=== PATIENT | female | born 1960 | race Caucasian/White ===

== ENCOUNTER 2019-06-27 07:25 | Inpatient (IN) | payer OTHER ==
[2019-06-27 08:03] LABS: Absolute Lymphocytes (CBC) 0.7 K/uL (0.7-4.9); Basophils % 0.4 % (0-1.3); Hematocrit 40.7 % (36.0-45.0); RBC Red Blood Cell Count 4.59 M/uL (3.86-4.86)
[2019-06-27] MEDS ORDERED: NA CHLORIDE 0.9% 1,000 ML ONE (08:24)
[2019-06-27] MEDS ORDERED: MEPERIDINE HCL 25 MG/0.5 ML ONE ×2 (08:24→10:47)
[2019-06-27] MEDS ORDERED: ONDANSETRON 4 MG/2 ML VIAL ONE (08:26)
[2019-06-27 08:29] LABS: Albumin 3.6 g/dL (3.4-5.0); Bilirubin Direct 0.2 mg/dL (0-0.2); Bilirubin Total 0.7 mg/dL (0.2-1.0); Potassium 3.8 mmol/L (3.5-5.1); Protein, Total 8.7 g/dL (6.4-8.2)
--- NOTE | 2019-06-27 09:33 | RAD REPORT ---
EXAM DESCRIPTION: CT - Abdomen Pelvis W Contrast - 06/27/2019 9:00 am CLINICAL HISTORY: Abdominal pain COMPARISON: 2018 TECHNIQUE: Computed axial tomography of the abdomen pelvis was obtained. 100 cc Isovue-300 was admin istered intravenously. Oral contrast was not requested which limits evaluation of bowel. All CT scans are performed using dose optimization technique as appropriate and may include automated exposure control or mA/KV adjustment according to patient size. FINDINGS: The liver has a diminished attenuation. Caudate and left lobes are prominent. Innumerable tiny low-density areas are present. Upper quadrant varices are present The spleen measures 14 centimeters. Multiple, bilateral renal calculi. No hydronephrosis. Renal cortical thinning perhaps secondary to pr ior inflammation The pancreas and adrenals unremarkable Postsurgical changes involve the the small bowel. A loop of jejunum is dilated within the anterior le ft lower abdomen measuring 4.5 centimeters. This is near the anastomotic site. Ill-defined stranding is present within the fat surrounding the proximal inferior mesenteric artery. There is no evidence of diverticulitis Borderline gallbladder distention IMPRESSION: Nonobstructing renal calculi Prominence of the caudate and left lobes of the liver probably indicating cirrhosis. Innumerable low- density areas within the liver are nonspecific. These may represent regenerating nodules. MRI are rec ommended for further evaluation Mild splenomegaly Dilated jejunum near the anastomotic site may represent an ileus or atonic loop. If the patient's lou n persists then followup complete abdominal series recommended Stranding within the fat adjacent to the inferior mesenteric artery may indicate inflammation
--- NOTE | 2019-06-27 09:34 | RAD REPORT ---
EXAM DESCRIPTION: US - Abdomen Exam Limited - 06/27/2019 8:53 am CLINICAL HISTORY: Abdominal pain. COMPARISON: None. FINDINGS: The gallbladder wall is not thickened. A gallstone is not seen. Small amount of sludge. B orderline gallbladder distention The biliary tree is normal caliber. IMPRESSION: Borderline gallbladder distention with a small amount of sludge
[2019-06-27 09:53] LABS: Blood Morphology Comment NOT SEEN (NOT SEEN); Platelet Estimate DECR; Urine White Blood Cell Casts OK
--- NOTE | 2019-06-27 10:52 | ER ---
Nurse's Notes [facility] Name: Pricila Franklin Age: 59 yrs Sex: Female : 1960 Arrival Date: 06/27/2019 Time: 07:27 Bed 17 Private MD: Mack Root T Diagnosis: Vomiting, unspecified;Unspecified abdominal pain;Unspecified cirrhosis of liver;Thrombocytopenia, unspecified Presentation: 06/27 07:36 Presenting complaint: Patient states: epigastric pain with RUQ pain, n/v since sv midnight. Denies diarrhea. Transition of care: patient was not received from another setting of care. Onset of symptoms was June 27, 2019 at 00:00. Risk Assessment: Do you want to hurt yourself or someone else? Patient reports no desire to harm self or others. Initial Sepsis Screen: Does the patient meet any 2 criteria? No. Patient's initial sepsis screen is negative. Does the patient have a suspected source of infection? No. Patient's initial sepsis screen is negative. Care prior to arrival: None. 07:36 Method Of Arrival: Ambulatory sv 07:36 Acuity: GABBY 3 sv Triage Assessment: 07:36 General: Appears in no apparent distress. uncomfortable, well groomed, well developed, sv Behavior is calm, cooperative, appropriate for age. Pain: Complains of pain in epigastric area and right upper quadrant Pain currently is 9 out of 10 on a pain scale. Quality of pain is described as crampy, Pain began midnight Is continuous. Neuro: Level of Consciousness is awake, alert, obeys commands, Oriented to person, place, time, situation, Gait is steady. Respiratory: Airway is patent Respiratory effort is even, unlabored, Respiratory pattern is regular, symmetrical. GI: Abdomen is round non-distended, Reports nausea, vomiting, Patient currently denies diarrhea. Derm: Skin is normal. Historical: - Allergies: 07:43 No Known Allergies; sv - Home Meds: 07:43 Estradiol Oral [Active]; unk sleep med [Active]; unk allergy med [Active]; sv 08:52 Metformin Oral [Active]; sv - PMHx: 08:52 Diabetes - NIDDM; sv - PSHx: 07:43 Hysterectomy; Bowel resection; ovary; sv - Immunization history:: Adult Immunizations up to date. - Family history:: not pertinent. - Social history:: Smoking status: Patient/guardian denies using tobacco. - Ebola Screening: : Patient negative for fever greater than or equal to 101.5 degrees Fahrenheit, and additional compatible Ebola Virus Disease symptoms Patient denies exposure to infectious person Patient denies travel to an Ebola-affected area in the 21 days before illness onset No symptoms or risks identified at this time. - Hospitalizations: : No recent hospitalization is reported. Screenin:45 Abuse screen: Denies threats or abuse. Denies injuries from another. Nutritional sv screening: No deficits noted. Tuberculosis screening: No symptoms or risk factors identified. Fall Risk None identified. Assessment: 08:25 Reassessment: Patient appears in no apparent distress at this time. No changes from sv previously documented assessment. Patient and/or family updated on plan of care and expected duration. Pain level reassessed. Patient is alert, oriented x 3, equal unlabored respirations, skin warm/dry/pink. See triage assessment. 08:51 Reassessment: Ultrasound completed at bedside. sv 09:50 Reassessment: Patient appears in no apparent distress at this time. Patient and/or sv family updated on plan of care and expected duration. Pain level reassessed. Patient is alert, oriented x 3, equal unlabored respirations, skin warm/dry/pink. 10:50 Reassessment: Patient appears in no apparent distress at this time. Patient and/or sv family updated on plan of care and expected duration. Pain level reassessed. Patient is alert, oriented x 3, equal unlabored respirations, skin warm/dry/pink. Reports pain is coming back, informed Dr Paz, medication ordered. 11:06 Reassessment: Dr. Cobos at bedside. ca1 11:06 Reassessment: Patient appears in no apparent distress at this time. Patient and/or ca1 family updated on plan of care and expected duration. Pain level reassessed. Patient is alert, oriented x 3, equal unlabored respirations, skin warm/dry/pink. 11:06 GI: Bowel sounds present X 4 quads. Abd is soft X 4 quads Abdomen is tender to ca1 palpation in right upper quadrant and epigastric area. 12:33 Reassessment: Patient appears in no apparent distress at this time. Patient and/or ca1 family updated on plan of care and expected duration. Pain level reassessed. Patient is alert, oriented x 3, equal unlabored respirations, skin warm/dry/pink. Pending room assignment. 13:35 Reassessment: Patient appears in no apparent distress at this time. Patient and/or ca1 family updated on plan of care and expected duration. Pain level reassessed. Patient is alert, oriented x 3, equal unlabored respirations, skin warm/dry/pink. 13:52 Reassessment: Called for report, Nurse will call back. ca1 14:00 Reassessment: Patient appears in no apparent distress at this time. Patient and/or jb8 family updated on plan of care and expected duration. Pain level reassessed. Patient is alert, oriented x 3, equal unlabored respirations, skin warm/dry/pink. Vital Signs: 07:43 BP 156 / 101 LA Sitting (auto/lg); Pulse 90; Resp 18; Temp 97.5(TE); Pulse Ox 99% ; sv Weight 79.38 kg; Height 5 ft. 1 in. (154.94 cm); Pain 9/10; 08:30 BP 141 / 84; Pulse 89; Resp 18; Pulse Ox 98% on R/A; sv 08:45 BP 153 / 81; Pulse 94; Resp 18; Pulse Ox 98% ; sv 10:31 BP 147 / 70; Pulse 88; Resp 16; Pulse Ox 98% ; sv 11:38 BP 119 / 79; Pulse 83; Resp 17 S; Pulse Ox 100% on R/A; ca1 12:33 BP 113 / 73; Pulse 91; Resp 16 S; Pulse Ox 98% on R/A; ca1 13:35 BP 106 / 61; Pulse 87; Resp 16 S; Pulse Ox 97% on R/A; ca1 14:00 BP 106 / 61; Pulse 87; Resp 19; Pulse Ox 97% ; jb8 07:43 Body Mass Index 33.07 (79.38 kg, 154.94 cm) sv ED Course: 07:27 Patient arrived in ED. ag5 07:28 Mack Root MD is Private Physician. ag5 07:35 Darío Paz MD is Attending Physician. rn 07:36 Erinn Becerra RN is Primary Nurse. sv 07:41 Triage completed. sv 07:45 Radiology exam delayed due to lab results not completed at this time. (BUN/Creatinine). mw3 07:45 Patient has correct armband on for positive identification. Placed in gown. Bed in low sv position. Call light in reach. Pulse ox on. NIBP on. Door closed. Head of bed elevated. 08:05 Initial lab(s) drawn, by me, sent to lab. Inserted saline lock: 22 gauge in right ms forearm, using aseptic technique. Blood collected. 08:45 Radiology exam delayed due to pt having an ultrasound. bq 08:[address] via stretcher. sv 08:54 US Abdomen Limited In Process Unspecified. EDMS 08:54 Ultrasound completed. Patient tolerated well. sg3 08:58 CT completed. Patient tolerated procedure well. Patient moved back from CT. bq 09:00 CT Abd/Pelvis - IV Contrast Only In Process Unspecified. EDMS 10:50 Robbie Cobos is Hospitalizing Provider. rn 11:00 Arm band placed on right wrist. ca1 11:00 Report given to Cecily BOYLE. sv 13:28 Cecily Sawyer RN is Primary Nurse. ca1 13:50 No provider procedures requiring assistance completed. Patient admitted, IV remains in ca1 place. Administered Medications: 08:25 Drug: NS 0.9% 1000 ml Route: IV; Rate: 1000 ml; Site: right forearm; sv 13:27 Follow up: Response: No adverse reaction; IV Status: Completed infusion; IV Intake: ca1 1000ml 08:25 Drug: Zofran 4 mg Route: IVP; Site: right forearm; sv 11:00 Follow up: Response: No adverse reaction; Nausea is decreased ca1 08:27 Drug: Demerol 25 mg {Note: RASS1.} Route: IVP; Site: right forearm; sv 10:50 Follow up: Response: No adverse reaction; Pain is unchanged, physician notified ca1 10:54 Drug: Demerol 25 mg {Note: RASS1.} Route: IVP; Site: right forearm; sv 12:36 Follow up: Response: No adverse reaction; Pain is decreased ca1 Intake: 13:27 IV: 1000ml; Total: 1000ml. ca1 Outcome: 10:51 Decision to Hospitalize by Provider. rn 13:59 Admitted to Tele accompanied by deb, via wheelchair, room 429, with chart, Report ca1 called to Marisol Bennett RN 13:59 Condition: stable 13:59 Instructed on the need for admit. 14:23 Patient left the ED. jb8 Signatures: Dispatcher [employer] Erinn Larios, RN RN Najma Oneil Maria ms Nieto, Roman, MD MD rn Godinez, Sarah 3 Pennie Boss 3 Cecily Sawyer RN RN lillie Cheney, Maryse 5 Immanuel Cortés jb8 Corrections: (The following items were deleted from the chart) 08:52 07:43 PMHx: None; chante sharif
--- NOTE | 2019-06-27 10:53 | EDPHYS ---
Physician Documentation [facility] Name: Pricila Franklin Age: 59 yrs Sex: Female : 1960 Arrival Date: 06/27/2019 Time: 07:27 Bed 17 Private MD: Mack Root T ED Physician Darío Paz HPI: 06/27 08:00 This 59 yrs old Female presents to ER via Ambulatory with complaints of rn Abdominal Pain, Abdominal Cramping, Vomiting. 08:00 The patient presents with abdominal pain that is diffuse. Onset: The symptoms/episode rn began/occurred last night. The symptoms do not radiate. Associated signs and symptoms: Pertinent positives: nausea and vomiting, Pertinent negatives: blood in stools, chest pain, constipation, diarrhea, fever, shortness of breath, vomiting blood. The symptoms are described as achy, sharp. Modifying factors: The symptoms are alleviated by nothing, the symptoms are aggravated by touching the area. Severity of pain: At its worst the pain was moderate in the emergency department the pain is unchanged. The patient has not experienced similar symptoms in the past. Reports mid and diffuse abd pain since last night, assoc with nausea/vomiting, no diarrhea. NO chest pain. feels different from previous kidney stone.. Historical: - Allergies: 07:43 No Known Allergies; sv - Home Meds: 07:43 Estradiol Oral [Active]; unk sleep med [Active]; unk allergy med [Active]; sv 08:52 Metformin Oral [Active]; sv - PMHx: 08:52 Diabetes - NIDDM; sv - PSHx: 07:43 Hysterectomy; Bowel resection; ovary; sv - Immunization history:: Adult Immunizations up to date. - Family history:: not pertinent. - Social history:: Smoking status: Patient/guardian denies using tobacco. - Ebola Screening: : Patient negative for fever greater than or equal to 101.5 degrees Fahrenheit, and additional compatible Ebola Virus Disease symptoms Patient denies exposure to infectious person Patient denies travel to an Ebola-affected area in the 21 days before illness onset No symptoms or risks identified at this time. - Hospitalizations: : No recent hospitalization is reported. ROS: 08:00 Constitutional: Negative for fever, chills, and weight loss, Eyes: Negative for injury, rn pain, redness, and discharge, Neck: Negative for injury, pain, and swelling, Cardiovascular: Negative for chest pain, palpitations, and edema, Respiratory: Negative for shortness of breath, cough, wheezing, and pleuritic chest pain, Abdomen/GI: Negative for diarrhea, and constipation Back: Negative for injury and pain, : Negative for injury, bleeding, discharge, and swelling, MS/Extremity: Negative for injury and deformity, Skin: Negative for injury, rash, and discoloration, Neuro: Negative for headache, weakness, numbness, tingling, and seizure. Exam: 08:00 Constitutional: This is a well developed, well nourished patient who is awake, alert, rn appears uncomfortable Head/Face: Normocephalic, atraumatic. ENT: dry MM Cardiovascular: Regular rate and rhythm. No pulse deficits. Respiratory: No increased work of breathing, no retractions or nasal flaring. Abdomen/GI: soft, mild RUQ/epigastric/LUQ tenderness, no taylor sor rebound MS/ Extremity: Pulses equal, no cyanosis. Neurovascular intact. Full, normal range of motion. Equal circumference. Neuro: Awake and alert, GCS 15, oriented to person, place, time, and situation. Motor strength 5/5 in all extremities. Sensory grossly intact. Cerebellar exam normal. Vital Signs: 07:43 BP 156 / 101 LA Sitting (auto/lg); Pulse 90; Resp 18; Temp 97.5(TE); Pulse Ox 99% ; sv Weight 79.38 kg; Height 5 ft. 1 in. (154.94 cm); Pain 9/10; 08:30 BP 141 / 84; Pulse 89; Resp 18; Pulse Ox 98% on R/A; sv 08:45 BP 153 / 81; Pulse 94; Resp 18; Pulse Ox 98% ; sv 10:31 BP 147 / 70; Pulse 88; Resp 16; Pulse Ox 98% ; sv 11:38 BP 119 / 79; Pulse 83; Resp 17 S; Pulse Ox 100% on R/A; ca1 12:33 BP 113 / 73; Pulse 91; Resp 16 S; Pulse Ox 98% on R/A; ca1 13:35 BP 106 / 61; Pulse 87; Resp 16 S; Pulse Ox 97% on R/A; ca1 14:00 BP 106 / 61; Pulse 87; Resp 19; Pulse Ox 97% ; jb8 07:43 Body Mass Index 33.07 (79.38 kg, 154.94 cm) sv MDM: 07:35 Patient medically screened. rn 10:40 ED course: Consulted with Dr. Domingo, will come and evaluate patient. Nausea and pain rn resolved with medication. Plan to observe in hospital given questionable ileus and nonspecific stranding of mesentery and near mesenteric artery. lactate normal, WBC normal. . 10:49 Differential diagnosis: bowel obstruction, cholecystitis, Cholelithiasis, rn diverticulitis, gastritis, Hepatitis, Mesenteric ischemia or infarction, non-specific abd pain, pancreatitis, Peptic Ulcer Disease, Pyelonephritis, Ureterolithiasis, urinary tract infection. Data reviewed: vital signs, nurses notes, lab test result(s), radiologic studies, CT scan, ultrasound, and as a result, I will admit patient. Counseling: I had a detailed discussion with the patient and/or guardian regarding: the historical points, exam findings, and any diagnostic results supporting the discharge/admit diagnosis, lab results, radiology results, the need for further work-up and treatment in the hospital. Response to treatment: the patient's symptoms have mildly improved after treatment, and as a result, I will admit patient. Admission orders: after a detailed discussion of the patient's condition and case, the admit orders are written by me. 06/27 07:42 Order name: Basic Metabolic Panel; Complete Time: 08:30 rn 06/27 07:42 Order name: CBC with Diff; Complete Time: 10:28 06/27 07:42 Order name: Creatinine for Radiology; Complete Time: 08:30 rn 06/27 07:42 Order name: Hepatic Function; Complete Time: 08:30 rn 06/27 07:42 Order name: Lipase; Complete Time: 08:30 rn 06/27 09:53 Order name: CBC Smear Scan; Complete Time: 10:28 EDMS 06/27 07:42 Order name: CT Abd/Pelvis - IV Contrast Only; Complete Time: 09:36 rn 06/27 07:42 Order name: US Abdomen Limited; Complete Time: 09:36 rn 06/27 09:55 Order name: Lactate; Complete Time: 10:35 mt 06/27 10: Order name: Urine Dipstick--Ancillary (enter results); Complete Time: 11:15 mt 10/26 10:26 Order name: Urine --Ancillary (enter results); Complete Time: 11:15 mt 06/27 07:42 Order name: IV Saline Lock; Complete Time: 08:05 rn 06/27 07:42 Order name: Labs collected and sent; Complete Time: 08:05 rn Administered Medications: 08:25 Drug: NS 0.9% 1000 ml Route: IV; Rate: 1000 ml; Site: right forearm; sv 13:27 Follow up: Response: No adverse reaction; IV Status: Completed infusion; IV Intake: ca1 1000ml 08:25 Drug: Zofran 4 mg Route: IVP; Site: right forearm; sv 11:00 Follow up: Response: No adverse reaction; Nausea is decreased ca1 08:27 Drug: Demerol 25 mg {Note: RASS1.} Route: IVP; Site: right forearm; sv 10:50 Follow up: Response: No adverse reaction; Pain is unchanged, physician notified ca1 10:54 Drug: Demerol 25 mg {Note: RASS1.} Route: IVP; Site: right forearm; sv 12:36 Follow up: Response: No adverse reaction; Pain is decreased ca1 Disposition: 06/27/19 10:51 Hospitalization ordered by Robbie Cobos for Observation. Preliminary diagnosis are Vomiting, unspecified, Unspecified abdominal pain, Unspecified cirrhosis of liver, Thrombocytopenia, unspecified. - Bed requested for Telemetry/MedSurg (observation). - Status is Observation. jb8 - Condition is Stable. - Problem is new. - Symptoms have improved. UTI on Admission? No Signatures: Dispatcher [employer] EDMS Erinn Becerra RN RN Estrella Armando RN RN Darío Paz MD MD rn Acob, Cheryl, RN RN [facility] Immanuel Cortés jb8 Corrections: (The following items were deleted from the chart) 08:52 07:43 PMHx: None; sv 13:07 10:51 Hospitalization Ordered by Robbie Cobos for Observation. Preliminary diagnosis dw is Vomiting, unspecified; Unspecified abdominal pain; Unspecified cirrhosis of liver; Thrombocytopenia, unspecified. Bed requested for Telemetry/MedSurg (observation). Status is Observation. Condition is Stable. Problem is new. Symptoms have improved. UTI on Admission? No. rn 14:23 13:07 06/27/2019 10:51 Hospitalization Ordered by Robbie Cobos for Observation. jb8 Preliminary diagnosis is Vomiting, unspecified; Unspecified abdominal pain; Unspecified cirrhosis of liver; Thrombocytopenia, unspecified. Bed requested for Telemetry/MedSurg (observation). Status is Observation. Condition is Stable. Problem is new. Symptoms have improved. UTI on Admission? No. dw
[2019-06-27 11:09] LABS: Urine Blood 1+ (NEG); Urine Glucose 2+ (NEG); Urine Protein NEGATIVE (NEG); Urine Specific Gravity 1.015 (1.005-1.030)
--- NOTE | 2019-06-27 12:00 | P.HP ---
Certification for Inpatient With expected LOS: <2 Midnights Practitioner: I am a practitioner with admitting privileges, knowledge of patient current condition, hospital course, and medical plan of care. Services: Services provided to patient in accordance with Admission requirements found in Title 42 Section 412.3 of the Code of Federal Regulations Patient History Date of Service: 06/28/19 Reason for admission: Abdominal pain History of Present Illness: 59-year-old woman with a history diabetes mellitus type 2 presented emergency department with a complaint of sudden onset of abdominal pain, located in the left upper quadrant, maximum intensity 10/10, nonradiating, pain described as squeezing and colicky, no known aggravating or relieving factors, not associated with meals. Patient denied any diarrhea or constipation. She endorsed nausea and dry heaving. She denied any fever. In the ED, CT scan of the abdomen and pelvis reported findings suggestive of liver cirrhosis, right upper quadrant varices, and a dilated loop of jejunum close to an area of prior end-to-end anastomosis and borderline distended gallbladder. This was followed by an abdominal ultrasound which confirmed borderline distended gallbladder and normal biliary tree. AST is mildly elevated, bilirubin is normal, lipase is within normal limits. She denied any history of hepatitis. She also denied any heavy alcohol use. Patient is placed under observation for further management. Allergies No Known Allergies Allergy (Unverified 09/07/17 07:48) Home Medications: Loratadine [Claritin*] 1 tab PO DAILY 06/27/19 Metformin HCl [Metformin HCl ER] 1 tab PO BID 06/27/19 Mirtazapine 1 tab PO BEDTIME 06/27/19 - Past Medical/Surgical History -: Diabetes mellitus type 2 -: Hysterectomy - Family History Mother -: Diabetes - Social History Smoking Status: Never smoker Alcohol use: No CD- Drugs: No Review of Systems Other: General: No fever, no malaise, no unintentional weight loss. Eyes: No eye discharge, Respiratory: No cough, no shortness of breath. CVS: No chest pain, no palpitation, no lightheadedness. Genitourinary: No dysuria, no urinary frequency, no incontinence, no hematuria. Musculoskeletal: No joint pains, or joint swelling, no gait instability. Neurology: No headache, no asymmetric, weakness, no problem with swallowing. Except as documented, all other systems reviewed and negative. Physical Examination - Physical Exam General: Alert, In no apparent distress, Oriented x3 HEENT: Atraumatic, Normocephalic, PERRLA, Mucous membr. moist/pink Neck: Supple, 2+ carotid pulse no bruit, JVD not distended, No Thyromegaly Respiratory: Clear to auscultation bilaterally, Normal air movement Cardiovascular: No edema, Normal pulses, Regular rate/rhythm, No murmurs Capillary refill: <2 Seconds Gastrointestinal: Normal bowel sounds, Soft and benign, Non-distended, No ascites, Tenderness (Tenderness elicited on deep palpation of the left upper quadrant.) Musculoskeletal: No swelling, No erythema Integumentary: No rashes, No erythema Neurological: Normal speech, Normal strength at 5/5 x4 extr, Cranial nerves 3- 12 intact - Studies Laboratory Data (last 24 hrs) 06/27/19 07:51: Creatinine 0.98 06/27/19 07:51: WBC 5.3, Hgb 13.6, Hct 40.7, Plt Count 88 L 06/27/19 07:51: Sodium 138, Potassium 3.8, BUN 15, Creatinine 1.00, Glucose 391 H, Total Bilirubin 0.7, AST 42 H, ALT 35, Alkaline Phosphatase 85, Lipase 111 Imagings Data: CT abdomen and pelvis: FINDINGS: The liver has a diminished attenuation. Caudate and left lobes are prominent. Innumerable tiny low-density areas are present. Upper quadrant varices are present The spleen measures 14 centimeters. Multiple, bilateral renal calculi. No hydronephrosis. Renal cortical thinning perhaps secondary to prior inflammation The pancreas and adrenals unremarkable Postsurgical changes involve the the small bowel. A loop of jejunum is dilated within the anterior left lower abdomen measuring 4.5 centimeters. This is near the anastomotic site. Ill-defined stranding is present within the fat surrounding the proximal inferior mesenteric artery. There is no evidence of diverticulitis Borderline gallbladder distention IMPRESSION: Nonobstructing renal calculi Prominence of the caudate and left lobes of the liver probably indicating cirrhosis. Innumerable low-density areas within the liver are nonspecific. These may represent regenerating nodules. Assessment and Plan - Problems (Diagnosis) (1) Abdominal pain Current Visit: Yes Status: Acute (2) Diabetes mellitus type 2 in obese Current Visit: Yes Status: Acute (3) Liver cirrhosis Current Visit: Yes Status: Acute - Plan Place under observation Supportive measures with IV hydration, antiemetics, and IV opiates p.r.n. for pain. Repeat KUB tomorrow to follow the jejunal dilatation. Case discussed with Dr. Domingo. Small bowel series to be done if her symptoms does not improve. Screen for hepatitis Further workup for liver cirrhosis, varices and splenomegaly as outpatient. Hold metformin. Manage blood sugar with insulin sliding scale. Check hemoglobin A1c - Advance Directives Does patient have a Living Will: No Does patient have a Durable POA for Healthcare: No
[2019-06-27 14:34] VITALS: BMI 34.4
--- NOTE | 2019-06-27 15:07 | CON ---
Date of Consultation: 06/27/2019 Reason For Consultation: Abdominal pain. History Of Present Illness: Patient is a 59-year-old female comes in with acute onset of epigastric left upper quadrant abdominal pain associated with nausea and vomiting started last night after eatin g some [employer]. Never had pain like this before. It was colicky in nature. She is passing gas an d has had bowel movements yesterday. No dysuria or hematuria. No sore throat, runny nose, cough, he adaches, or dizziness. No chest pain. She did have some subjective fever, but afebrile here. She h as had a hysterectomy 19 years ago, from which there was some complication with the small intestine. She had 4 feet of small intestine resected at the same time. Review of Systems: Otherwise unremarkable. Past Medical History: Diabetes. Past Surgical History: Hysterectomy and bowel resection. Allergies: NO ALLERGIES. SHE DENIES ANY EXPOSURE TO HEPATITIS. Social History: She does not smoke. Drinks rarely. Family History: Noncontributory. Physical Examination: Vital Signs: Stable. Pulse is elevated at 118 on admission and temperature was 102.4 on admission i nitially and then came down and that was at midnight. General: She is awake, alert, and oriented x3. Head and Neck: Cranial nerves 2 through 12 are grossly within normal limits. No neck masses. No JV D. Throat clear. Neck is supple. Chest: Clear. Heart: S1 and S2. Abdomen: Soft. Mild distention in the upper abdomen. Tender in the left upper quadrant. No rigidi ty or guarding. Hypoactive bowel sounds. Extremities: Adequately perfused. Nontender. Neuro: Nonfocal. Laboratory Data: White count is normal with platelets of 88,000 and she does have a slight left shif t of 82.7%. Chemistry reviewed. Her glucose is elevated at 291, lactic acid is 1.6. AST is 42. CT of the abdomen and pelvis reviewed as well as the ultrasound. Ultrasound does not show thickened ga llbladder wall. It, however, shows mild distention of the gallbladder with sludge in the gallbladder . The CAT scan shows a nonobstructing renal calculi, prominence of the caudate and liver lobes proba jose indicating cirrhosis, innumerable low density areas within the liver are nonspecific. These may represent regenerating nodules. MRI recommended for further evaluation. Mild splenomegaly. Dilated jejunum near the anastomotic site, may represent an ileus or atonic loop. If the patient's pain per sists, then followup complete abdominal series recommended. Assessment: A 59-year-old female with abdominal pain, etiology is unclear. Probably is a dilated lo op of small bowel with mild inflammation. Gastroenteritis is probably the acute cause of her symptom s; however, she does have other issues that need to be addressed such as the cirrhosis, the nonspecif ic nodules in the liver, and thrombocytopenia. She will need to see a GI specialist as an outpatient as we do not have one on-call. MRI is recommended for the liver, which should be done while she is here. We will keep her on empiric antibiotics and n.p.o. right now until she is better, then we coul d start her on diet. She will need her abdominal x-rays checked tomorrow to make sure she is improvi ng. She will need serial abdominal exam, and we will follow the patient while in the hospital. ED/KAYKAY Voice ID: [id number] Report ID: [id number]
[2019-06-27] MEDS: MORPHINE 2 MG/ML SYR IV PRN ×3 (15:10→23:33)
[2019-06-27] MEDS: NA CHLORIDE 0.9% 1,000 ML IV SCH ×2 (15:11→23:32)
[2019-06-27] MEDS ORDERED: INSULIN -REGULAR HUMAN 50 UNIT/0.5 ML ML SQ SCH (16:30)
[2019-06-27] MEDS ORDERED: D50W 25 GM/50 ML SYRINGE IV PRN (19:59)
[2019-06-27] MEDS ORDERED: GLUCAGON 1 MG/VIAL IM PRN (19:59)
[2019-06-27 20:50] LABS: Urine Appearance CLOUDY; Urine Bilirubin NEGATIVE (NEG); Urine Blood 2+ (NEG); Urine Color YELLOW; Urine Glucose TRACE (NEG); Urine Protein NEGATIVE (NEG); Urine Specific Gravity >=1.030 (1.005-1.030)
[2019-06-27 21:14] LABS: Urine Microscopic Reflex ORDER UMIC
[2019-06-27 21:16] LABS: Urine Bacteria >50 /HPF (<20); Urine Culture Reflex Order REFLEXED; Urine Mucus SLIGHT /HPF (NONE SEEN)
[2019-06-27] MEDS: INSULIN -REGULAR HUMAN 50 UNIT/0.5 ML ML SQ SCH (23:32)
[2019-06-28] MEDS: NA CHLORIDE 0.9% 1,000 ML IV SCH ×3 (00:34→16:14)
[2019-06-28] MEDS: MORPHINE 2 MG/ML SYR IV PRN ×5 (04:29→20:14)
[2019-06-28] MEDS: INSULIN -REGULAR HUMAN 50 UNIT/0.5 ML ML SQ SCH ×4 (05:43→20:15)
[2019-06-28 06:08] LABS: Absolute Lymphocytes (CBC) 1.5 K/uL (0.7-4.9); Albumin 2.8 g/dL (3.4-5.0); Basophils % 0.4 % (0-1.3); Bilirubin Total 0.7 mg/dL (0.2-1.0); Hematocrit 34.6 % (36.0-45.0); Lymphocytes % 35.4 % (15.3-44.8); MPV 10.1 fL (7.6-11.3); Magnesium 1.8 mg/dL (1.8-2.4); Phosphorus 2.5 mg/dL (2.5-4.9); Potassium 4.3 mmol/L (3.5-5.1); Protein, Total 6.9 g/dL (6.4-8.2); RBC Red Blood Cell Count 3.88 M/uL (3.86-4.86)
[2019-06-28] MEDS ORDERED: MAGNESIUM SULFATE 1 gm IVPB 1 GM/100 ML BAG IV ONE (07:30)
[2019-06-28] MEDS: CEFTRIAXONE/SWI 1gm 1 GM/10 ML SYR IVP SCH (08:56)
[2019-06-28] MEDS ORDERED: POTASSIUM PHOS IN 0.9 % NACL 15 MMOL/250 ML BAG IV ONE (09:00)
--- NOTE | 2019-06-28 11:16 | P.PN ---
Subjective Date of Service: 06/28/19 Chief Complaint: Abdominal pain Patient reports persistent abdominal pain rated at 8/10. She denies any nausea or vomiting. She has been afebrile. She reports no bowel movement yet but has been passing flatus. Urinalysis is positive for UTI. Urine culture is pending. Physical Examination - Vital Signs Temperature: 97.2 F Blood Pressure: 108/57 Pulse: 70 Respirations: 18 Pulse Ox (%): 96 - Physical Exam General: Alert, In no apparent distress, Oriented x3 HEENT: Mucous membr. moist/pink Neck: Supple, JVD not distended Respiratory: Clear to auscultation bilaterally, Normal air movement Cardiovascular: No edema, Regular rate/rhythm, Normal S1 S2, No murmurs Gastrointestinal: Normal bowel sounds, Non-distended, No rebound, No guarding, Tenderness (Moderate tenderness elicited in the left upper quadrant.) Musculoskeletal: No swelling, No erythema Integumentary: No rashes Neurological: Normal speech, Normal strength at 5/5 x4 extr Assessment And Plan - Current Problems (Diagnosis) (1) Abdominal pain Current Visit: Yes Status: Acute (2) Diabetes mellitus type 2 in obese Current Visit: Yes Status: Acute (3) Liver cirrhosis Current Visit: Yes Status: Acute - Plan Continue supportive measures with IV hydration, antiemetics, and IV opiates p.r.n. for pain. Repeat KUB erect and supine today. Patient has been seen by Dr. Domingo. Case discussed with Dr. Domingo. Screen for hepatitis is pending. Further workup for liver cirrhosis, varices and splenomegaly as outpatient. Start IV Rocephin for UTI. Hold metformin. Manage blood sugar with insulin sliding scale. Hemoglobin A1c is pending Longer-acting insulin pending hemoglobin A1c result.
--- NOTE | 2019-06-28 11:44 | RAD REPORT ---
EXAM DESCRIPTION: RAD - Abdomen W Erect - 06/28/2019 11:32 am CLINICAL HISTORY: Abd Pain Pain COMPARISON: Abdomen Pelvis W Contrast dated 06/27/2019 FINDINGS: The bowel gas pattern is non-obstructive. No evidence of free air or pneumatosis. Several right-sided renal calculi noted. No significant bony findings. IMPRESSION: Right nephrolithiasis.
--- NOTE | 2019-06-28 15:08 | PN ---
Date of Progress Note: 06/28/2019 Subjective: Patient is still in pain, passing gas. No bowel movements. No significant nausea or vo miting. Pain is in the left upper quadrant. Objective: Vital Signs: Stable. Afebrile. Abdomen: Minimal tenderness in the left side. No rebound, rigidity, or guarding. Slightly distende d. Hypoactive bowel sounds. Assessment: Abdominal pain, etiology probable gastroenteritis with a dilated jejunal loop that was s een on the CAT scan. Recommendations: We will continue antibiotics and n.p.o. We will check an abdominal x-ray, and if t hat does not show significant change, she may benefit from a small bowel series. Plan of care discus sed in detail with Dr. Cobos. We will get an MRI of the liver tomorrow to see what the lesion in th e liver are. /MODL Voice ID: [id number] Report ID: [id number]
[2019-06-28] MEDS: ONDANSETRON 4 MG/2 ML VIAL IV PRN (16:09)
[2019-06-29] MEDS: MORPHINE 2 MG/ML SYR IV PRN ×4 (00:13→11:55)
[2019-06-29] MEDS: NA CHLORIDE 0.9% 1,000 ML IV SCH ×4 (01:33→21:43)
[2019-06-29 06:19] LABS: Magnesium 1.9 mg/dL (1.8-2.4); Phosphorus 2.7 mg/dL (2.5-4.9); Potassium 4.4 mmol/L (3.5-5.1)
[2019-06-29] MEDS: INSULIN -REGULAR HUMAN 50 UNIT/0.5 ML ML SQ SCH ×4 (07:30→21:42)
[2019-06-29] MEDS: CEFTRIAXONE/SWI 1gm 1 GM/10 ML SYR IVP SCH (08:25)
--- NOTE | 2019-06-29 09:05 | RAD REPORT ---
EXAM DESCRIPTION: MRI - Abdomen WWo Cont - 06/29/2019 8:05 am CLINICAL HISTORY: Liver cirrhosis Abdominal pain COMPARISON: Abdomen Pelvis W Contrast dated 09/07/2017; Abdomen Pelvis W Contrast dated 06/27/2019 FINDINGS: Trace pleural fluid. The liver appears enlarged in size and diffusely heterogenous with numerous small areas of hypointens ity. These small areas show no post-contrast enhancement and likely are related to regenerating nodul es secondary to cirrhosis. Mild diffuse fatty infiltration pattern is also seen throughout the liver parenchyma. The spleen is mildly enlarged in size. Both adrenal glands are normal. No renal mass or hydronephrosi s present. The pancreas is unremarkable. The gallbladder is quite distended. Trace free fluid is seen in the upper abdomen. No bulky lymphadenopathy seen in the abdomen. IMPRESSION: Liver cirrhosis is identified with fatty infiltration. Nonenhancing innumerable hypointe nse small hepatic lesions likely represent regenerating nodules. No aggressive enhancing liver mass p resent. Prominent gallbladder distension.
[2019-06-29] MEDS ORDERED: HYDROCODONE/APAP 7.5/325 MG TAB PO PRN (14:56)
--- NOTE | 2019-06-29 15:24 | PN ---
Date of Progress Note: 06/29/2019 Subjective: Patient is awake, alert, still complaining of left-sided abdominal pain. No right-sided abdominal pain. Was tolerating her clear liquid, is passing gas. Objective: Vital Signs: Stable. She is afebrile. General: She is awake. Laboratory Data: Reviewed. Chemistry reviewed, essentially unremarkable. She had an MRI done of th e abdomen shows liver cirrhosis is identified with fatty infiltration, not enhancing innumerable hypo intense small hepatic lesions, likely represent regenerating nodules. No aggressive enhancing liver mass present following gallbladder distention. Assessment: Abdominal pain, which is on the left side, it is unlikely to be related to the gallbladd er. She does have cirrhosis, which is newly diagnosed and her bowel obstruction has resolved as per the abdominal x-ray yesterday and today's finding and the fact that patient is tolerating her liquid and passing gas. Plan: Recommendation would be to advance the diet should she tolerate it. She can be discharged regan e with followup with GI. There is no need for any acute surgical intervention at this time. Her gal lbladder can be studied as an outpatient, should her pain be more on the right side and postprandial in the nature. However, at this time, it is on the left side and I do not believe it is the gallblad benjamín, is the issue currently. ED/KAYKAY Voice ID: [id number] Report ID: [id number]
[2019-06-29] MEDS ORDERED: MORPHINE 2 MG/ML SYR IV ONE (18:47)
[2019-06-29] MEDS: MIRTAZAPINE 15 MG TAB PO SCH (21:42)
--- NOTE | 2019-06-30 06:10 | DS ---
Consultants: Dr. Domingo with General Surgery. Admitting Diagnoses: 1. Acute abdominal pain. 2. Diabetes mellitus type 2 with hyperglycemia. 3. Liver cirrhosis. Discharge Diagnoses: 1. Acute abdominal pain, improved. 2. Diabetes mellitus type 2 with hyperglycemia without use of insulin. 3. Liver cirrhosis. 4. Liver nodules secondary to liver cirrhosis. 5. Asymptomatic bacteriuria. Hospital Course: Patient is a 59-year-old female with past medical history of diabetes, comes in with abdominal pain in the left upper quadrant. Patient's imaging studies showed liver cirrhosis, borderline distended gallbladder. Abdominal ultrasound confirmed borderline distended gallbladder, but normal biliary tree. Patient was seen by Dr. Domingo. MRI of the abdomen was done to further elucidate the lesions on her lobe were found to be nonenhancing numerable hypointense small hepatic lesions likely represent regenerating nodules. No aggressive enhancing liver mass was present. She had prominent gallbladder distention and she had liver cirrhosis. Dr. Domingo did not recommend any surgical intervention at this time. Patient will need GI for her liver cirrhosis. Patient did have nephrolithiasis seen on abdominal x-ray on the right side. Overall, the patient did well. She was then cleared for discharge. Her pain had resolved. She will be sent home on antibiotics. Diet: Low-sodium, fluid-restricted diet. Activity: As tolerated. Followup: Follow up with primary care physician in 2 to 3 days. Follow up with GI in 2 weeks. Return to ER for worsening condition. Medications: As per medication reconciliation list. Physical Examination: General: Awake, alert, and oriented x3. No acute distress. CV: S1, S2. No murmurs. Respiratory: Moving air well bilaterally. Gastrointestinal: Abdomen is soft, nontender, nondistended. Positive bowel sounds. Extremities: No clubbing, cyanosis or edema. Neurologic: Nonfocal. Time Spent: Total time spent discharging the patient was 35 minutes. ADDENDUM: Patient had recurrent pain, not being able to be weaned off IV pain medications. Hold DC and obtain HIDA scan in am. /KAYKAY Voice ID: [id number] Report ID: [id number] ALEJANDRO
[2019-06-30 06:28] LABS: Hematocrit 34.6 % (36.0-45.0); MPV 11.6 fL (7.6-11.3); RBC Red Blood Cell Count 3.91 M/uL (3.86-4.86)
[2019-06-30] MEDS: NA CHLORIDE 0.9% 1,000 ML IV SCH ×3 (07:25→16:36)
[2019-06-30 07:28] LABS: Potassium 4.1 mmol/L (3.5-5.1)
[2019-06-30] MEDS: HYDROCODONE/APAP 7.5/325 MG TAB PO PRN ×4 (07:29→21:02)
[2019-06-30] MEDS: CEFTRIAXONE/SWI 1gm 1 GM/10 ML SYR IVP SCH (08:51)
[2019-06-30] MEDS: INSULIN -REGULAR HUMAN 50 UNIT/0.5 ML ML SQ SCH ×4 (08:51→21:03)
[2019-06-30] MEDS: LORATADINE 10 MG TAB PO SCH (08:51)
--- NOTE | 2019-06-30 15:37 | PN ---
Date of Progress Note: 06/30/2019 Subjective: Patient seen and examined. Chart reviewed and case discussed with RN. Patient is still having pain on the left side of her abdomen, dry cans back tender. Continues to have nausea, not really able to tolerate her GI soft diet. Therefore, was not discharged yesterday. Medications: List reviewed. Physical Examination: Vital Signs: Temperature 97.7, heart rate 70, respirations 19, O2 96% on room air. General: Awake, alert, oriented x3, ill-appearing obese female. CV: S1, S2. Regular rate and rhythm. Peripheral pulses present. Respiratory: Moving air well bilaterally. No wheezing or stridor. No use of accessory muscles. Gastrointestinal: Abdomen is soft. Tenderness to palpation in the epigastric and left upper quadrant. No rebound or guarding. Positive bowel sounds. Extremities: No clubbing, cyanosis, or edema. Neurologic: Nonfocal. Laboratory Data: Sodium 142, potassium 4.1, chloride 114, CO2 of 22, BUN 8, creatinine 0.75, glucose 172, calcium 7.8. WBC 3, H and H 11.6 and 34.6, platelets 83. Urine culture, 100,000 colony-forming units of 4+ beta-hemolytic Strep group B. Assessment And Plan: 59-year-old female with; 1. Acute abdominal pain, epigastric and upper quadrant. We will check HIDA scan to rule out gallbladder sludge. MRI of the abdomen reviewed. Patient does have splenomegaly. Continue with IV antibiotics, IV fluids. Patient was unable to be weaned off morphine, did not tolerate pain with oral medications. We will resume IV analgesia. 2. Symptomatic with possible acute cholecystitis without obstruction. HIDA scan pending. Appreciate Dr. Domingo's input. Continue IV antibiotics. 3. Liver cirrhosis, newly diagnosed. Workup is pending. Hepatitis panel is pending. Spoke with GI. Patient will need to follow up as an outpatient. No GI on-call. 4. Liver nodules secondary to liver cirrhosis. MRI of the abdomen reviewed with the patient. 5. Asymptomatic bacteriuria. Cultures growing beta-hemolytic Streptococcus, which is likely skin contaminant. 6. Obesity, BMI 34. 7. Leukopenia and thrombocytopenia. Monitor. May be related to her liver disfunction. 8. Deep vein thrombosis prophylaxis addressed. SCDs. No chemical anticoagulation right now due to possible surgical intervention. SA/MODL Voice ID: [id number] Report ID: [id number] MTDDeepak
--- NOTE | 2019-06-30 20:07 | PN ---
Date of Progress Note: 06/30/2019 Subjective: Patient is awake, alert. States that she has nausea after eating and she did well last night, however, this morning and for lunch, she does not feel well after eating. Therefore, her pain however is still on the left side. Objective: Vital Signs: Stable. Afebrile. Abdomen: Reveals minimal tenderness on the left side. No peritonitis and less distended . Assessment: Abdominal pain, etiology unclear at this time. Could be gastroenteritis with ileus and also it could be gallbladder issues. Recommendation: As it possibly could be the gallbladder issue, we will go ahead and order a HIDA sca n for tomorrow morning and will make further recommendation after that and following which if that is normal, she can be discharged to home. Follow up with GI as an outpatient. Should it be positive, obviously she may need her gallbladder removed. ED/QUINTONL Voice ID: [id number] Report ID: [id number]
[2019-06-30] MEDS: MIRTAZAPINE 15 MG TAB PO SCH (21:04)
[2019-07-01] MEDS: NA CHLORIDE 0.9% 1,000 ML IV SCH ×3 (02:36→18:34)
[2019-07-01 05:53] LABS: Basophils % 0.6 % (0-1.3); Hematocrit 36.1 % (36.0-45.0); Lymphocytes % 34.9 % (15.3-44.8); MPV 10.1 fL (7.6-11.3)
[2019-07-01 06:05] LABS: Albumin 3.1 g/dL (3.4-5.0); Bilirubin Total 0.7 mg/dL (0.2-1.0); Potassium 3.8 mmol/L (3.5-5.1); Protein, Total 7.5 g/dL (6.4-8.2)
[2019-07-01] MEDS: INSULIN -REGULAR HUMAN 50 UNIT/0.5 ML ML SQ SCH ×4 (07:30→21:34)
[2019-07-01] MEDS: LORATADINE 10 MG TAB PO SCH (08:05)
[2019-07-01] MEDS: CEFTRIAXONE/SWI 1gm 1 GM/10 ML SYR IVP SCH (08:06)
[2019-07-01] MEDS: ONDANSETRON 4 MG/2 ML VIAL IV PRN (08:12)
[2019-07-01 08:14] LABS: Blood Morphology Comment NOT SEEN (NOT SEEN); Platelet Estimate DECR
--- NOTE | 2019-07-01 08:17 | RAD REPORT ---
EXAM DESCRIPTION: NM - Hepatobiliary System W/ Ph - 07/01/2019 7:58 am CLINICAL HISTORY: abdominal pain COMPARISON: No comparisons TECHNIQUE: The patient was administered 6.6 mCi Tc99m Choletec. Imaging of the right upper quadrant was performed initially for up to 60 minutes. Gallbladder ejection fraction determination was then performed utilizing synthetic 1.7 mgm CCK over a slow 30 minute infusion. FINDINGS: Normal hepatic uptake and excretion with appropriate clearance of background blood pool ac tivity. Normal visualization of biliary and small bowel activity. Gallbladder visualizes within normal time limits. The calculated ejection fraction is 9% (normal grea ter than 35%). Subjective pain reported by the patient: Pre-procedure - none During or subsequent to synthetic CCK infusion - pain 6/10 with bloating. IMPRESSION: Patient cystic duct and patent sphincter of Oddi. No delay in visualization of the gallb ladder, biliary tree, or duodenum. Ejection fraction is 9% (normal greater than 35%). Subjective patient pain assessment as detailed above.
[2019-07-01] MEDS ORDERED: KCL 20 MEQ/100 mL IVPB 20 MEQ/100 ML BAG IV SCH (09:00)
[2019-07-01] MEDS ORDERED: MORPHINE 2 MG/ML SYR IV ONE (09:56)
[2019-07-01] MEDS ORDERED: FUROSEMIDE 20 MG/ 2ML VIAL IV SCH (11:11)
[2019-07-01] MEDS ORDERED: NA CHLORIDE 0.9% 250 ML IV SCH (12:00)
[2019-07-01] MEDS ORDERED: LIDOCAINE 2% MPF 5 ML VIAL ONE (12:32)
[2019-07-01] MEDS ORDERED: dexAMETHasone 10 MG/ML VIAL ONE ×2 (12:32→15:28)
[2019-07-01] MEDS ORDERED: GLYCOPYRROLATE 0.2 MG/ML SYR ONE ×2 (12:32→15:28)
[2019-07-01] MEDS ORDERED: ROCURONIUM 50 MG/5 ML VIAL IV ONE (12:32)
[2019-07-01] MEDS ORDERED: PROPOFOL 200 MG/20 ML VIAL IV ONE (12:32)
[2019-07-01] MEDS ORDERED: MIDAZOLAM HCL 2 MG/2 ML INJ ONE ×2 (12:32→16:26)
[2019-07-01] MEDS ORDERED: FENTANYL CITR 250 MCG/5 ML ONE (12:32)
[2019-07-01] MEDS ORDERED: NA CHLORIDE 0.9% 1,000 ML ONE (12:35)
[2019-07-01] MEDS ORDERED: NA CHLORIDE 0.9% 100 ML IV ONE (12:39)
[2019-07-01] MEDS ORDERED: ONDANSETRON 4 MG/2 ML VIAL ONE (12:39)
[2019-07-01] MEDS ORDERED: CEFOXITIN/SWI 1gm 1 GM/10 ML SYR ONE (14:05)
[2019-07-01] MEDS ORDERED: Phenylephrine HCl 10 MG/ML 1 ML VIAL ONE (14:27)
[2019-07-01] MEDS ORDERED: NEOSTIGMINE 1 MG/ML -10 ML VIAL ONE (15:27)
--- NOTE | 2019-07-01 15:37 | P.OP ---
Wedding Day Coordinator: Kris MIKE Preoperative diagnosis: Acute and Chronic Cholecystitis and Cirrhosis Postoperative diagnosis: same with adhesions Primary procedure: Lap Jennifer, SMILEY, Wedge Bx of Liver Anesthesia: General Estimated blood loss: min Specimen: GB, Liver Findings: as above Complications: None Transferred to: Recovery Room Condition: Good
[2019-07-01] MEDS ORDERED: ONDANSETRON 4 MG/2 ML VIAL IV PRN (15:41)
[2019-07-01] MEDS: HYDROMORPHONE HCL 1 MG/ML INJ ONE ×4 (15:55→16:14)
--- NOTE | 2019-07-01 17:05 | PN ---
Date of Progress Note: 07/01/2019 Subjective: Patient had a HIDA scan this morning, which showed an ejection fraction of 9 with reprod uction of her symptoms with CCK infusion. Objective: Vitals: Stable. Afebrile. Abdomen: Tender in the right upper quadrant now. Laboratory Data: White count is low. Platelets are low. Assessment: Chronic cholecystitis, with acute component cirrhosis. Recommendation: Discussed the case with Dr. Roth. We will give the patient platelets prior to surg annette. We will proceed with lap anne, possible open, and possible liver biopsy. Patient understands all risks, benefits, and alternatives and agrees to procedure. /MODL Voice ID: [id number] Report ID: [id number]
[2019-07-01] MEDS: HYDROCODONE/APAP 7.5/325 MG TAB PO PRN ×2 (17:18→21:42)
[2019-07-01 17:25] LABS: MPV 9.3 fL (7.6-11.3)
--- NOTE | 2019-07-01 17:26 | PN ---
Date of Progress Note: 07/01/2019 Subjective: Patient seen and examined. Chart reviewed and case discussed with RN and Dr. Domingo. Baldomero beverly was unable to have HIDA scan yesterday as she ate despite being n.p.o. HIDA scan today reveals gallbladder sludge and low EF. Patient will be going for surgery this afternoon. Medications: List reviewed. Physical Examination: Vital Signs: Temperature is 97.1, heart rate 72, blood pressure 150/69, respirations 20, O2 97% on r oom air. General: Awake, alert, oriented x3, in some mild distress. Obese, ill-appearing female. CV: S1, S2. Regular rate and rhythm. Peripheral pulses present. Respiratory: Moving air well bilaterally. No wheezing or stridor. Gastrointestinal: Abdomen is soft. Mild tenderness to palpation in the epigastric region. No rebou nd or guarding. Positive bowel sounds. Extremities: No clubbing, cyanosis, or edema. Neurologic: Nonfocal. Laboratory Data: Sodium 142, potassium 3.8, chloride 113, CO2 of 23, BUN 7, creatinine 0.78, glucose 161, calcium is 8.4, AST 41, ALT 31, albumin 3.1. WBC 2.8, H and H 12.3 and 36.1, platelets 69, jonathan trophils 54%. Urine culture growing out 4+ beta-hemolytic strep, likely skin contaminant. Hepatobil iary scan shows patent cystic duct and patent sphincter of Oddi. No delay in visualization of gallbl adder, biliary tree, or duodenum. EF is 9%. Subjective pain. Assessment And Plan: 59-year-old female with; 1.Acute abdominal pain, epigastric and right upper quadrant. HIDA scan is positive. Patient is goi ng for cholecystectomy today. Continue with IV antibiotics and IV fluids and pain medications. 2.Acute cholecystitis, symptomatic without obstruction. Continue IV antibiotics. 3.Liver cirrhosis. Hepatitis panel is pending. No GI on-call. Patient will need GI followup as an outpatient. 4.Liver nodule secondary to liver cirrhosis. MRI of the abdomen shows nodules related to liver cirr hosis. Patient will need biopsy. 5.Asymptomatic bacteriuria. Beta-hemolytic Streptococcus, likely skin contaminant. 6.Obesity, BMI 34. 7.Leukopenia and thrombocytopenia, likely related to her liver disease. 8.Deep venous thrombosis prophylaxis. SCDs. No chemical anticoagulation. Anticipate surgery. SA/KAYKAY Voice ID: [id number] Report ID: [id number]
[2019-07-01] MEDS: HYDROMORPHONE HCL 1 MG/ML INJ IV PRN ×2 (18:58→22:05)
[2019-07-01 20:43] LABS: HBsAG Nonreactive (Nonreactive)
[2019-07-01] MEDS: MIRTAZAPINE 15 MG TAB PO SCH (21:35)
[2019-07-01 22:43] LABS: Platelet Estimate DECR
[2019-07-02] MEDS ORDERED: INSULIN -REGULAR HUMAN 50 UNIT/0.5 ML ML SQ ONE ×2 (00:49→22:35)
[2019-07-02] MEDS: HYDROMORPHONE HCL 1 MG/ML INJ IV PRN ×6 (01:13→21:14)
[2019-07-02] MEDS: NA CHLORIDE 0.9% 1,000 ML IV SCH ×2 (01:16→04:34)
--- NOTE | 2019-07-02 02:26 | OP ---
Date of Procedure: 07/01/2019 Surgeon: Bright Domingo MD Deck Cadet: CEE Noguera. Preoperative Diagnoses: Acute and chronic cholecystitis and cholelithiasis and cirrhosis, adhesions. Postoperative Diagnoses: Acute and chronic cholecystitis and cholelithiasis and cirrhosis, adhesions . Procedure Performed: Laparoscopic cholecystectomy, lysis of adhesions, and wedge biopsy of the liver . Estimated Blood Loss: Minimal. Specimen: Wedge biopsy of liver and gallbladder. Findings: As above. Anesthesia: General. Complications: None. Disposition: The patient tolerated the procedure in stable condition, taken to Recovery in good gene ral condition. Procedure In Detail: The patient was brought to the OR and placed in supine position. General anest hesia was begun. The patient was prepped and draped in usual sterile fashion. Marcaine 0.5% was inf iltrated locally. Then 15 blade was used to make a 1 cm incision in the epigastrium just to the righ t of midline because patient had a large midline incision from previous surgery. Subcutaneous tissue was divided. The fascia was identified and divided. A #1 Vicryl stay suture was placed. Peritonea l cavity was entered with sharp and blunt dissection. A 12 mm trocar was placed into the peritoneal cavity under direct vision. Pneumoperitoneum was established and then there was enough room to place a 5 trocar in the right subcostal region and through that trocar ligature was used to take down all the adhesions on the right side of the abdomen so I could get 2 more trocars placed, which was done. There was no evidence of bowel injury or bleeding noted. Subsequently, 11 mm trocar placed in the r ight paramedian area and then another 5 mm trocar placed in the subcostal region and then laparoscopy revealed chronic inflammation of the gallbladder consistent with chronic cholecystitis and distentio n of the gallbladder. Gallbladder aspirated first and then grasped and retracted superiorly. Infund ibulum was identified and retracted inferolaterally. On the liver, there were obvious signs of cirrh osis and a wedge biopsy of the liver was done at the end of the case. The cystic duct and cystic art annette were clearly identified after the infundibulum was identified and retracted inferolaterally. Cli ps placed. Both structures were divided. Cautery used to remove the gallbladder from the liver bed. Bleeding on the liver bed was controlled with cautery. At the end the case, Surgicel was used to m malika sure that there would be no problems with this after the gallbladder was removed, then it was rem alessia via EndoCatch bag through the epigastric incision. Then a wedge biopsy of a piece of the liver was done with cautery, no bleeding was noted and this was removed and sent to Pathology as well. Rig ht upper quadrant was irrigated. Effluent was clear. There was no evidence of any bleeding or bowel injury appreciated or bile leakage appreciated. Subsequently, Surgicel was placed in the liver bed just for secondary protection if patient has cirrhosis and then all trocars were removed under direct vision. Stay sutures were tied to each other to reapproximate the fascial defect. Subcutaneous wou nds were irrigated. Bleeding was controlled with cautery. A 3-0 chromic used for subcutaneous tissu e and graham were used to close the skin. Sterile dressing was applied. The patient was awakened a nd taken to Recovery in good general condition. /MODL Voice ID: [id number] Report ID: [id number]
[2019-07-02 04:41] LABS: Absolute Lymphocytes (CBC) 0.6 K/uL (0.7-4.9); Basophils % 0.1 % (0-1.3); Hematocrit 35.3 % (36.0-45.0); Lymphocytes % 11.9 % (15.3-44.8); MPV 9.7 fL (7.6-11.3); RBC Red Blood Cell Count 3.98 M/uL (3.86-4.86)
[2019-07-02 04:45] LABS: Potassium 4.6 mmol/L (3.5-5.1)
[2019-07-02] MEDS: HYDROCODONE/APAP 7.5/325 MG TAB PO PRN ×3 (06:27→14:50)
[2019-07-02] MEDS: INSULIN -REGULAR HUMAN 50 UNIT/0.5 ML ML SQ SCH ×4 (08:25→21:38)
[2019-07-02] MEDS: CEFTRIAXONE/SWI 1gm 1 GM/10 ML SYR IVP SCH (08:25)
[2019-07-02] MEDS: LORATADINE 10 MG TAB PO SCH (08:26)
[2019-07-02] MEDS: AMOXICILLIN TRIHYDR 250 MG CAP PO SCH ×2 (13:01→21:15)
[2019-07-02] MEDS: metroNIDAZOLE 500 MG TABLET PO SCH ×2 (14:50→21:14)
--- NOTE | 2019-07-02 15:56 | PN ---
Date of Progress Note: 07/02/2019 Subjective: Patient is awake and alert, complaining of incisional pain. Objective: Vital signs: Stable, afebrile. Abdomen: Benign. Laboratory Data: Reviewed. H and H are stable. Assessment: Status post laparoscopic cholecystectomy, liver biopsy, lysis of adhesion. Recommendation: Keep patient another day for parenteral pain management. Encourage ambulation, angelika ntive spirometry. Patient is clinically stable and slowly improving. /MODL Voice ID: [id number] Report ID: [id number]
--- NOTE | 2019-07-02 17:51 | PN ---
Date of Progress Note: 07/02/2019 Subjective: Patient seen and examined. Chart reviewed and case discussed with RN and Dr. Domingo. Baldomero beverly is doing better, however, still reporting pain at the surgical site. Medications: List reviewed. Physical Examination: Vital Signs: Temperature 97.4, heart rate 59, blood pressure 109/56, respirations 18, O2 95% on room air. General: Awake, alert, oriented x3. Some mild distress due to pain. Obese female. CV: S1, S2. Regular rate and rhythm. Peripheral pulses present. Respiratory: Moving air well bilaterally. No wheezing or stridor. Gastrointestinal: Abdomen is soft, nondistended. Positive bowel sounds. Tenderness to palpation ar ound the incision site; clean, dry, intact. Extremities: No clubbing, cyanosis, or edema. Neurologic: Nonfocal. Laboratory Data: Sodium 138, potassium is 4.6, chloride 108, CO2 of 22, BUN 15, creatinine 1.24, glu cose 296, calcium 8.2. Blood glucose levels uncontrolled, ranging from 416 to 222. WBC 5.1, H and H 11.7 and 35.3, platelets 94, neutrophils 80%. Urine culture growing out Streptococcus agalactiae, s ensitive to penicillin. Assessment: 59-year-old female with; 1.Acute abdominal pain, epigastric and right upper quadrant, status post cholecystectomy and lysis o f adhesions and wedge biopsy of the liver. 2.Acute cholecystitis, symptomatic without obstruction. Continue IV antibiotics, status post cholec ystectomy. Appreciate Dr. Domingo's input. Patient recommended to supplement with fat-soluble vitamin s going forward and to avoid fatty fried foods. 3.Liver cirrhosis. Hepatitis panel is nonreactive, likely due to nonalcoholic fatty liver disease a nd its complications. Biopsy has been taken. Patient will need to follow up with biopsy results wit h GI and PCP. Patient has been set up with GI as outpatient. 4.Liver nodule secondary to liver cirrhosis. MRI reviewed, nonmalignant. Commonly seen with liver cirrhosis. She will need to follow up on biopsy results as well as repeat imaging studies in the nex t 3 to 6 months for stabilization. 5.Acute cystitis without hematuria secondary to Streptococcus agalactiae. We will switch from Rocep hin to amoxicillin. Sensitivities noted. 6.Obesity, BMI 34. 7.Thrombocytopenia likely related to her liver disease. Patient received 2 units of platelets total due to surgery and risk of bleeding as she had liver biopsy. 8.Deep venous thrombosis prophylaxis. Continue SCDs. No chemical anticoagulation due to low platel ets. Encourage ambulation. Plan: Start weaning off IV pain medications. Likely discharge in a.m. Advance diet as tolerated. /KAYKAY Voice ID: [id number] Report ID: [id number]
[2019-07-02] MEDS: MIRTAZAPINE 15 MG TAB PO SCH (21:14)
[2019-07-02] MEDS: CODEINE 30MG/APAP 300MG TAB PO PRN (21:42)
[2019-07-03] MEDS: HYDROMORPHONE HCL 1 MG/ML INJ IV PRN ×3 (00:25→08:07)
[2019-07-03] MEDS: CODEINE 30MG/APAP 300MG TAB PO PRN ×2 (03:50→09:47)
[2019-07-03 06:01] LABS: Absolute Lymphocytes (CBC) 1.2 K/uL (0.7-4.9); Basophils % 0.4 % (0-1.3); Hematocrit 34.7 % (36.0-45.0); Lymphocytes % 22.4 % (15.3-44.8); MPV 9.8 fL (7.6-11.3); RBC Red Blood Cell Count 3.89 M/uL (3.86-4.86)
[2019-07-03] MEDS: AMOXICILLIN TRIHYDR 250 MG CAP PO SCH (08:06)
[2019-07-03] MEDS: LORATADINE 10 MG TAB PO SCH (08:06)
[2019-07-03] MEDS: metroNIDAZOLE 500 MG TABLET PO SCH (08:07)
[2019-07-03] MEDS: INSULIN -REGULAR HUMAN 50 UNIT/0.5 ML ML SQ SCH (08:24)
[2019-07-03 09:21] VITALS: BP 141/76; TEMP 98.6
[2019-07-03 10:44] VITALS: O2SAT 94
--- NOTE | 2019-07-03 17:16 | PN ---
Date of Progress Note: 07/03/2019 Subjective: Patient is awake, alert, tolerating diet. Feels much better. However, still having inc isional pain and pain from the lysis of adhesions. Laboratory Data: Reviewed. Objective: Vital Signs: Stable. She is afebrile. Abdomen: Benign. Assessment: Status post laparoscopic cholecystectomy, liver biopsy. Please note, the liver biopsy r esults showed stage IV cirrhosis and chronic hepatitis stage II. Recommendations: Patient cleared for discharge. Patient is to follow up with Dr. Torrez as an out patient. Follow with me in 1 week. Discharge instructions given. /MODL Voice ID: [id number] Report ID: [id number]
--- NOTE | 2019-07-04 03:27 | DS ---
Date of Discharge: 07/03/2019 Consultants: Dr. Domingo with General Surgery. Procedures: On 07/01/2019, lysis of adhesions and laparoscopic cholecystectomy. Admitting Diagnoses: 1.Abdominal pain. 2.Diabetes mellitus type 2. 3.Obesity. 4.Liver cirrhosis. Discharge Diagnoses: 1.Acute abdominal pain, epigastric and right upper quadrant, resolved. 2.Acute cholecystitis, symptomatic without obstruction, status post laparoscopic cholecystectomy and lysis of adhesions. 3.Liver cirrhosis. 4.Liver nodule secondary to liver cirrhosis. 5.Acute cystitis without hematuria secondary to Streptococcus agalactiae. 6.Obesity, BMI 34. 7.Thrombocytopenia secondary to liver disease. Hospital Course: Patient is a 59-year-old female with past medical history of diabetes, who comes in with abdominal pain. CT scan showed liver cirrhosis, right upper quadrant varices, dilated loop of jejunum close to an area of end-to-end anastomosis and borderline distended gallbladder. Ultrasound was done, which confirmed borderline gallbladder, but normal biliary tree. She had mildly elevated A ST. Bilirubin was normal. Patient denies any history of hepatitis. She most likely has liver cirrh osis developed from nonalcoholic fatty liver disease. Patient did well over the course of the hospit al stay, she had intractable pain. Surgery was consulted for acute cholecystitis. She had no obstru ction. Patient underwent laparoscopic cholecystectomy and lysis of adhesions. Patient tolerated the procedure well. Her HIDA scan had shown EF of 9%, prompting the cholecystectomy. GI was not availa ble. However, MRI of the abdomen was done to further elucidate her liver nodules, these were seconda ry to her liver cirrhosis and are common with liver cirrhosis. Biopsy of the liver was also done, wh ich showed cirrhosis, stage IV, mild steatosis, mild chronic hepatitis grade 2, iron stain negative, no malignancy identified. Patient will be following up with [facility], Dr. Torrez. Her information was f axed over to his office and the patient understands the importance of following up with GI to further diagnose and evaluate her liver and she understands that she may end up requiring transplant or deve lop liver failure due to cirrhosis, which is far advanced at this time. Patient was also found to adair ve UTI secondary to Streptococcus agalactiae. Her antibiotics were adjusted. She will need 10 days of amoxicillin. She also finish up course of Flagyl for her cholecystitis. Her hemoglobin A1c was 1 0.6%, which is elevated. She was counseled regarding better control of her diabetes. She will need to follow up with her PCP to have her medications adjusted and possibly need insulin. Patient was th en doing well, she was able to ambulate, tolerate a diet. She was able to pass gas. She was then cl eared for discharge and was sent home in a stable condition. Activity: As tolerated, no heavy lifting. Diet: Low-sodium, 1500 mL fluid restriction diabetic diet. Followup: Follow up with primary care physician in 2-3 days. Follow up with surgeon, Dr. Domingo in 7 to 10 days for wound check. Follow up with GI, Dr. Torrez in 2 weeks. Return to ER for worsening condition. Wound care instructions per Dr. Domingo. Medications: As per medication reconciliation list. Physical Examination: General: Awake, alert, and oriented x3, obese female. CV: S1, S2, no murmurs. Respiratory: Moving air well bilaterally. No wheezing. Gastrointestinal: Abdomen is soft, nontender, nondistended. Minimal tenderness on the incision site clean, dry, intact. Extremities: No clubbing, cyanosis, edema. Neurologic: Nonfocal. Total time spent discharging the patient was 37 minutes. /KAYKAY Voice ID: [id number] Report ID: [id number]
== END 2019-07-03 12:26 | disposition home or self-care (01) | DRG 418 ==
LOC: ER 07:25 → ERHOLD 13:43 → 4TH 14:04 → OBSVTOIN 06-28 14:37
PROVIDERS: ADMIT Internal Medicine; ATTEND Internal Medicine
PROC: 0FB04ZX Excision of Liver, Percutaneous Endoscopic Approach, Diagnostic (ICD-10-PCS; 2019-07-01)
PROC: 30233N1 Transfusion of Nonautologous Red Blood Cells into Peripheral Vein, Percutaneous Approach (ICD-10-PCS; 2019-07-01)
PROC: 0FT44ZZ Resection of Gallbladder, Percutaneous Endoscopic Approach (ICD-10-PCS; principal; 2019-07-01 13:45)
DX: K80.12 Calculus of gallbladder with acute and chronic cholecystitis without obstruction (principal); N30.00 Acute cystitis without hematuria; K74.60 Unspecified cirrhosis of liver; K73.9 Chronic hepatitis, unspecified; K76.0 Fatty (change of) liver, not elsewhere classified; B95.4 Other streptococcus as the cause of diseases classified elsewhere; E66.9 Obesity, unspecified; Z68.34 Body mass index [BMI] 34.0-34.9, adult; D69.6 Thrombocytopenia, unspecified
CPT/HCPCS: 36415; 36430; 74019; 74177; 74183; 76705; 78227; 80048; 80053; 80076; 81003; 81015; 81025; 82947; 83036; 83605; 83690; 83735; 84100; 85025; 85027; 85049; 86705; 86803; 86900; 86901; 87077; 87086; 87088; 87186; 87340; 88304; 88307; 88313; 94760; 96361; 96374; 96375; 99285; A9537; A9577; G0378; J0696; J1100; J1170; J1940; J2175; J2250; J2270; J2370; J2405; J2704; J2710; J2805; J3010; J3475; J7030; P9035; Q9967

== ENCOUNTER 2019-07-20 18:07 | Emergency (ER) | payer OTHER ==
--- OUTSIDE RECORDS SUMMARY | 2019-07-20 18:12 | XMS REPORT ---
:1960 [facility] Address [address] [place] [address] Dr. [address] [place] [id number] Care Team Providers Name Role Phone RUSS YAÑEZ Unavailable Unavailable FLASH BREEN Unavailable Unavailable Problems This patient has no known problems. Allergies, Adverse Reactions, Alerts This patient has no known allergies or adverse reactions. Medications This patient has no known medications. Results Test Description Test Time Test Comments Text Results Atomic Results Result Comments AFB CULTURE + SMEAR 2017-10-24 04:25:00 Test Item Value Reference Range Comments CULTURE (BEAKER) (test nbdy=1817) No acid-fast bacilli isolated in 42 days AFB SMEAR (BEAKER) (test hjbh=109) No acid fast bacilli seen FUNGUS CULTURE + [id number] 13:36:00 Test Item Value Reference Range Comments CULTURE (BEAKER) (test No fungus isolated in 28 days uotf=2611) FUNGUS SMEAR (BEAKER) (test No fungi seen esks=6518) GA, CHEF BROILER OR FRY IN OR/30 MINUTE [id number] 15:53:00Reason for exam:-> NephrolithiasIs the patient ?->NoWhen was patient's last menstrual cycle?->10/02/INAL REPORT TECHNIQUE: Fluoroscopic images from urologic procedure were submitted for interpretation. INDICATION: 57 -year-old woman with nephrolithiasis. COMPARISON: None. FINDINGS:Single frontal image shows unilateral ureteral stent in place. Fluoroscopy time: 52 secondsNumber of images: 1 IMPRESSION:Fluoroscopic images from urologic procedure as detailed above, not obtainedby the undersigned. Please refer to operative note for more details of the procedure and findings. Signed: Fay Irwin MDReport Verified Date/Time: 10/02/2017 15:53:40 Reading Location: [address] Radiology Reading Room POCT-GLUCOSE [id number] 10:54:00 Test Item Value Reference Range Comments POC-GLUCOSE METER (BEAKER) 145 mg/dL 70-110 TESTED AT [facility] [address] (test slto=3171) [facility] [address] URINE [id number] 10:33:00 Test Item Value Reference Range Comments CULTURE (BEAKER) (test mlnh=2784) Ampicillin (test code=26) Linezolid (test code=40) Nitrofurantoin (test code=23) Tetracycline (test code=2) Vancomycin (test code=13) CULTURE (BEAKER) (test ztqv=4002) 10-19,000 col/mL Enterococcus species <10,000 col/mL Gram Negative rods<10,000 col/mL BETA HEMOLYTIC STREPTOCOCCUSURINALYSIS W/ [id number] 15:50:00 Test Item Value Reference Range Comments COLOR (BEAKER) (test ecif=707) Yellow CLARITY (BEAKER) (test tzxv=880) Clear SPECIFIC GRAVITY UA (BEAKER) (test ehpj=068) 1.020 1.001-1.035 PH UA (BEAKER) (test xozs=765) 5.5 5.0-8.0 PROTEIN UA (BEAKER) (test gwkd=110) 30 mg/dL Negative GLUCOSE UA (BEAKER) (test olwv=588) Negative Negative KETONES UA (BEAKER) (test ezkf=055) Negative Negative BILIRUBIN UA (BEAKER) (test bhmo=196) Negative Negative BLOOD UA (BEAKER) (test rojh=374) Large Negative NITRITE UA (BEAKER) (test cede=683) Negative Negative LEUKOCYTE ESTERASE UA (BEAKER) (test ttdd=453) Negative Negative UROBILINOGEN UA (BEAKER) (test cnnz=220) 0.2 mg/dL 0.2-1.0 RBC UA (BEAKER) (test assw=530) 211 /HPF WBC UA (BEAKER) (test flqz=299) 5 /HPF MUCUS (BEAKER) (test qzos=8038) Rare SQUAMOUS EPITHELIAL (BEAKER) (test tiuh=267) 3 /HPF SOURCE(BEAKER) (test vusy=9293) BASIC METABOLIC [id number] 14:43:00 Test Item Value Reference Range Comments SODIUM (BEAKER) (test 140 meq/L 136-145 lvbn=651) POTASSIUM (BEAKER) (test 4.1 meq/L 3.5-5.1 lnxu=832) CHLORIDE (BEAKER) (test 105 meq/L 98-107 vvod=761) CO2 (BEAKER) (test 27 meq/L 22-29 ynkm=251) BLOOD UREA NITROGEN 14 mg/dL 7-21 (BEAKER) (test lvvi=198) CREATININE (BEAKER) (test 0.80 mg/dL 0.57-1.25 gito=136) GLUCOSE RANDOM (BEAKER) 69 mg/dL 70-105 (test nube=016) CALCIUM (BEAKER) (test 9.5 mg/dL 8.4-10.2 rbdn=660) EGFR (BEAKER) (test 74 mL/min/1.73 sq m ESTIMATED GFR IS NOT kkar=2543) ACCURATE CREATININE CLEARANCE IN PREDICTING GLOMERULAR FILTRATION RATE. ESTIMATED GFR IS NOT APPLICABLE FOR DIALYSIS PATIENTS. [id number] 14:28:00 Test Item Value Reference Range Comments PARTIAL THROMBOPLASTIN TIME (BEAKER) (test 30.8 seconds 22.5-36.0 qvxu=420) PROTHROMBIN TIME/[id number] 14:27:00 Test Item Value Reference Range Comments PROTIME (BEAKER) (test nvnh=565) 15.9 seconds 11.7-14.7 INR (BEAKER) (test wxxz=162) 1.3 <=5.9 RECOMMENDED COUMADIN/WARFARIN INR THERAPY RANGESSTANDARD DOSE: 2.0 - 3.0 Includes: PROPHYLAXIS forvenous thrombosis, systemic embolization; TREATMENT for venous thrombosis and/or pulmonary embolus.HIGH RISK: Target INR is 2.5-3.5 for patients with mechanical heart valves.CBC W/PLT COUNT & AUTO [id number] 14:22:00 Test Item Value Reference Range Comments WHITE BLOOD CELL COUNT (BEAKER) (test zure=453) 5.0 K/ L 3.5-10.5 RED BLOOD CELL COUNT (BEAKER) (test sqmb=969) 4.28 M/ L 3.93-5.22 HEMOGLOBIN (BEAKER) (test trvx=653) 12.1 GM/DL 11.2-15.7 HEMATOCRIT (BEAKER) (test sqkr=121) 38.6 % 34.1-44.9 MEAN CORPUSCULAR VOLUME (BEAKER) (test hjxa=130) 90.2 fL 79.4-94.8 MEAN CORPUSCULAR HEMOGLOBIN (BEAKER) (test 28.3 pg 25.6-32.2 wxta=131) MEAN CORPUSCULAR HEMOGLOBIN CONC (BEAKER) (test 31.3 GM/DL 32.2-35.5 ueae=360) RED CELL DISTRIBUTION WIDTH (BEAKER) (test 14.3 % 11.7-14.4 vhfx=947) PLATELET COUNT (BEAKER) (test zkyd=111) 137 K/CU MM 150-450 MEAN PLATELET VOLUME (BEAKER) (test opin=008) 11.7 fL 9.4-12.3 NUCLEATED RED BLOOD CELLS (BEAKER) (test 0 /100 WBC 0-0 zayu=346) NEUTROPHILS RELATIVE PERCENT (BEAKER) (test 54 % yqun=135) LYMPHOCYTES RELATIVE PERCENT (BEAKER) (test 35 % puuq=310) MONOCYTES RELATIVE PERCENT (BEAKER) (test 9 % mvrf=737) EOSINOPHILS RELATIVE PERCENT (BEAKER) (test 1 % dxlo=550) BASOPHILS RELATIVE PERCENT (BEAKER) (test 1 % xdcf=225) NEUTROPHILS ABSOLUTE COUNT (BEAKER) (test 2.70 K/ L 1.56-6.13 tpvp=658) LYMPHOCYTES ABSOLUTE COUNT (BEAKER) (test 1.74 K/ L 1.18-3.74 xqwc=041) MONOCYTES ABSOLUTE COUNT (BEAKER) (test 0.44 K/ L 0.24-0.36 lwfj=950) EOSINOPHILS ABSOLUTE COUNT (BEAKER) (test 0.05 K/ L 0.04-0.36 igwz=480) BASOPHILS ABSOLUTE COUNT (BEAKER) (test 0.04 K/ L 0.01-0.08 vnby=507) IMMATURE GRANULOCYTES-RELATIVE PERCENT (BEAKER) 0 % 0-1 (test wngj=7045) RAD, CHEST, 2 [id number] 13:40:00Reason for exam:->Pre admissionIs the patient ?->NoFINAL REPORT Chest, PA and lateral. History: Preadmission testing. Nephrolithiasis. Comparison: None available. Discussion: The cardiomediastinal silhouette and pulmonary vasculature are within normal limits. The lungs are clear without evidence of consolidation or effusion.There are no acute osseous abnormalities. The soft tissues are unremarkable. IMPRESSION: No acute cardiopulmonary abnormality. Signed: Jia Adams MDReport Verified Date/Time: 09/26/2017 13:40: 29Reading Location: [address] Radiology Reading Room POCT-GLUCOSE [id number] 10:17:00 Test Item Value Reference Range Comments POC-GLUCOSE METER (BEAKER) 237 mg/dL 70-110 TESTED AT [facility] [address] [facility] (test hgvf=3526) [facility] [address] CBC (HEMOGRAM ONLY)2017-09-14 06:38:00 Test Item Value Reference Range Comments WHITE BLOOD CELL COUNT (BEAKER) (test ysix=156) 4.0 K/ L 3.5-10.5 RED BLOOD CELL COUNT (BEAKER) (test eyvc=064) 3.84 M/ L 3.93-5.22 HEMOGLOBIN (BEAKER) (test rozq=435) 10.9 GM/DL 11.2-15.7 HEMATOCRIT (BEAKER) (test idhl=713) 34.0 % 34.1-44.9 MEAN CORPUSCULAR VOLUME (BEAKER) (test piks=826) 88.5 fL 79.4-94.8 MEAN CORPUSCULAR HEMOGLOBIN (BEAKER) (test 28.4 pg 25.6-32.2 maru=964) MEAN CORPUSCULAR HEMOGLOBIN CONC (BEAKER) (test 32.1 GM/DL 32.2-35.5 mqvm=467) RED CELL DISTRIBUTION WIDTH (BEAKER) (test 14.3 % 11.7-14.4 nver=297) PLATELET COUNT (BEAKER) (test zjgu=028) 112 K/CU MM 150-450 MEAN PLATELET VOLUME (BEAKER) (test pfnd=940) 12.0 fL 9.4-12.3 NUCLEATED RED BLOOD CELLS (BEAKER) (test 0 /100 WBC 0-0 ywtv=873) BASIC METABOLIC [id number] 06:06:00 Test Item Value Reference Range Comments SODIUM (BEAKER) (test 138 meq/L 136-145 nyyb=777) POTASSIUM (BEAKER) (test 3.5 meq/L 3.5-5.1 pvqc=179) CHLORIDE (BEAKER) (test 108 meq/L 98-107 smgw=493) CO2 (BEAKER) (test 22 meq/L 22-29 rffr=667) BLOOD UREA NITROGEN 6 mg/dL 7-21 (BEAKER) (test lymh=868) CREATININE (BEAKER) (test 0.75 mg/dL 0.57-1.25 edid=336) GLUCOSE RANDOM (BEAKER) 147 mg/dL 70-105 (test xeti=602) CALCIUM (BEAKER) (test 8.3 mg/dL 8.4-10.2 oqyh=106) EGFR (BEAKER) (test 80 mL/min/1.73 sq m ESTIMATED GFR IS NOT fumh=9963) ACCURATE CREATININE CLEARANCE IN PREDICTING GLOMERULAR FILTRATION RATE. ESTIMATED GFR IS NOT APPLICABLE FOR DIALYSIS PATIENTS. POCT-GLUCOSE [id number] 21:17:00 Test Item Value Reference Range Comments POC-GLUCOSE METER (BEAKER) 169 mg/dL 70-110 TESTED AT [facility] [address] [facility] (test znmi=3337) [facility] [address] POCT-GLUCOSE [id number] 18:12:00 Test Item Value Reference Range Comments POC-GLUCOSE METER (BEAKER) 135 mg/dL 70-110 TESTED AT [place] [id number] [facility] (test kkxm=2693) [facility] [address] U/S, ABDOMINAL, [id number] 17:48:00Reason for exam:->evaluate for splenomegaly in patient with TCPFINAL REPORT Abdominal Ultrasound Clinical Diagnosis: Evaluate for splenomegaly Comparison: No comparison at this institution Technique: Multiple transaxial and longitudinal images were obtained through the abdomen with real time ultrasonography. Five MHz transducer was utilized. 87 images were submitted for interpretation. Report:Liver: The liver measures 15.2 cm in the right midaxillary line. There are no focal masses. The echogenicity is heterogeneous.Spleen: The spleen measures 13.1 cm. in the left mid axillary line. Gallbladder: The transverse diameter is 4.2 cm. The wall measures two mm. There are no shadowing stones visualized. Biliary tree: There is no evidence of intra or extra hepatic biliary ductal dilatation. The common bile duct measures four mm.Portal vein: The portal vein measures 12 mm. Pancreas: The pancreatic tail is not well seen secondary to overlying bowel gas. Ascites: NegativePleural Effusion: NegativeRight kidney: The right kidney measures 12.0 cm. in length without evidence of hydronephrosis. A nonobstructing echogenic focus is visualized in the lower pole measuring 0.9 x 0.8 x 1.1 cm. The cortex measures 1.3 cm.Left kidney: The left kidney measures 11.3 cm. in length without evidence of hydronephrosis. The cortex measures 1.3 cm.IVC/Aorta: Partially seen segments demonstrate no abnormality. Maximum transverse dimensionof aorta proximally is 2.0 cm. Impression:Mild hepatosplenomegaly.Possible lower pole nonobstructingleft renal stone. Signed: Suzi Black MDReport Verified Date/ Time: 09/13/2017 17:48:27 Reading Location: [address] Ultrasound Reading Room PERIPHERAL BLOOD SMEAR - PATHOLOGIST [id number] 14:08:00 Test Item Value Reference Range Comments PERIPHERAL SMR REVIEW Mild thrombocytopenia with (BEAKER) (test yciq=5531) occasional large forms. No increase in schistocytes. No blasts detected. [id number] Penny Malone MD (electronic (BEAKER) (test rsae=2838) signature) POCT-GLUCOSE [id number] 13:49:00 Test Item Value Reference Range Comments POC-GLUCOSE METER (BEAKER) 105 mg/dL 70-110 TESTED AT [address] (test ksic=0609) [facility] [address] BLOOD [id number] 10:01:00 Test Item Value Reference Range Comments CULTURE (BEAKER) (test txdh=1419) No growth in 5 days POCT-GLUCOSE [id number] 08:46:00 Test Item Value Reference Range Comments POC-GLUCOSE METER (BEAKER) 116 mg/dL 70-110 TESTED AT [facility] [address] [place] [address] (test vojm=0040) [facility] [address] CBC W/PLT COUNT & AUTO [id number] 07:54:00 Test Item Value Reference Range Comments WHITE BLOOD CELL COUNT (BEAKER) (test xckt=604) 4.7 K/ L 3.5-10.5 RED BLOOD CELL COUNT (BEAKER) (test lora=582) 3.66 M/ L 3.93-5.22 HEMOGLOBIN (BEAKER) (test pciu=752) 10.2 GM/DL 11.2-15.7 HEMATOCRIT (BEAKER) (test vjwg=332) 32.3 % 34.1-44.9 MEAN CORPUSCULAR VOLUME (BEAKER) (test xkuw=939) 88.3 fL 79.4-94.8 MEAN CORPUSCULAR HEMOGLOBIN (BEAKER) (test 27.9 pg 25.6-32.2 lvjp=398) MEAN CORPUSCULAR HEMOGLOBIN CONC (BEAKER) (test 31.6 GM/DL 32.2-35.5 tway=695) RED CELL DISTRIBUTION WIDTH (BEAKER) (test 14.3 % 11.7-14.4 ztlp=534) PLATELET COUNT (BEAKER) (test mzbn=786) 100 K/CU MM 150-450 MEAN PLATELET VOLUME (BEAKER) (test snpp=347) 11.4 fL 9.4-12.3 NUCLEATED RED BLOOD CELLS (BEAKER) (test 0 /100 WBC 0-0 nhsa=136) NEUTROPHILS RELATIVE PERCENT (BEAKER) (test 58 % pqpb=922) LYMPHOCYTES RELATIVE PERCENT (BEAKER) (test 31 % dqwf=268) MONOCYTES RELATIVE PERCENT (BEAKER) (test 9 % dtoe=830) EOSINOPHILS RELATIVE PERCENT (BEAKER) (test 1 % gzmy=735) BASOPHILS RELATIVE PERCENT (BEAKER) (test 0 % wmzb=125) NEUTROPHILS ABSOLUTE COUNT (BEAKER) (test 2.69 K/ L 1.56-6.13 qepe=032) LYMPHOCYTES ABSOLUTE COUNT (BEAKER) (test 1.45 K/ L 1.18-3.74 wmhh=314) MONOCYTES ABSOLUTE COUNT (BEAKER) (test 0.41 K/ L 0.24-0.36 dagq=636) EOSINOPHILS ABSOLUTE COUNT (BEAKER) (test 0.06 K/ L 0.04-0.36 zbub=999) BASOPHILS ABSOLUTE COUNT (BEAKER) (test 0.02 K/ L 0.01-0.08 tgeg=966) IMMATURE GRANULOCYTES-RELATIVE PERCENT (BEAKER) 1 % 0-1 (test bcco=9106) (MANUAL DIFFERENTIAL)2017-09-13 07:54:00 Test Item Value Reference Range Comments TOTAL COUNTED (BEAKER) (test yfwy=2732) PLT MORPHOLOGY (BEAKER) (test keqf=620) Normal RBC MORPHOLOGY (BEAKER) (test jvuf=487) Normal ATYPICAL LYMPHS(BEAKER) (test gfrt=4819) Present VITAMIN B12 AND [id number] 07:24:00 Test Item Value Reference Range Comments VITAMIN B12 (BEAKER) (test vees=724) 362 pg/mL 213-816 FOLATE (BEAKER) (test xqsx=690) 14.2 ng/mL >=7.0 RETICULOCYTE [id number] 06:40:00 Test Item Value Reference Range Comments RETICULOCYTE COUNT PCT (BEAKER) (test nuwf=026) 1.9 % 0.5-1.7 LACTATE DEHYDROGENASE (LDH)2017-09-13 06:27:00 Test Item Value Reference Range Comments LACTATE DEHYDROGENASE (BEAKER) (test qoml=568) 201 U/L 125-220 COMPREHENSIVE METABOLIC [id number] 06:27:00 Test Item Value Reference Range Comments TOTAL PROTEIN (BEAKER) 6.3 gm/dL 6.0-8.3 (test vrmo=562) ALBUMIN (BEAKER) (test 2.8 g/dL 3.5-5.0 qmki=6902) ALKALINE PHOSPHATASE 77 U/L 40-150 (BEAKER) (test bmse=839) BILIRUBIN TOTAL (BEAKER) 0.6 mg/dL 0.2-1.2 (test aafu=617) SODIUM (BEAKER) (test 141 meq/L 136-145 frru=259) POTASSIUM (BEAKER) (test 3.5 meq/L 3.5-5.1 vmqo=975) CHLORIDE (BEAKER) (test 110 meq/L 98-107 trpo=986) CO2 (BEAKER) (test 24 meq/L 22-29 teay=658) BLOOD UREA NITROGEN 6 mg/dL 7-21 (BEAKER) (test rjqq=216) CREATININE (BEAKER) (test 0.78 mg/dL 0.57-1.25 jovp=336) GLUCOSE RANDOM (BEAKER) 121 mg/dL 70-105 (test eixx=056) CALCIUM (BEAKER) (test 8.0 mg/dL 8.4-10.2 mdcf=692) AST (SGOT) (BEAKER) (test 20 U/L 5-34 awrt=732) ALT (SGPT) (BEAKER) (test 14 U/L 6-55 mpye=109) EGFR (BEAKER) (test 77 mL/min/1.73 sq m ESTIMATED GFR IS NOT gxiu=5236) ACCURATE CREATININE CLEARANCE IN PREDICTING GLOMERULAR FILTRATION RATE. ESTIMATED GFR IS NOT APPLICABLE FOR DIALYSIS PATIENTS. HEPATITIS C [id number] 06:23:00 Test Item Value Reference Range Comments HEPATITIS C ANTIBODY (BEAKER) (test lubq=384) Nonreactive Nonreactive HIV-1 ANTIGEN WITH HIV-1/2 [id number] 06:23:00 Test Item Value Reference Range Comments HIV-1 ANTIGEN WITH HIV 1\T\2 ANTIBODY (2) Nonreactive Nonreactive (BEAKER) (test wbch=5221) [id number] 06:02:00 Test Item Value Reference Range Comments HAPTOGLOBIN (BEAKER) (test cdzy=568) 196 mg/dL 14-258 BLOOD [id number] 23:00:00 Test Item Value Reference Range Comments CULTURE (BEAKER) (test wtpu=6206) No growth in 5 days POCT-GLUCOSE [id number] 21:51:00 Test Item Value Reference Range Comments POC-GLUCOSE METER (BEAKER) 225 mg/dL 70-110 TESTED AT [address] (test pvnv=2669) [facility] [address] POCT-GLUCOSE [id number] 17:29:00 Test Item Value Reference Range Comments POC-GLUCOSE METER (BEAKER) 132 mg/dL 70-110 TESTED AT [address] (test juxi=0816) [facility] [address] CBC W/PLT COUNT & AUTO [id number] 15:28:00 Test Item Value Reference Range Comments WHITE BLOOD CELL COUNT (BEAKER) (test gkhb=224) 4.1 K/ L 3.5-10.5 RED BLOOD CELL COUNT (BEAKER) (test vvxp=672) 3.71 M/ L 3.93-5.22 HEMOGLOBIN (BEAKER) (test vaxi=782) 10.4 GM/DL 11.2-15.7 HEMATOCRIT (BEAKER) (test yucs=031) 32.4 % 34.1-44.9 MEAN CORPUSCULAR VOLUME (BEAKER) (test ctrz=795) 87.3 fL 79.4-94.8 MEAN CORPUSCULAR HEMOGLOBIN (BEAKER) (test 28.0 pg 25.6-32.2 crfr=272) MEAN CORPUSCULAR HEMOGLOBIN CONC (BEAKER) (test 32.1 GM/DL 32.2-35.5 gptj=865) RED CELL DISTRIBUTION WIDTH (BEAKER) (test 14.1 % 11.7-14.4 erjs=215) PLATELET COUNT (BEAKER) (test skii=572) 80 K/CU MM 150-450 MEAN PLATELET VOLUME (BEAKER) (test axcv=863) 11.6 fL 9.4-12.3 NUCLEATED RED BLOOD CELLS (BEAKER) (test 0 /100 WBC 0-0 ctli=812) NEUTROPHILS RELATIVE PERCENT (BEAKER) (test 59 % bvbb=011) LYMPHOCYTES RELATIVE PERCENT (BEAKER) (test 30 % apwy=987) MONOCYTES RELATIVE PERCENT (BEAKER) (test 9 % zrvg=786) EOSINOPHILS RELATIVE PERCENT (BEAKER) (test 1 % wjen=405) BASOPHILS RELATIVE PERCENT (BEAKER) (test 1 % vsmy=697) NEUTROPHILS ABSOLUTE COUNT (BEAKER) (test 2.40 K/ L 1.56-6.13 bahm=422) LYMPHOCYTES ABSOLUTE COUNT (BEAKER) (test 1.21 K/ L 1.18-3.74 rkxu=589) MONOCYTES ABSOLUTE COUNT (BEAKER) (test lnow=887) 0.37 K/ L 0.24-0.36 EOSINOPHILS ABSOLUTE COUNT (BEAKER) (test 0.05 K/ L 0.04-0.36 babq=065) BASOPHILS ABSOLUTE COUNT (BEAKER) (test yubs=499) 0.02 K/ L 0.01-0.08 IMMATURE GRANULOCYTES-RELATIVE PERCENT (BEAKER) 1 % 0-1 (test jvqj=3909) (MANUAL DIFFERENTIAL)2017-09-12 15:28:00 Test Item Value Reference Range Comments TOTAL COUNTED (BEAKER) (test gquh=5331) WBC MORPHOLOGY (BEAKER) (test uigf=009) Normal PLT MORPHOLOGY (BEAKER) (test acyt=794) Normal RBC MORPHOLOGY (BEAKER) (test tbug=197) Normal POCT-GLUCOSE [id number] 12:35:00 Test Item Value Reference Range Comments POC-GLUCOSE METER (BEAKER) 154 mg/dL 70-110 TESTED AT [address] (test esnh=8280) [place] [id number] POCT-GLUCOSE [id number] 09:43:00 Test Item Value Reference Range Comments POC-GLUCOSE METER (BEAKER) 108 mg/dL 70-110 TESTED AT [address] (test ukdl=4084) [place] [address] BASIC METABOLIC [id number] 05:11:00 Test Item Value Reference Range Comments SODIUM (BEAKER) (test 140 meq/L 136-145 yato=513) POTASSIUM (BEAKER) (test 3.2 meq/L 3.5-5.1 whri=804) CHLORIDE (BEAKER) (test 108 meq/L 98-107 btan=034) CO2 (BEAKER) (test 19 meq/L 22-29 selg=329) BLOOD UREA NITROGEN 6 mg/dL 7-21 (BEAKER) (test kqll=108) CREATININE (BEAKER) (test 0.71 mg/dL 0.57-1.25 dnpu=406) GLUCOSE RANDOM (BEAKER) 98 mg/dL 70-105 (test bhjg=754) CALCIUM (BEAKER) (test 8.0 mg/dL 8.4-10.2 qgcm=502) EGFR (BEAKER) (test 85 mL/min/1.73 sq m ESTIMATED GFR IS NOT nhyd=0054) ACCURATE CREATININE CLEARANCE IN PREDICTING GLOMERULAR FILTRATION RATE. ESTIMATED GFR IS NOT APPLICABLE FOR DIALYSIS PATIENTS. POCT-GLUCOSE [id number] 22:14:00 Test Item Value Reference Range Comments POC-GLUCOSE METER (BEAKER) 112 mg/dL 70-110 TESTED AT [address] (test wmsz=2546) [place] [id number] POCT-GLUCOSE [id number] 18:30:00 Test Item Value Reference Range Comments POC-GLUCOSE METER (BEAKER) 98 mg/dL 70-110 TESTED AT [address] (test olbd=2543) [place] [address] CBC W/PLT COUNT & AUTO [id number] 14:59:00 Test Item Value Reference Range Comments WHITE BLOOD CELL COUNT (BEAKER) (test obss=792) 3.4 K/ L 3.5-10.5 RED BLOOD CELL COUNT (BEAKER) (test txbo=345) 3.68 M/ L 3.93-5.22 HEMOGLOBIN (BEAKER) (test egcs=450) 10.3 GM/DL 11.2-15.7 HEMATOCRIT (BEAKER) (test udye=446) 33.1 % 34.1-44.9 MEAN CORPUSCULAR VOLUME (BEAKER) (test sqzm=622) 89.9 fL 79.4-94.8 MEAN CORPUSCULAR HEMOGLOBIN (BEAKER) (test 28.0 pg 25.6-32.2 ihvs=173) MEAN CORPUSCULAR HEMOGLOBIN CONC (BEAKER) (test 31.1 GM/DL 32.2-35.5 dtjz=529) RED CELL DISTRIBUTION WIDTH (BEAKER) (test 14.1 % 11.7-14.4 ydxu=870) PLATELET COUNT (BEAKER) (test bswh=400) 79 K/CU MM 150-450 MEAN PLATELET VOLUME (BEAKER) (test xmrg=455) 11.4 fL 9.4-12.3 NUCLEATED RED BLOOD CELLS (BEAKER) (test 0 /100 WBC 0-0 vtlq=119) NEUTROPHILS RELATIVE PERCENT (BEAKER) (test 52 % ewrj=431) LYMPHOCYTES RELATIVE PERCENT (BEAKER) (test 35 % iuta=081) MONOCYTES RELATIVE PERCENT (BEAKER) (test 10 % xtjm=671) EOSINOPHILS RELATIVE PERCENT (BEAKER) (test 2 % izkt=192) BASOPHILS RELATIVE PERCENT (BEAKER) (test 1 % xwkn=627) NEUTROPHILS ABSOLUTE COUNT (BEAKER) (test 1.75 K/ L 1.56-6.13 hqqn=019) LYMPHOCYTES ABSOLUTE COUNT (BEAKER) (test 1.17 K/ L 1.18-3.74 uajo=831) MONOCYTES ABSOLUTE COUNT (BEAKER) (test ejat=711) 0.35 K/ L 0.24-0.36 EOSINOPHILS ABSOLUTE COUNT (BEAKER) (test 0.07 K/ L 0.04-0.36 djme=778) BASOPHILS ABSOLUTE COUNT (BEAKER) (test aoor=785) 0.02 K/ L 0.01-0.08 IMMATURE GRANULOCYTES-RELATIVE PERCENT (BEAKER) 1 % 0-1 (test ooso=1530) (MANUAL DIFFERENTIAL)2017-09-11 14:59:00 Test Item Value Reference Range Comments TOTAL COUNTED (BEAKER) (test ceqm=1566) POCT-GLUCOSE [id number] 13:51:00 Test Item Value Reference Range Comments POC-GLUCOSE METER (BEAKER) 101 mg/dL 70-110 TESTED AT [address] (test gyhf=6814) [place] [address] POCT-GLUCOSE [id number] 08:29:00 Test Item Value Reference Range Comments POC-GLUCOSE METER (BEAKER) 129 mg/dL 70-110 TESTED AT [address] (test uihk=6782) [place] [address] VANCOMYCIN LEVEL, [id number] 05:47:00 Test Item Value Reference Range Comments VANCOMYCIN TROUGH (BEAKER) (test ndkp=410) 11.1 ug/mL 10.0-20.0 Please draw 30 minutes prior to vancomycin due time. Do not administer if vancomycin trough is >20 mcg/mL. Thank you!BASIC METABOLIC [id number] 05 :37:00 Test Item Value Reference Range Comments SODIUM (BEAKER) (test 141 meq/L 136-145 tpnj=887) POTASSIUM (BEAKER) (test 4.1 meq/L 3.5-5.1 jbyr=044) CHLORIDE (BEAKER) (test 112 meq/L 98-107 vsbs=244) CO2 (BEAKER) (test 21 meq/L 22-29 yxes=582) BLOOD UREA NITROGEN 7 mg/dL 7-21 (BEAKER) (test swyl=469) CREATININE (BEAKER) (test 0.76 mg/dL 0.57-1.25 hxwo=323) GLUCOSE RANDOM (BEAKER) 125 mg/dL 70-105 (test guhi=342) CALCIUM (BEAKER) (test 8.2 mg/dL 8.4-10.2 xmty=026) EGFR (BEAKER) (test 79 mL/min/1.73 sq m ESTIMATED GFR IS NOT aigp=7522) ACCURATE CREATININE CLEARANCE IN PREDICTING GLOMERULAR FILTRATION RATE. ESTIMATED GFR IS NOT APPLICABLE FOR DIALYSIS PATIENTS. POCT-GLUCOSE [id number] 21:36:00 Test Item Value Reference Range Comments POC-GLUCOSE METER (BEAKER) 145 mg/dL 70-110 TESTED AT [place] [id number] [facility] (test tnxe=1743) [place] [address] POCT-GLUCOSE [id number] 17:44:00 Test Item Value Reference Range Comments POC-GLUCOSE METER (BEAKER) 178 mg/dL 70-110 TESTED AT [address] (test gisy=4590) [place] [address] POCT-GLUCOSE [id number] 13:00:00 Test Item Value Reference Range Comments POC-GLUCOSE METER (BEAKER) 162 mg/dL 70-110 TESTED AT [address] (test gdvc=8790) [place] [address] URINE [id number] 12:41:00 Test Item Value Reference Range Comments CULTURE (BEAKER) (test nnva=5726) Amikacin (test code=1) Ampicillin + Sulbactam (test code=6) Aztreonam (test code=32) Cefepime (test code=51) Cefoxitin (test code=68) Ceftazidime (test code=27) Ceftriaxone (test code=52) Ertapenem (test code=38) Gentamicin (test code=18) Levofloxacin (test code=22) Meropenem (test code=34) Nitrofurantoin (test code=23) Piperacillin + Tazobactam (test code=29) Tetracycline (test code=2) Tobramycin (test code=25) Trimethoprim + Sulfamethoxazole (test code=47) CULTURE (BEAKER) (test snbf=2773) <10,000 col/mL Escherichia coli POCT-GLUCOSE [id number] 11:08:00 Test Item Value Reference Range Comments POC-GLUCOSE METER (BEAKER) 236 mg/dL 70-110 TESTED AT [address] (test pljw=1065) [place] [address] BASIC METABOLIC [id number] 05:55:00 Test Item Value Reference Range Comments SODIUM (BEAKER) (test 139 meq/L 136-145 gvdw=430) POTASSIUM (BEAKER) (test 3.6 meq/L 3.5-5.1 yazn=423) CHLORIDE (BEAKER) (test 111 meq/L 98-107 hztv=965) CO2 (BEAKER) (test 20 meq/L 22-29 tvod=494) BLOOD UREA NITROGEN 8 mg/dL 7-21 (BEAKER) (test zekg=740) CREATININE (BEAKER) (test 0.74 mg/dL 0.57-1.25 nghg=182) GLUCOSE RANDOM (BEAKER) 114 mg/dL 70-105 (test bwyb=817) CALCIUM (BEAKER) (test 7.9 mg/dL 8.4-10.2 vgsv=033) EGFR (BEAKER) (test 81 mL/min/1.73 sq m ESTIMATED GFR IS NOT gotb=2796) ACCURATE CREATININE CLEARANCE IN PREDICTING GLOMERULAR FILTRATION RATE. ESTIMATED GFR IS NOT APPLICABLE FOR DIALYSIS PATIENTS. CBC W/PLT COUNT & AUTO [id number] 05:04:00 Test Item Value Reference Range Comments WHITE BLOOD CELL COUNT (BEAKER) (test ojqm=228) 3.3 K/ L 3.5-10.5 RED BLOOD CELL COUNT (BEAKER) (test nblw=618) 3.60 M/ L 3.93-5.22 HEMOGLOBIN (BEAKER) (test qhen=025) 10.2 GM/DL 11.2-15.7 HEMATOCRIT (BEAKER) (test kboe=118) 32.3 % 34.1-44.9 MEAN CORPUSCULAR VOLUME (BEAKER) (test gfum=838) 89.7 fL 79.4-94.8 MEAN CORPUSCULAR HEMOGLOBIN (BEAKER) (test 28.3 pg 25.6-32.2 aron=994) MEAN CORPUSCULAR HEMOGLOBIN CONC (BEAKER) (test 31.6 GM/DL 32.2-35.5 rjwl=640) RED CELL DISTRIBUTION WIDTH (BEAKER) (test 14.1 % 11.7-14.4 ppcs=393) PLATELET COUNT (BEAKER) (test jvmw=443) 58 K/CU MM 150-450 MEAN PLATELET VOLUME (BEAKER) (test cbzr=179) 11.5 fL 9.4-12.3 NUCLEATED RED BLOOD CELLS (BEAKER) (test 0 /100 WBC 0-0 ddyz=873) NEUTROPHILS RELATIVE PERCENT (BEAKER) (test 61 % hbdx=262) LYMPHOCYTES RELATIVE PERCENT (BEAKER) (test 26 % utzy=293) MONOCYTES RELATIVE PERCENT (BEAKER) (test 11 % edyr=015) EOSINOPHILS RELATIVE PERCENT (BEAKER) (test 1 % wats=952) BASOPHILS RELATIVE PERCENT (BEAKER) (test 1 % unvf=319) NEUTROPHILS ABSOLUTE COUNT (BEAKER) (test 2.03 K/ L 1.56-6.13 zndb=420) LYMPHOCYTES ABSOLUTE COUNT (BEAKER) (test 0.86 K/ L 1.18-3.74 hvjj=625) MONOCYTES ABSOLUTE COUNT (BEAKER) (test ozux=981) 0.35 K/ L 0.24-0.36 EOSINOPHILS ABSOLUTE COUNT (BEAKER) (test 0.04 K/ L 0.04-0.36 minx=724) BASOPHILS ABSOLUTE COUNT (BEAKER) (test zioy=071) 0.02 K/ L 0.01-0.08 IMMATURE GRANULOCYTES-RELATIVE PERCENT (BEAKER) 1 % 0-1 (test wius=5264) SPIN/CONCENTRATION [id number] 03:55:00 Test Item Value Reference Range Comments CONCENTRATION CHARGED (BEAKER) (test lyst=2616) Done POCT-GLUCOSE [id number] 21:28:00 Test Item Value Reference Range Comments POC-GLUCOSE METER (BEAKER) 166 mg/dL 70-110 TESTED AT [address] (test yaqz=5731) [place] [id number] POCT-GLUCOSE [id number] 17:58:00 Test Item Value Reference Range Comments POC-GLUCOSE METER (BEAKER) 108 mg/dL 70-110 TESTED AT [address] (test zoav=0425) [facility] [address] CBC W/PLT COUNT & AUTO [id number] 13:59:00 Test Item Value Reference Range Comments WHITE BLOOD CELL COUNT (BEAKER) (test rwiw=008) 4.8 K/ L 3.5-10.5 RED BLOOD CELL COUNT (BEAKER) (test txpr=607) 3.90 M/ L 3.93-5.22 HEMOGLOBIN (BEAKER) (test gurd=924) 10.9 GM/DL 11.2-15.7 HEMATOCRIT (BEAKER) (test eisf=982) 34.9 % 34.1-44.9 MEAN CORPUSCULAR VOLUME (BEAKER) (test svmq=536) 89.5 fL 79.4-94.8 MEAN CORPUSCULAR HEMOGLOBIN (BEAKER) (test 27.9 pg 25.6-32.2 kfzu=473) MEAN CORPUSCULAR HEMOGLOBIN CONC (BEAKER) (test 31.2 GM/DL 32.2-35.5 xzzh=877) RED CELL DISTRIBUTION WIDTH (BEAKER) (test 14.3 % 11.7-14.4 demx=565) PLATELET COUNT (BEAKER) (test cbvn=176) 61 K/CU MM 150-450 MEAN PLATELET VOLUME (BEAKER) (test lhff=144) 11.5 fL 9.4-12.3 NUCLEATED RED BLOOD CELLS (BEAKER) (test 0 /100 WBC 0-0 xxvf=474) NEUTROPHILS RELATIVE PERCENT (BEAKER) (test 77 % licu=083) LYMPHOCYTES RELATIVE PERCENT (BEAKER) (test 15 % fihv=238) MONOCYTES RELATIVE PERCENT (BEAKER) (test 7 % nupk=442) EOSINOPHILS RELATIVE PERCENT (BEAKER) (test 1 % qpvx=568) BASOPHILS RELATIVE PERCENT (BEAKER) (test 0 % wtli=240) NEUTROPHILS ABSOLUTE COUNT (BEAKER) (test 3.69 K/ L 1.56-6.13 whsk=025) LYMPHOCYTES ABSOLUTE COUNT (BEAKER) (test 0.70 K/ L 1.18-3.74 lkqg=033) MONOCYTES ABSOLUTE COUNT (BEAKER) (test csgz=432) 0.33 K/ L 0.24-0.36 EOSINOPHILS ABSOLUTE COUNT (BEAKER) (test 0.03 K/ L 0.04-0.36 qjyv=426) BASOPHILS ABSOLUTE COUNT (BEAKER) (test qurl=794) 0.02 K/ L 0.01-0.08 IMMATURE GRANULOCYTES-RELATIVE PERCENT (BEAKER) 0 % 0-1 (test gcfj=6480) URINE [id number] 13:12:00 Test Item Value Reference Range Comments CULTURE (BEAKER) (test wfzb=0194) See comment <10,000 col/mL YeastPOCT-GLUCOSE [id number] 12:57:00 Test Item Value Reference Range Comments POC-GLUCOSE METER (BEAKER) 195 mg/dL 70-110 TESTED AT [facility] [address] [facility] (test obmz=5270) [facility] [address] BASIC METABOLIC [id number] 10:46:00 Test Item Value Reference Range Comments SODIUM (BEAKER) (test 138 meq/L 136-145 hxeb=238) POTASSIUM (BEAKER) (test 3.4 meq/L 3.5-5.1 rfkn=630) CHLORIDE (BEAKER) (test 109 meq/L 98-107 fdpq=136) CO2 (BEAKER) (test 23 meq/L 22-29 qmaz=388) BLOOD UREA NITROGEN 10 mg/dL 7-21 (BEAKER) (test xwcs=704) CREATININE (BEAKER) (test 0.79 mg/dL 0.57-1.25 cgqz=955) GLUCOSE RANDOM (BEAKER) 112 mg/dL 70-105 (test bzuv=431) CALCIUM (BEAKER) (test 7.9 mg/dL 8.4-10.2 xtrp=535) EGFR (BEAKER) (test 76 mL/min/1.73 sq m ESTIMATED GFR IS NOT xoye=4681) ACCURATE CREATININE CLEARANCE IN PREDICTING GLOMERULAR FILTRATION RATE. ESTIMATED GFR IS NOT APPLICABLE FOR DIALYSIS PATIENTS. POCT-GLUCOSE [id number] 08:09:00 Test Item Value Reference Range Comments POC-GLUCOSE METER (BEAKER) 122 mg/dL 70-110 TESTED AT [address] (test alkn=9606) [facility] [address] POCT-GLUCOSE [id number] 06:40:00 Test Item Value Reference Range Comments POC-GLUCOSE METER (BEAKER) 113 mg/dL 70-110 TESTED AT [address] (test mnes=9567) [facility] [address] POCT-GLUCOSE [id number] 22:09:00 Test Item Value Reference Range Comments POC-GLUCOSE METER (BEAKER) 160 mg/dL 70-110 TESTED AT [address] (test uxlv=8716) [facility] [address] VANCOMYCIN LEVEL, [id number] 20:32:00 Test Item Value Reference Range Comments VANCOMYCIN TROUGH (BEAKER) (test vitw=142) 4.4 ug/mL 10.0-20.0 POCT-GLUCOSE [id number] 16:55:00 Test Item Value Reference Range Comments POC-GLUCOSE METER (BEAKER) 231 mg/dL 70-110 TESTED AT [address] (test udfp=9897) [facility] [address] POCT-GLUCOSE [id number] 12:09:00 Test Item Value Reference Range Comments POC-GLUCOSE METER (BEAKER) 251 mg/dL 70-110 TESTED AT [address] (test jdsp=2648) [facility] [address] POCT-GLUCOSE [id number] 09:09:00 Test Item Value Reference Range Comments POC-GLUCOSE METER (BEAKER) 256 mg/dL 70-110 TESTED AT [facility] [address] [facility] (test idfa=0043) [facility] [address] BASIC METABOLIC [id number] 04:41:00 Test Item Value Reference Range Comments SODIUM (BEAKER) (test 136 meq/L 136-145 jgrn=943) POTASSIUM (BEAKER) (test 3.7 meq/L 3.5-5.1 yoyq=455) CHLORIDE (BEAKER) (test 108 meq/L 98-107 vsze=922) CO2 (BEAKER) (test 19 meq/L 22-29 fazy=380) BLOOD UREA NITROGEN 17 mg/dL 7-21 (BEAKER) (test tjmh=523) CREATININE (BEAKER) (test 0.97 mg/dL 0.57-1.25 qlvc=607) GLUCOSE RANDOM (BEAKER) 244 mg/dL 70-105 (test vtvf=069) CALCIUM (BEAKER) (test 7.7 mg/dL 8.4-10.2 gdit=320) EGFR (BEAKER) (test 60 mL/min/1.73 sq m ESTIMATED GFR IS NOT mpcu=1467) ACCURATE CREATININE CLEARANCE IN PREDICTING GLOMERULAR FILTRATION RATE. ESTIMATED GFR IS NOT APPLICABLE FOR DIALYSIS PATIENTS. URINALYSIS W/ [id number] 04:25:00 Test Item Value Reference Range Comments COLOR (BEAKER) (test xusm=379) Yellow CLARITY (BEAKER) (test iwmj=075) Hazy SPECIFIC GRAVITY UA (BEAKER) (test ajrp=297) 1.014 1.001-1.035 PH UA (BEAKER) (test mkgp=290) 6.0 5.0-8.0 PROTEIN UA (BEAKER) (test qcew=724) 70 mg/dL Negative GLUCOSE UA (BEAKER) (test mlbh=914) 300 mg/dL Negative KETONES UA (BEAKER) (test rrla=024) Negative Negative BILIRUBIN UA (BEAKER) (test fbwk=044) Negative Negative BLOOD UA (BEAKER) (test neyd=566) Moderate Negative NITRITE UA (BEAKER) (test qqcf=027) Negative Negative LEUKOCYTE ESTERASE UA (BEAKER) (test jpqe=196) Large Negative UROBILINOGEN UA (BEAKER) (test jlvd=622) 0.2 mg/dL 0.2-1.0 RBC UA (BEAKER) (test qfpy=642) 45 /HPF WBC UA (BEAKER) (test wiiw=517) > /HPF BACTERIA (BEAKER) (test nkho=041) Occasional MUCUS (BEAKER) (test dykq=5705) Rare SQUAMOUS EPITHELIAL (BEAKER) (test txql=683) < /HPF HYALINE CASTS (BEAKER) (test ljjg=661) 1 /LPF AMORPHOUS CRYSTALS (BEAKER) (test llet=6193) Rare SOURCE(BEAKER) (test pyar=4231) Urine, Voided POCT-GLUCOSE [id number] 21:15:00 Test Item Value Reference Range Comments POC-GLUCOSE METER (BEAKER) 322 mg/dL 70-110 TESTED AT [address] (test fwnu=1749) [place] [address] LACTIC ACID, VENOUS, WHOLE [id number] 19:10:00 Test Item Value Reference Range Comments LACTATE BLOOD VENOUS (2) 3.5 mmol/L 0.5-2.2 Specimen slightly hemolyzed (BEAKER) (test fjxi=7916) Effective 01/04/2016: Units/Reference Range ChangeNew: 0.5-2.2 mmol/L Previous: 5 -20 mg/dLPOCT-GLUCOSE [id number] 18:55:00 Test Item Value Reference Range Comments POC-GLUCOSE METER (BEAKER) 364 mg/dL 70-110 TESTED AT [address] (test ewht=8330) [place] [address] POCT-GLUCOSE [id number] 17:34:00 Test Item Value Reference Range Comments POC-GLUCOSE METER (BEAKER) 395 mg/dL 70-110 Notified [place] KHALIL/TESTED AT [facility] (test owzb=1959) [address] [place] [address] [place], CHEF BROILER OR FRY IN OR/30 MINUTE [id number] 17:18:00Reason for exam:-> cysto with stent placementFINAL REPORT C-ARM FLUOROSCOPY HISTORY: Cystoscopy with stent placement COMPARISON: None FINDINGS: C-arm fluoroscopy was provided in the operating room. No radiologist was present. Fluoroscopy time was reported as 0.28 minutes. It is assumed that these are frontal images and that the side which is imaged is the left. 11 images were submitted for interpretation. Initial images show contrast in mildly dilated left ureter and renal collecting system. Subsequent images a wire in the left upper urinary tract. The final image shows the proximal portion of the double J ureteral stent with its loop in the region of the renal pelvis. The distal portion of the stent is not imaged. Signed: Marcella Brooks MDReport Verified Date/ Time: 09/07/2017 17:18:12 Reading Location: [address] Ortho Consult Reading Room HEMOGLOBIN [id number] 16:38:00 Test Item Value Reference Range Comments HEMOGLOBIN A1C (BEAKER) (test damg=726) 13.7 % 4.3-6.1 POCT-GLUCOSE [id number] 16:25:00 Test Item Value Reference Range Comments POC-GLUCOSE METER (BEAKER) 438 mg/dL 70-110 Notified [place] KHALIL/TESTED AT [facility] (test jwhq=5277) [address] [facility] [address] CBC W/PLT COUNT & AUTO [id number] 16:06:00 Test Item Value Reference Range Comments WHITE BLOOD CELL COUNT (BEAKER) (test bqnt=733) 10.7 K/ L 3.5-10.5 RED BLOOD CELL COUNT (BEAKER) (test ighp=078) 4.96 M/ L 3.93-5.22 HEMOGLOBIN (BEAKER) (test xiyp=773) 13.9 GM/DL 11.2-15.7 HEMATOCRIT (BEAKER) (test zesn=736) 43.5 % 34.1-44.9 MEAN CORPUSCULAR VOLUME (BEAKER) (test bjyp=385) 87.7 fL 79.4-94.8 MEAN CORPUSCULAR HEMOGLOBIN (BEAKER) (test 28.0 pg 25.6-32.2 noii=826) MEAN CORPUSCULAR HEMOGLOBIN CONC (BEAKER) (test 32.0 GM/DL 32.2-35.5 xmfu=111) RED CELL DISTRIBUTION WIDTH (BEAKER) (test 14.1 % 11.7-14.4 wnfh=168) PLATELET COUNT (BEAKER) (test baxd=640) 80 K/CU MM 150-450 MEAN PLATELET VOLUME (BEAKER) (test rcvr=209) 12.3 fL 9.4-12.3 NUCLEATED RED BLOOD CELLS (BEAKER) (test 0 /100 WBC 0-0 hnua=701) NEUTROPHILS RELATIVE PERCENT (BEAKER) (test 84 % jikx=180) LYMPHOCYTES RELATIVE PERCENT (BEAKER) (test 9 % wcok=358) MONOCYTES RELATIVE PERCENT (BEAKER) (test 6 % wiax=645) EOSINOPHILS RELATIVE PERCENT (BEAKER) (test 0 % ysdt=576) BASOPHILS RELATIVE PERCENT (BEAKER) (test 0 % apbl=617) NEUTROPHILS ABSOLUTE COUNT (BEAKER) (test 8.98 K/ L 1.56-6.13 odnm=427) LYMPHOCYTES ABSOLUTE COUNT (BEAKER) (test 0.96 K/ L 1.18-3.74 ojbq=614) MONOCYTES ABSOLUTE COUNT (BEAKER) (test yccp=405) 0.66 K/ L 0.24-0.36 EOSINOPHILS ABSOLUTE COUNT (BEAKER) (test 0.00 K/ L 0.04-0.36 zilr=764) BASOPHILS ABSOLUTE COUNT (BEAKER) (test abgn=699) 0.02 K/ L 0.01-0.08 IMMATURE GRANULOCYTES-RELATIVE PERCENT (BEAKER) 1 % 0-1 (test kibq=1316) (MANUAL DIFFERENTIAL)2017-09-07 16:06:00 Test Item Value Reference Range Comments NEUTROPHILS - REL (DIFF) (BEAKER) (test vxan=1979) 75 % LYMPHOCYTES - REL (DIFF) (BEAKER) (test ulyv=4898) 7 % MONOCYTES - REL (DIFF) (BEAKER) (test xjum=4443) 6 % BANDS - REL (DIFF) (BEAKER) (test yehp=2223) 12 % 0-10 NEUTROPHILS - ABS (DIFF) (BEAKER) (test awaf=8979) 8.03 K/ L 1.80-8.00 LYMPHOCYTES - ABS (DIFF) (BEAKER) (test ilep=3822) 0.75 K/ L 1.48-4.50 MONOCYTES - ABS (DIFF) (BEAKER) (test lisz=5006) 0.64 K/ L 0.00-1.30 BANDS-ABS (DIFF) (BEAKER) (test dgiu=0065) 1.3 K/ L 0.0-0.8 TOTAL COUNTED (BEAKER) (test szby=9188) 100 BANDS + SEGMENTED NEUTROPHILS (BEAKER) (test 9.31 uiiz=1869) VACUOLATED NEUTROPHILS (BEAKER) (test hjcu=407) Present GIANT PLATELETS (BEAKER) (test jgnq=253) Present POLYCHROMATOPHILLIC RBCS(BEAKER) (test nwuq=633) 1+ few BASIC METABOLIC [id number] 15:59:00 Test Item Value Reference Range Comments SODIUM (BEAKER) (test 135 meq/L 136-145 vtar=412) POTASSIUM (BEAKER) (test 4.1 meq/L 3.5-5.1 gkuk=517) CHLORIDE (BEAKER) (test 104 meq/L 98-107 xcwz=680) CO2 (BEAKER) (test 20 meq/L 22-29 twsg=708) BLOOD UREA NITROGEN 20 mg/dL 7-21 (BEAKER) (test rdsw=972) CREATININE (BEAKER) (test 1.20 mg/dL 0.57-1.25 sjps=040) GLUCOSE RANDOM (BEAKER) 403 mg/dL 70-105 (test dikl=538) CALCIUM (BEAKER) (test 8.0 mg/dL 8.4-10.2 sxle=436) EGFR (BEAKER) (test 47 mL/min/1.73 sq m ESTIMATED GFR IS NOT ukue=3956) ACCURATE CREATININE CLEARANCE IN PREDICTING GLOMERULAR FILTRATION RATE. ESTIMATED GFR IS NOT APPLICABLE FOR DIALYSIS PATIENTS. LACTIC ACID, VENOUS, WHOLE [id number] 15:53:00 Test Item Value Reference Range Comments LACTATE BLOOD VENOUS (2) 2.1 mmol/L 0.5-2.2 Specimen moderately hemolyzed (BEAKER) (test fisp=1324) Effective 01/04/2016: Units/Reference Range ChangeNew: 0.5-2.2 mmol/L Previous: 5 -20 mg/dL
[2019-07-20 19:03] LABS: Urine Blood 1+ (NEG); Urine Glucose TRACE (NEG); Urine Protein NEGATIVE (NEG); Urine Specific Gravity 1.025 (1.005-1.030)
[2019-07-20 19:07] LABS: Urine Bacteria <20 /HPF (<20); Urine Culture Reflex Order NOT NEEDED; Urine RBC <5 /HPF (NONE SEEN)
--- NOTE | 2019-07-20 19:18 | RAD REPORT ---
EXAM DESCRIPTION: US - Abdomen Exam Limited - 07/20/2019 6:57 pm CLINICAL HISTORY: ABD PAIN COMPARISON: Abdomen Exam Limited dated 06/27/2019 FINDINGS: The gallbladder has been surgically removed. The common bile duct is normal measuring 2 mm . The liver demonstrates a significantly heterogenous appearance. IMPRESSION: Status post cholecystectomy without biliary dilatation seen.
[2019-07-20] MEDS ORDERED: ONDANSETRON 4 MG (ODT) TAB ONE (19:31)
[2019-07-20] MEDS ORDERED: FENTANYL CITR 100 MCG/2 ML ONE (19:31)
[2019-07-20] MEDS ORDERED: SIMETHICONE 80 MG TAB ONE (20:08)
--- NOTE | 2019-07-20 20:09 | ER ---
Nurse's Notes [facility] Name: Pricila Franklin Age: 59 yrs Sex: Female : 1960 Arrival Date: 07/20/2019 Time: 18:10 Bed 20 Private MD: Diagnosis: Generalized abdominal pain;Colic Presentation: 07/20 18:12 Presenting complaint: RUQ pain and nausea x 3 days. Pt had lap anne 07/[address] afshin Domingo, reports sudden increase in pain 3 days ago. Transition of care: patient was not received from another setting of care. Onset of symptoms was July 17, 2019. Risk Assessment: Do you want to hurt yourself or someone else? Patient reports no desire to harm self or others. Care prior to arrival: Medication(s) given: [place] at 1600. 18:12 Method Of Arrival: Ambulatory hb 18:12 Acuity: GABBY 3 hb 18:16 Initial Sepsis Screen: Does the patient meet any 2 criteria? No. Patient's initial tw2 sepsis screen is negative. Does the patient have a suspected source of infection? No. Patient's initial sepsis screen is negative. Historical: - Allergies: 18:15 No Known Allergies; hb - Home Meds: 18:17 estradiol Oral [Active]; hormone replacement [Active]; Metformin Oral [Active]; unk tw2 allergy med [Active]; unk sleep med [Active]; - PMHx: 18:15 Diabetes - NIDDM; hb - PSHx: 18:15 Hysterectomy; Bowel resection; ovary; Cholecystectomy; hb - Immunization history:: Adult Immunizations up to date. - Social history:: Smoking status: Patient/guardian denies using tobacco. - Ebola Screening: : No symptoms or risks identified at this time. Screenin:16 Abuse screen: Denies threats or abuse. Nutritional screening: No deficits noted. tw2 Tuberculosis screening: No symptoms or risk factors identified. Fall Risk None identified. Assessment: 18:30 General: Appears in no apparent distress. uncomfortable, Behavior is cooperative, jl7 anxious. Pain: Complains of pain in right upper quadrant Pain currently is 10 out of 10 on a pain scale. Quality of pain is described as "It feels like its about to bust.". Neuro: Level of Consciousness is awake, alert, obeys commands, Oriented to person, place, time, situation. Cardiovascular: Patient's skin is warm and dry. Respiratory: Airway is patent Respiratory effort is even, unlabored, Respiratory pattern is regular, symmetrical. GI: Bowel sounds Abd is soft Abdomen is tender to palpation X 4 quads. : No signs and/or symptoms were reported regarding the genitourinary system. EENT: No signs and/or symptoms were reported regarding the EENT system. Derm: Skin is pink, warm \\T\\ dry. 19:03 Reassessment: Patient appears in no apparent distress at this time. Patient and/or aa1 family updated on plan of care and expected duration. Pain level reassessed. Patient is alert, oriented x 3, equal unlabored respirations, skin warm/dry/pink. Pt returned from U/S at this time. 20:25 Reassessment: Patient appears in no apparent distress at this time. Patient is alert, ra1 oriented x 3, equal unlabored respirations, skin warm/dry/pink. Discussed d/c and F/U instructions with patient; denies questions or concerns at this time; ambulatory to lobby with steady gait. Vital Signs: 18:12 BP 151 / 84; Pulse 99; Resp 20; Temp 99.1(TE); Pulse Ox 97% ; Weight 82.55 kg; Height 5 hb ft. 1 in. (154.94 cm); Pain 10/10; 19:04 BP 122 / 62; Pulse 87; Resp 18; Pulse Ox 96% on R/A; Pain 10/10; aa1 20:25 BP 128 / 80; Pulse 86; Resp 18; Pulse Ox 95% on R/A; ra1 18:12 Body Mass Index 34.39 (82.55 kg, 154.94 cm) hb ED Course: 18:10 Patient arrived in ED. mr 18:14 Triage completed. hb 18:14 Arm band placed on. hb 18:17 Marlen Mosher FNP-C is PHCP. snw 18:17 Misha Chua MD is Attending Physician. snw 18:17 Bed in low position. Call light in reach. tw2 18:27 Vielka Rajan, [place] is Primary Nurse. jl7 18:30 Urine collected: clean catch specimen. jl7 18:58 Abdomen Limited US In Process Unspecified. EDMS 19:20 Ultrasound completed. Patient moved back from ultrasound. is 20:25 No provider procedures requiring assistance completed. Patient did not have IV access ra1 during this emergency room visit. Administered Medications: 19:30 Drug: fentaNYL (PF) 50 mcg Route: IM; Site: right deltoid; ra1 20:24 Follow up: Response: No adverse reaction; Pain is decreased; RASS: Alert and Calm (0) ra1 19:30 Drug: Zofran 4 mg Route: PO; ra1 20:24 Follow up: Response: No adverse reaction; Nausea is decreased ra1 20:13 Drug: Simethicone 240 mg Route: PO; ra1 20:23 Follow up: Response: No adverse reaction; Medication administered at discharge. ra1 Outcome: 20:07 Discharge ordered by . snw 20:25 Discharged to home ambulatory, with family. ra1 20:25 Condition: good 20:25 Discharge instructions given to patient, Instructed on discharge instructions, follow up and referral plans. medication usage, Demonstrated understanding of instructions, follow-up care, medications, Prescriptions given X 1. 20:28 Patient left the ED. ra1 Signatures: Dispatcher [employer] EDMS Sharon Peter RN RN aa1 Marlen Mosher, ETL CONSULTANT-C ETL CONSULTANT-Csnw PurdySoumya Negrita Reddy RN RN hb Wise, Tara, RN RN tw2 Vielka Rajan RN RN jl7 Ward Hemphill RN RN ra1 Rosy Bird is
--- NOTE | 2019-07-20 20:09 | EDPHYS ---
Physician Documentation [facility] Name: Pricila Franklin Age: 59 yrs Sex: Female : 1960 Arrival Date: 07/20/2019 Time: 18:10 Bed 20 Private MD: ED Physician Misha Chua HPI: 07/20 20:15 This 59 yrs old Female presents to ER via Ambulatory with complaints of snw Abdominal Pain. 20:15 The patient presents with abdominal pain that is diffuse, s/p lap anne last week. snw Onset: The symptoms/episode began/occurred suddenly, and became worse. The symptoms radiate to chest. Associated signs and symptoms: Pertinent positives: abd distension. The symptoms are described as crampy. Severity of pain: At its worst the pain was moderate severe. It is unknown whether or not the patient has had similar symptoms in the past. Dr. Domingo. Historical: - Allergies: 18:15 No Known Allergies; hb - Home Meds: 18:17 estradiol Oral [Active]; hormone replacement [Active]; Metformin Oral [Active]; unk tw2 allergy med [Active]; unk sleep med [Active]; - PMHx: 18:15 Diabetes - NIDDM; hb - PSHx: 18:15 Hysterectomy; Bowel resection; ovary; Cholecystectomy; hb - Immunization history:: Adult Immunizations up to date. - Social history:: Smoking status: Patient/guardian denies using tobacco. - Ebola Screening: : No symptoms or risks identified at this time. ROS: 20:13 Constitutional: Negative for fever, chills, and weight loss, Eyes: Negative for injury, snw pain, redness, and discharge, ENT: Negative for injury, pain, and discharge, Neck: Negative for injury, pain, and swelling, Cardiovascular: Negative for chest pain, palpitations, and edema, Respiratory: Negative for shortness of breath, cough, wheezing, and pleuritic chest pain, Back: Negative for injury and pain, : Negative for injury, bleeding, discharge, and swelling, MS/Extremity: Negative for injury and deformity, Skin: Negative for injury, rash, and discoloration, Neuro: Negative for headache, weakness, numbness, tingling, and seizure, Psych: Negative for depression, anxiety, suicide ideation, homicidal ideation, and hallucinations. 20:13 Abdomen/GI: Positive for abdominal pain, abdominal distension. Exam: 20:13 Constitutional: This is a well developed, well nourished patient who is awake, alert, snw and in no acute distress. Head/Face: Normocephalic, atraumatic. Eyes: Pupils equal round and reactive to light, extra-ocular motions intact. Lids and lashes normal. Conjunctiva and sclera are non-icteric and not injected. Cornea within normal limits. Periorbital areas with no swelling, redness, or edema. ENT: Nares patent. No nasal discharge, no septal abnormalities noted. Tympanic membranes are normal and external auditory canals are clear. Oropharynx with no redness, swelling, or masses, exudates, or evidence of obstruction, uvula midline. Mucous membranes moist. Neck: Trachea midline, no thyromegaly or masses palpated, and no cervical lymphadenopathy. Supple, full range of motion without nuchal rigidity, or vertebral point tenderness. No Meningismus. Chest/axilla: Normal chest wall appearance and motion. Nontender with no deformity. No lesions are appreciated. Cardiovascular: Regular rate and rhythm with a normal S1 and S2. No gallops, murmurs, or rubs. Normal PMI, no JVD. No pulse deficits. Respiratory: Lungs have equal breath sounds bilaterally, clear to auscultation and percussion. No rales, rhonchi or wheezes noted. No increased work of breathing, no retractions or nasal flaring. Back: No spinal tenderness. No costovertebral tenderness. Full range of motion. Skin: Warm, dry with normal turgor. Normal color with no rashes, no lesions, and no evidence of cellulitis. MS/ Extremity: Pulses equal, no cyanosis. Neurovascular intact. Full, normal range of motion. Neuro: Awake and alert, GCS 15, oriented to person, place, time, and situation. Cranial nerves II-XII grossly intact. Motor strength 5/5 in all extremities. Sensory grossly intact. Cerebellar exam normal. Normal gait. Psych: Awake, alert, with orientation to person, place and time. Behavior, mood, and affect are within normal limits. 20:13 Abdomen/GI: Inspection: abdomen appears normal, Bowel sounds: normal, Palpation: moderate abdominal tenderness, in the right upper quadrant, Liver: is enlarged, lap puncture wounds with minimal erythema. Vital Signs: 18:12 BP 151 / 84; Pulse 99; Resp 20; Temp 99.1(TE); Pulse Ox 97% ; Weight 82.55 kg; Height 5 hb ft. 1 in. (154.94 cm); Pain 10/10; 19:04 BP 122 / 62; Pulse 87; Resp 18; Pulse Ox 96% on R/A; Pain 10/10; aa1 20:25 BP 128 / 80; Pulse 86; Resp 18; Pulse Ox 95% on R/A; ra1 18:12 Body Mass Index 34.39 (82.55 kg, 154.94 cm) hb MDM: 18:19 Patient medically screened. snw 20:14 Data reviewed: vital signs, nurses notes. Data interpreted: Pulse oximetry: on room air snw is 96 %. Interpretation: acceptable. Counseling: I had a detailed discussion with the patient and/or guardian regarding: the historical points, exam findings, and any diagnostic results supporting the discharge/admit diagnosis, lab results, radiology results, the need for outpatient follow up, to return to the emergency department if symptoms worsen or persist or if there are any questions or concerns that arise at home. Special discussion: Based on the patient's Hx, exam, and Dx evaluation, there is no indication for emergent surgery or inpatient Tx. It is understood by the patient/guardian that if the Sx's persist or worsen they need to return immediately for re-evaluation. Based on the history and exam findings, there is no indication for further emergent testing or inpatient evaluation. I discussed with the patient/guardian the need to see the general surgeon for further evaluation of the symptoms. I discussed with the patient/guardian the need to see the primary care provider for further evaluation of the symptoms. 07/20 18:19 Order name: Urine Microscopic Only; Complete Time: 19:09 snw 07/20 18:38 Order name: Urine Dipstick--Ancillary (enter results); Complete Time: 19:09 bd 07/20 18:19 Order name: Abdomen Limited US; Complete Time: 19:20 snw 07/20 18:19 Order name: Urine Dipstick-Ancillary (obtain specimen); Complete Time: 18:51 snw Administered Medications: 19:30 Drug: fentaNYL (PF) 50 mcg Route: IM; Site: right deltoid; ra1 20:24 Follow up: Response: No adverse reaction; Pain is decreased; RASS: Alert and Calm (0) ra1 19:30 Drug: Zofran 4 mg Route: PO; ra1 20:24 Follow up: Response: No adverse reaction; Nausea is decreased ra1 20:13 Drug: Simethicone 240 mg Route: PO; ra1 20:23 Follow up: Response: No adverse reaction; Medication administered at discharge. ra1 Disposition: 07/21 06:56 Co-signature as Attending Physician, Misha Chua MD I agree with the assessment and lorenzo plan of care. Disposition: 07/20/19 20:07 Discharged to Home. Impression: Generalized abdominal pain, Colic. - Condition is Stable. - Discharge Instructions: Abdominal Pain, Adult, Biliary Colic, Adult. - Medication Reconciliation Form, Thank You Letter, Antibiotic Education, Prescription Opioid Use form. - Follow up: Private Physician; When: 2 - 3 days; Reason: Recheck today's complaints, Continuance of care, Re-evaluation by your physician. Follow up: Emergency Department; When: As needed; Reason: Worsening of condition. Signatures: Dispatcher [employer] EDMisha Daniel MD MD cha Therrien, Shelly, OIL HEATERMAN-C OIL HEATERMAN-Csnw Negrita Reddy RN RN Stacey Ward RN RN 2 Ward Hemphill RN RN ra1 Corrections: (The following items were deleted from the chart) 07/20 20:14 20:13 Abdomen/GI: Inspection: abdomen appears normal, Bowel sounds: normal, Palpation: snw moderate abdominal tenderness, in the right upper quadrant, Liver: is enlarged, snw 20:28 20:07 07/20/2019 20:07 Discharged to Home. Impression: Generalized abdominal pain; ra1 Colic. Condition is Stable. Forms are Medication Reconciliation Form, Thank You Letter, Antibiotic Education, Prescription Opioid Use. Follow up: Private Physician; When: 2 - 3 days; Reason: Recheck today's complaints, Continuance of care, Re-evaluation by your physician. Follow up: Emergency Department; When: As needed; Reason: Worsening of condition. snw
[2019-07-20 23:32] VITALS: TEMP 99.1
[2019-07-20 23:35] VITALS: BP 128/80; O2SAT 95
== END 2019-07-20 20:28 | disposition home or self-care (01) ==
LOC: ER 18:07
DX: R10.84 Generalized abdominal pain (principal); Z90.49 Acquired absence of other specified parts of digestive tract; E11.9 Type 2 diabetes mellitus without complications
CPT/HCPCS: 76705; 96372; 99284; J3010; 81003; 81015

== ENCOUNTER 2022-02-23 13:07 | Emergency (ER) | payer BC ==
--- OUTSIDE RECORDS SUMMARY | 2022-02-23 13:11 | XMS REPORT | Continuity of Care Document ---
:1960 Author Organization [facility] t Address [address] [place] [address] [address]. [address] [place] [address] Care Team Providers Name Role Phone RICKI_SMITH_TrayJ Attending Clinician Unavailable OTILIO Attending Clinician Unavailable CARISSA BREEN Attending Clinician Unavailable RICKI_SMITH_Charan Admitting Clinician Unavailable OTILIO Admitting Clinician Unavailable JAMSHIDCARISSA Waterman Admitting Clinician Unavailable Payers Payer Name Policy Type Policy Number Effective Date Expiration Date S ource [place] [id number] 2020 00:00:00 Problems This patient has no known problems. Allergies, Adverse Reactions, Alerts This patient has no known allergies or adverse reactions. Medications This patient has no known medications. Procedures This patient has no known procedures. Encounters Start End Encounter Admission Attending Care Care Encounter Source Date/Time Date/Time Type Type Clinicians Facility Department ID 2022-01-24 2022-01-24 Outpatient [facility]_ PRIV PRIV [id number] [facility] 09:16:00 09:16:00 Charan [id number] Medic al 2022-01-24 2022-01-24 Outpatient [facility]_ PRIV PRIV [id number] [facility] 09:16:00 09:16:00 Charan [id number] Medic al 2022-01-24 2022-01-24 Outpatient [facility]_ PRIV PRIV [id number] [facility] 09:16:00 09:16:00 Charan [id number] Medic al Results Test Description Test Time Test Comments Results Result Comments Source AFB CULTURE + SMEAR 2017-10-24 04:25:00 Test Item Value Reference Range Interpretation Comme nts CULTURE (BEAKER) (test code = 1095) No acid-fast bacilli isolated i n 42 days AFB SMEAR (BEAKER) (test code = 994) No acid fast bacilli seen FUNGUS CULTURE + [id number] 13:36:00 Test Item Value Reference Range Interpretation Comments CULTURE ([place]) (test No fungus isolated in code = 1095) 28 days FUNGUS SMEAR ([facility]) No fungi seen (test code = 1406) [place], MEDICAL GENETICS DIRECTOR IN OR/30 MINUTE [id number] 15:53:00Reason for exam:- >NephrolithiasIs the patient ?->NoWhen was patient's last menstrual cycle?->10/02/18FINAL REPORT TECHNIQUE: Fluoroscopic images from urologic procedure were submitted for interpretation. INDICATION: 57-year-old woman with nephrolithiasis. COMPARISON: None. FINDI NGS:Single frontal image shows unilateral ureteral stent in place. Fluoroscopy time: 52 secondsNumber of images: 1 IMPRESSION:Fluoroscopic images from urologic procedure as detailed above, not obtainedby the undersigned. Please refer to operative note for more details of the procedure and findings. Signed: Fay Irwin MDReport Verified Date/Time: 10/02/2017 15:53:40 Reading Location: [address] Radiology Reading Room POCT-GLUCOSE [id number] 10:54:00 Test Item Value Reference Range Interpretation Comments POC-GLUCOSE METER 145 mg/dL 70-110 H TESTED AT [facility] 6720 ([facility]) (test code = [place] 15[place]) [id number] URINE [id number] 10:33:00 Test Item Value Reference Range Interpretation Comments CULTURE ([place]) (test code = 1095) Ampicillin (test code = S 26) Linezolid (test code = S 40) Nitrofurantoin (test code S = 23) Tetracycline (test code = S 2) Vancomycin (test code = S 13) CULTURE ([place]) (test A 10-19 ,000 col/mL code = 1095) Enterococcus sp ecies <10,000 col/mL Gram Negative rods<10,000 col/mL BETA HEMOLYTIC STREPTOCOCCUSURINALYSIS W/ [id number] 15:50:00 Test Item Value Reference Range Interpretation Comments COLOR (BEAKER) (test code = 470) Yellow CLARITY (BEAKER) (test code = 469) Clear SPECIFIC GRAVITY UA (BEAKER) (test 1.020 1.001-1.035 code = 468) PH UA (BEAKER) (test code = 467) 5.5 5.0-8.0 PROTEIN UA (BEAKER) (test code = 30 mg/dL Negative A 464) GLUCOSE UA (BEAKER) (test code = Negative Negative 365) KETONES UA (BEAKER) (test code = Negative Negative 371) BILIRUBIN UA (BEAKER) (test code = Negative Negative 462) BLOOD UA (BEAKER) (test code = 461) Large Negative A NITRITE UA (BEAKER) (test code = Negative Negative 465) LEUKOCYTE ESTERASE UA (BEAKER) Negative Negative (test code = 466) UROBILINOGEN UA (BEAKER) (test code 0.2 mg/dL 0.2-1.0 = 463) RBC UA (BEAKER) (test code = 519) 211 /HPF WBC UA (BEAKER) (test code = 520) 5 /HPF MUCUS (BEAKER) (test code = 1574) Rare SQUAMOUS EPITHELIAL (BEAKER) (test 3 /HPF code = 516) SOURCE(BEAKER) (test code = 7975) BASIC METABOLIC [id number] 14:43:00 Test Item Value Reference Range Interpretation Comments SODIUM (BEAKER) 140 meq/L 136-145 (test code = 381) POTASSIUM (BEAKER) 4.1 meq/L 3.5-5.1 (test code = 379) CHLORIDE (BEAKER) 105 meq/L 98-107 (test code = 382) CO2 (BEAKER) (test 27 meq/L 22-29 code = 355) BLOOD UREA NITROGEN 14 mg/dL 7-21 (BEAKER) (test code = 354) CREATININE (BEAKER) 0.80 mg/dL 0.57-1.25 (test code = 358) GLUCOSE RANDOM 69 mg/dL 70-105 L (BEAKER) (test code = 652) CALCIUM (BEAKER) 9.5 mg/dL 8.4-10.2 (test code = 697) EGFR (BEAKER) (test 74 mL/min/1.73 ESTIMA JULY GFR IS code = 1092) sq m NOT ACCURATE CREATININE CLEARANCE IN PREDICTING GLOMERULAR FILTRATION RATE . ESTIMATED GFR I S NOT APPLICABLE FOR DIALYSIS PATIEN TS. [id number] 14:28:00 Test Item Value Reference Range Interpretation Comments PARTIAL THROMBOPLASTIN TIME 30.8 seconds 22.5-36.0 (BEAKER) (test code = 760) PROTHROMBIN [id number] 14:27:00 Test Item Value Reference Range Interpretation Comments PROTIME (BEAKER) (test code = 15.9 seconds 11.7-14.7 H 759) INR (BEAKER) (test code = 370) 1.3 <=5.9 RECOMMENDED COUMADIN/WARFARIN INR THERAPY RANGESSTANDARD DOSE: 2.0 - 3.0 Includes: PROPHYLAXIS forvenous thrombosis, systemic embolization; TREATMENT for venous thrombosis and/or pulmonary embolus.HIGH RISK: Target INR is 2.5-3.5 for patients with mechanical heart valves.CBC W/PLT COUNT & AUTO DIFFERENTIAL 2017-09-26 14:22:00 Test Item Value Reference Range Interpretation Comments WHITE BLOOD CELL COUNT (BEAKER) 5.0 K/ L 3.5-10.5 (test code = 775) RED BLOOD CELL COUNT (BEAKER) 4.28 M/ L 3.93-5.22 (test code = 761) HEMOGLOBIN (BEAKER) (test code = 12.1 GM/DL 11.2-15.7 410) HEMATOCRIT (BEAKER) (test code = 38.6 % 34.1-44.9 411) MEAN CORPUSCULAR VOLUME (BEAKER) 90.2 fL 79.4-94.8 (test code = 753) MEAN CORPUSCULAR HEMOGLOBIN 28.3 pg 25.6-32.2 (BEAKER) (test code = 751) MEAN CORPUSCULAR HEMOGLOBIN CONC 31.3 GM/DL 32.2-35.5 L (BEAKER) (test code = 752) RED CELL DISTRIBUTION WIDTH 14.3 % 11.7-14.4 (BEAKER) (test code = 412) PLATELET COUNT (BEAKER) (test 137 K/CU MM 150-450 L code = 756) MEAN PLATELET VOLUME (BEAKER) 11.7 fL 9.4-12.3 (test code = 754) NUCLEATED RED BLOOD CELLS 0 /100 WBC 0-0 (BEAKER) (test code = 413) NEUTROPHILS RELATIVE PERCENT 54 % (BEAKER) (test code = 429) LYMPHOCYTES RELATIVE PERCENT 35 % (BEAKER) (test code = 430) MONOCYTES RELATIVE PERCENT 9 % (BEAKER) (test code = 431) EOSINOPHILS RELATIVE PERCENT 1 % (BEAKER) (test code = 432) BASOPHILS RELATIVE PERCENT 1 % (BEAKER) (test code = 437) NEUTROPHILS ABSOLUTE COUNT 2.70 K/ L 1.56-6.13 (BEAKER) (test code = 670) LYMPHOCYTES ABSOLUTE COUNT 1.74 K/ L 1.18-3.74 (BEAKER) (test code = 414) MONOCYTES ABSOLUTE COUNT (BEAKER) 0.44 K/ L 0.24-0.36 H (test code = 415) EOSINOPHILS ABSOLUTE COUNT 0.05 K/ L 0.04-0.36 (BEAKER) (test code = 416) BASOPHILS ABSOLUTE COUNT (BEAKER) 0.04 K/ L 0.01-0.08 (test code = 417) IMMATURE GRANULOCYTES-RELATIVE 0 % 0-1 PERCENT (BEAKER) (test code = 2801) RAD, CHEST, 2 [id number] 13:40:00Reason for exam:->Pre admissionIs the patient ?->NoFINAL REPORT Chest, PA and lateral. History: Preadmission testing. Nephrolithiasis. Comparison: None available. Discussion: The cardiomediastinal silhouette and pulmonary vascu lature are within normal limits. The lungs are clear without evidence of consolidation or effusion.There are no acute osseous abnormalities. The soft tissues are unremarkable. IMPRESSION: No acute cardiopulmonary abnormality. Signed: Jia Adams MDReport Verified Date/Time: 09/26/2017 13:40:29Reading Location: [address] Radiology Reading Room POCT-GLUCOSE [id number] 10:17:00 Test Item Value Reference Range Interpretation Comments POC-GLUCOSE METER 237 mg/dL 70-110 H TESTED AT [facility] 89[address] ([facility]) (test code = [place]) [id number] CBC (HEMOGRAM ONLY)2017-09-14 06:38:00 Test Item Value Reference Range Interpretation Comments WHITE BLOOD CELL COUNT (BEAKER) 4.0 K/ L 3.5-10.5 (test code = 775) RED BLOOD CELL COUNT (BEAKER) 3.84 M/ L 3.93-5.22 L (test code = 761) HEMOGLOBIN (BEAKER) (test code = 10.9 GM/DL 11.2-15.7 L 410) HEMATOCRIT (BEAKER) (test code = 34.0 % 34.1-44.9 L 411) MEAN CORPUSCULAR VOLUME (BEAKER) 88.5 fL 79.4-94.8 (test code = 753) MEAN CORPUSCULAR HEMOGLOBIN 28.4 pg 25.6-32.2 (BEAKER) (test code = 751) MEAN CORPUSCULAR HEMOGLOBIN CONC 32.1 GM/DL 32.2-35.5 L (BEAKER) (test code = 752) RED CELL DISTRIBUTION WIDTH 14.3 % 11.7-14.4 (BEAKER) (test code = 412) PLATELET COUNT (BEAKER) (test 112 K/CU MM 150-450 L code = 756) MEAN PLATELET VOLUME (BEAKER) 12.0 fL 9.4-12.3 (test code = 754) NUCLEATED RED BLOOD CELLS 0 /100 WBC 0-0 (BEAKER) (test code = 413) BASIC METABOLIC [id number] 06:06:00 Test Item Value Reference Range Interpretation Comments SODIUM (BEAKER) 138 meq/L 136-145 (test code = 381) POTASSIUM (BEAKER) 3.5 meq/L 3.5-5.1 (test code = 379) CHLORIDE (BEAKER) 108 meq/L 98-107 H (test code = 382) CO2 (BEAKER) (test 22 meq/L 22-29 code = 355) BLOOD UREA NITROGEN 6 mg/dL 7-21 L (BEAKER) (test code = 354) CREATININE (BEAKER) 0.75 mg/dL 0.57-1.25 (test code = 358) GLUCOSE RANDOM 147 mg/dL 70-105 H (BEAKER) (test code = 652) CALCIUM (BEAKER) 8.3 mg/dL 8.4-10.2 L (test code = 697) EGFR (BEAKER) (test 80 mL/min/1.73 ESTIMA JULY GFR IS code = 1092) sq m NOT ACCURATE CREATININE CLEARANCE IN PREDICTING GLOMERULAR FILTRATION RATE . ESTIMATED GFR I S NOT APPLICABLE FOR DIALYSIS PATIEN TS. POCT-GLUCOSE [id number] 21:17:00 Test Item Value Reference Range Interpretation Comments POC-GLUCOSE METER 169 mg/dL 70-110 H TESTED AT [facility] 67[address] ([facility]) (test code = [place]) [id number] POCT-GLUCOSE [id number] 18:12:00 Test Item Value Reference Range Interpretation Comments POC-GLUCOSE METER 135 mg/dL 70-110 H TESTED AT [facility] 67[address] ([facility]) (test code = [place] 15[address]) [address] U/S, ABDOMINAL, [id number] 17:48:00Reason for exam:->evaluate for splenomegaly in patient [...] is 2.0 cm. Impression:Mild hepatosplenomegaly.Possible lower pole nonobstructing left renal stone. Signed: Round, Soumya MDReport Verified Date/Time: 09/13/2017 17:48:27 Reading Location: [facility] B1 P006J Ultrasound Reading Room PERIPHERAL BLOOD SMEAR - PATHOLOGIST [id number] 14:08:00 Test Item Value Reference Range Interpretation Comments PERIPHERAL SMR Mild thrombocytopenia REVIEW ([facility]) with occasional large (test code = 5510) forms. No increase in schistocytes. No blasts detected. [id number] Penny Malone MD 2 ([facility]) (test (electronic signature) code = 2849) POCT-GLUCOSE [id number] 13:49:00 Test Item Value Reference Range Interpretation Comments POC-GLUCOSE METER 105 mg/dL 70-110 TESTED AT [facility] 67 ([facility]) (test code = [place]) [address] BLOOD [id number] 10:01:00 Test Item Value Reference Range Interpretation Comments CULTURE ([facility]) (test No growth in 5 days code = 1095) POCT-GLUCOSE [id number] 08:46:00 Test Item Value Reference Range Interpretation Comments POC-GLUCOSE METER 116 mg/dL 70-110 H TESTED AT [place] [address] ([facility]) (test code = [place] [facility] 1538) [address] CBC W/PLT COUNT & AUTO [id number] 07:54:00 Test Item Value Reference Range Interpretation Comments WHITE BLOOD CELL COUNT (AKER) 4.7 K/ L 3.5-10.5 (test code = 775) RED BLOOD CELL COUNT (AKER) 3.66 M/ L 3.93-5.22 L (test code = 761) HEMOGLOBIN (BEAKER) (test code = 10.2 GM/DL 11.2-15.7 L 410) HEMATOCRIT (BEAKER) (test code = 32.3 % 34.1-44.9 L 411) MEAN CORPUSCULAR VOLUME (BEAKER) 88.3 fL 79.4-94.8 (test code = 753) MEAN CORPUSCULAR HEMOGLOBIN 27.9 pg 25.6-32.2 (BEAKER) (test code = 751) MEAN CORPUSCULAR HEMOGLOBIN CONC 31.6 GM/DL 32.2-35.5 L (BEAKER) (test code = 752) RED CELL DISTRIBUTION WIDTH 14.3 % 11.7-14.4 (BEAKER) (test code = 412) PLATELET COUNT (BEAKER) (test 100 K/CU MM 150-450 L code = 756) MEAN PLATELET VOLUME (BEAKER) 11.4 fL 9.4-12.3 (test code = 754) NUCLEATED RED BLOOD CELLS 0 /100 WBC 0-0 (BEAKER) (test code = 413) NEUTROPHILS RELATIVE PERCENT 58 % (BEAKER) (test code = 429) LYMPHOCYTES RELATIVE PERCENT 31 % (BEAKER) (test code = 430) MONOCYTES RELATIVE PERCENT 9 % (BEAKER) (test code = 431) EOSINOPHILS RELATIVE PERCENT 1 % (BEAKER) (test code = 432) BASOPHILS RELATIVE PERCENT 0 % (BEAKER) (test code = 437) NEUTROPHILS ABSOLUTE COUNT 2.69 K/ L 1.56-6.13 (BEAKER) (test code = 670) LYMPHOCYTES ABSOLUTE COUNT 1.45 K/ L 1.18-3.74 (BEAKER) (test code = 414) MONOCYTES ABSOLUTE COUNT (BEAKER) 0.41 K/ L 0.24-0.36 H (test code = 415) EOSINOPHILS ABSOLUTE COUNT 0.06 K/ L 0.04-0.36 (BEAKER) (test code = 416) BASOPHILS ABSOLUTE COUNT (BEAKER) 0.02 K/ L 0.01-0.08 (test code = 417) IMMATURE GRANULOCYTES-RELATIVE 1 % 0-1 PERCENT (BEAKER) (test code = 2801) (MANUAL DIFFERENTIAL)2017-09-13 07:54:00 Test Item Value Reference Range Interpretation Comments TOTAL COUNTED (BEAKER) (test code = 1351) PLT MORPHOLOGY (BEAKER) (test code = Normal 486) RBC MORPHOLOGY (BEAKER) (test code = Normal 762) ATYPICAL LYMPHS(BEAKER) (test code = Present 1678) VITAMIN B12 AND [id number] 07:24:00 Test Item Value Reference Range Interpretation Comments VITAMIN B12 (BEAKER) (test code = 362 pg/mL 213-816 774) FOLATE (BEAKER) (test code = 362) 14.2 ng/mL >=7.0 RETICULOCYTE [id number] 06:40:00 Test Item Value Reference Range Interpretation Comments RETICULOCYTE COUNT PCT (BEAKER) (test 1.9 % 0.5-1.7 H code = 575) LACTATE DEHYDROGENASE (LDH)2017-09-13 06:27:00 Test Item Value Reference Range Interpretation Comments LACTATE DEHYDROGENASE (BEAKER) (test 201 U/L 125-220 code = 635) COMPREHENSIVE METABOLIC [id number] 06:27:00 Test Item Value Reference Range Interpretation Comments TOTAL PROTEIN 6.3 gm/dL 6.0-8.3 (BEAKER) (test code = 770) ALBUMIN (BEAKER) 2.8 g/dL 3.5-5.0 L (test code = 1145) ALKALINE PHOSPHATASE 77 U/L 40-150 (BEAKER) (test code = 346) BILIRUBIN TOTAL 0.6 mg/dL 0.2-1.2 (BEAKER) (test code = 377) SODIUM (BEAKER) (test 141 meq/L 136-145 code = 381) POTASSIUM (BEAKER) 3.5 meq/L 3.5-5.1 (test code = 379) CHLORIDE (BEAKER) 110 meq/L 98-107 H (test code = 382) CO2 (BEAKER) (test 24 meq/L 22-29 code = 355) BLOOD UREA NITROGEN 6 mg/dL 7-21 L (BEAKER) (test code = 354) CREATININE (BEAKER) 0.78 mg/dL 0.57-1.25 (test code = 358) GLUCOSE RANDOM 121 mg/dL 70-105 H (BEAKER) (test code = 652) CALCIUM (BEAKER) 8.0 mg/dL 8.4-10.2 L (test code = 697) AST (SGOT) (BEAKER) 20 U/L 5-34 (test code = 353) ALT (SGPT) (BEAKER) 14 U/L 6-55 (test code = 347) EGFR (BEAKER) (test 77 mL/min/1.73 ESTIMA JULY GFR IS code = 1092) sq m NOT ACCURATE CREATININE CLEARANCE IN PREDICTING GLOMERULAR FILTRATION RATE . ESTIMATED GFR I S NOT APPLICABLE FOR DIALYSIS PATIEN TS. HEPATITIS C [id number] 06:23:00 Test Item Value Reference Range Interpretation Comments HEPATITIS C ANTIBODY (BEAKER) Nonreactive Nonreactive (test code = 367) HIV-1 ANTIGEN WITH HIV-1/2 [id number] 06:23:00 Test Item Value Reference Range Interpretation Comments HIV-1 ANTIGEN WITH HIV 1\T\2 Nonreactive Nonreactive ANTIBODY (2) ([facility]) (test code = 2586) [id number] 06:02:00 Test Item Value Reference Range Interpretation Comments HAPTOGLOBIN (BEAKER) (test code = 196 mg/dL 14-258 366) BLOOD [id number] 23:00:00 Test Item Value Reference Range Interpretation Comments CULTURE ([facility]) (test No growth in 5 days code = 1095) POCT-GLUCOSE [id number] 21:51:00 Test Item Value Reference Range Interpretation Comments POC-GLUCOSE METER 225 mg/dL 70-110 H TESTED AT [place] [address] ([facility]) (test code = [place] [facility] 1538) [id number] POCT-GLUCOSE [id number] 17:29:00 Test Item Value Reference Range Interpretation Comments POC-GLUCOSE METER 132 mg/dL 70-110 H TESTED AT [place] [address] ([facility]) (test code = [place] [facility] 1538) [address] CBC W/PLT COUNT & AUTO [id number] 15:28:00 Test Item Value Reference Range Interpretation Comments WHITE BLOOD CELL COUNT (BEAKER) 4.1 K/ L 3.5-10.5 (test code = 775) RED BLOOD CELL COUNT (BEAKER) 3.71 M/ L 3.93-5.22 L (test code = 761) HEMOGLOBIN (BEAKER) (test code = 10.4 GM/DL 11.2-15.7 L 410) HEMATOCRIT (BEAKER) (test code = 32.4 % 34.1-44.9 L 411) MEAN CORPUSCULAR VOLUME (BEAKER) 87.3 fL 79.4-94.8 (test code = 753) MEAN CORPUSCULAR HEMOGLOBIN 28.0 pg 25.6-32.2 (BEAKER) (test code = 751) MEAN CORPUSCULAR HEMOGLOBIN CONC 32.1 GM/DL 32.2-35.5 L (BEAKER) (test code = 752) RED CELL DISTRIBUTION WIDTH 14.1 % 11.7-14.4 (BEAKER) (test code = 412) PLATELET COUNT (BEAKER) (test code 80 K/CU MM 150-450 L = 756) MEAN PLATELET VOLUME (BEAKER) 11.6 fL 9.4-12.3 (test code = 754) NUCLEATED RED BLOOD CELLS (BEAKER) 0 /100 WBC 0-0 (test code = 413) NEUTROPHILS RELATIVE PERCENT 59 % (BEAKER) (test code = 429) LYMPHOCYTES RELATIVE PERCENT 30 % (BEAKER) (test code = 430) MONOCYTES RELATIVE PERCENT 9 % (BEAKER) (test code = 431) EOSINOPHILS RELATIVE PERCENT 1 % (BEAKER) (test code = 432) BASOPHILS RELATIVE PERCENT 1 % (BEAKER) (test code = 437) NEUTROPHILS ABSOLUTE COUNT 2.40 K/ L 1.56-6.13 (BEAKER) (test code = 670) LYMPHOCYTES ABSOLUTE COUNT 1.21 K/ L 1.18-3.74 (BEAKER) (test code = 414) MONOCYTES ABSOLUTE COUNT (BEAKER) 0.37 K/ L 0.24-0.36 H (test code = 415) EOSINOPHILS ABSOLUTE COUNT 0.05 K/ L 0.04-0.36 (BEAKER) (test code = 416) BASOPHILS ABSOLUTE COUNT (BEAKER) 0.02 K/ L 0.01-0.08 (test code = 417) IMMATURE GRANULOCYTES-RELATIVE 1 % 0-1 PERCENT (BEAKER) (test code = 2801) (MANUAL DIFFERENTIAL)2017-09-12 15:28:00 Test Item Value Reference Range Interpretation Comments TOTAL COUNTED (BEAKER) (test code = 1351) WBC MORPHOLOGY (BEAKER) (test code = Normal 487) PLT MORPHOLOGY (BEAKER) (test code = Normal 486) RBC MORPHOLOGY (BEAKER) (test code = Normal 762) POCT-GLUCOSE [id number] 12:35:00 Test Item Value Reference Range Interpretation Comments POC-GLUCOSE METER 154 mg/dL 70-110 H TESTED AT [facility] 6720 (BEAKER) (test code = [place] 1538) [address] POCT-GLUCOSE [id number] 09:43:00 Test Item Value Reference Range Interpretation Comments POC-GLUCOSE METER 108 mg/dL 70-110 TESTED AT [facility] 6720 (BEAKER) (test code = [place] 1538) [address] BASIC METABOLIC [id number] 05:11:00 Test Item Value Reference Range Interpretation Comments SODIUM (BEAKER) 140 meq/L 136-145 (test code = 381) POTASSIUM (BEAKER) 3.2 meq/L 3.5-5.1 L (test code = 379) CHLORIDE (BEAKER) 108 meq/L 98-107 H (test code = 382) CO2 (BEAKER) (test 19 meq/L 22-29 L code = 355) BLOOD UREA NITROGEN 6 mg/dL 7-21 L (BEAKER) (test code = 354) CREATININE (BEAKER) 0.71 mg/dL 0.57-1.25 (test code = 358) GLUCOSE RANDOM 98 mg/dL 70-105 (BEAKER) (test code = 652) CALCIUM (BEAKER) 8.0 mg/dL 8.4-10.2 L (test code = 697) EGFR (BEAKER) (test 85 mL/min/1.73 ESTIMA JULY GFR IS code = 1092) sq m NOT ACCURATE CREATININE CLEARANCE IN PREDICTING GLOMERULAR FILTRATION RATE . ESTIMATED GFR I S NOT APPLICABLE FOR DIALYSIS PATIEN TS. POCT-GLUCOSE [id number] 22:14:00 Test Item Value Reference Range Interpretation Comments POC-GLUCOSE METER 112 mg/dL 70-110 H TESTED AT [facility] 6720 ([facility]) (test code = [place] [facility] 1538) [address] POCT-GLUCOSE [id number] 18:30:00 Test Item Value Reference Range Interpretation Comments POC-GLUCOSE METER 98 mg/dL 70-110 TESTED AT [facility] 6720 ([facility]) (test code = [place] [facility] [address] 1538) CBC W/PLT COUNT & AUTO [id number] 14:59:00 Test Item Value Reference Range Interpretation Comments WHITE BLOOD CELL COUNT (BEAKER) 3.4 K/ L 3.5-10.5 L (test code = 775) RED BLOOD CELL COUNT (BEAKER) 3.68 M/ L 3.93-5.22 L (test code = 761) HEMOGLOBIN (BEAKER) (test code = 10.3 GM/DL 11.2-15.7 L 410) HEMATOCRIT (BEAKER) (test code = 33.1 % 34.1-44.9 L 411) MEAN CORPUSCULAR VOLUME (BEAKER) 89.9 fL 79.4-94.8 (test code = 753) MEAN CORPUSCULAR HEMOGLOBIN 28.0 pg 25.6-32.2 (BEAKER) (test code = 751) MEAN CORPUSCULAR HEMOGLOBIN CONC 31.1 GM/DL 32.2-35.5 L (BEAKER) (test code = 752) RED CELL DISTRIBUTION WIDTH 14.1 % 11.7-14.4 (BEAKER) (test code = 412) PLATELET COUNT (BEAKER) (test code 79 K/CU MM 150-450 L = 756) MEAN PLATELET VOLUME (BEAKER) 11.4 fL 9.4-12.3 (test code = 754) NUCLEATED RED BLOOD CELLS (BEAKER) 0 /100 WBC 0-0 (test code = 413) NEUTROPHILS RELATIVE PERCENT 52 % (BEAKER) (test code = 429) LYMPHOCYTES RELATIVE PERCENT 35 % (BEAKER) (test code = 430) MONOCYTES RELATIVE PERCENT 10 % (BEAKER) (test code = 431) EOSINOPHILS RELATIVE PERCENT 2 % (BEAKER) (test code = 432) BASOPHILS RELATIVE PERCENT 1 % (BEAKER) (test code = 437) NEUTROPHILS ABSOLUTE COUNT 1.75 K/ L 1.56-6.13 (BEAKER) (test code = 670) LYMPHOCYTES ABSOLUTE COUNT 1.17 K/ L 1.18-3.74 L (BEAKER) (test code = 414) MONOCYTES ABSOLUTE COUNT (BEAKER) 0.35 K/ L 0.24-0.36 (test code = 415) EOSINOPHILS ABSOLUTE COUNT 0.07 K/ L 0.04-0.36 (BEAKER) (test code = 416) BASOPHILS ABSOLUTE COUNT (BEAKER) 0.02 K/ L 0.01-0.08 (test code = 417) IMMATURE GRANULOCYTES-RELATIVE 1 % 0-1 PERCENT (BEAKER) (test code = 2801) (MANUAL DIFFERENTIAL)2017-09-11 14:59:00 Test Item Value Reference Range Interpretation Comments TOTAL COUNTED (BEAKER) (test code = 1359) POCT-GLUCOSE [id number] 13:51:00 Test Item Value Reference Range Interpretation Comments POC-GLUCOSE METER 101 mg/dL 70-110 TESTED AT [facility] [address] (BEAKER) (test code = DENY [place] 1538) [id number] POCT-GLUCOSE [id number] 08:29:00 Test Item Value Reference Range Interpretation Comments POC-GLUCOSE METER 129 mg/dL 70-110 H TESTED AT [facility] [address] ([facility]) (test code = DENY [place] 1538) [id number] VANCOMYCIN LEVEL, [id number] 05:47:00 Test Item Value Reference Range Interpretation Comments VANCOMYCIN TROUGH (BEAKER) (test 11.1 ug/mL 10.0-20.0 code = 522) Please draw 30 minutes prior to vancomycin due time. Do not administer if vancomycin trough is >20 mcg/mL. Thank you!BASIC METABOLIC [id number] 05:37:00 Test Item Value Reference Range Interpretation Comments SODIUM (BEAKER) 141 meq/L 136-145 (test code = 381) POTASSIUM (BEAKER) 4.1 meq/L 3.5-5.1 (test code = 379) CHLORIDE (BEAKER) 112 meq/L 98-107 H (test code = 382) CO2 (BEAKER) (test 21 meq/L 22-29 L code = 355) BLOOD UREA NITROGEN 7 mg/dL 7-21 (BEAKER) (test code = 354) CREATININE (BEAKER) 0.76 mg/dL 0.57-1.25 (test code = 358) GLUCOSE RANDOM 125 mg/dL 70-105 H (BEAKER) (test code = 652) CALCIUM (BEAKER) 8.2 mg/dL 8.4-10.2 L (test code = 697) EGFR (BEAKER) (test 79 mL/min/1.73 ESTIMA JULY GFR IS code = 1092) sq m NOT ACCURATE CREATININE CLEARANCE IN PREDICTING GLOMERULAR FILTRATION RATE . ESTIMATED GFR I S NOT APPLICABLE FOR DIALYSIS PATIEN TS. POCT-GLUCOSE [id number] 21:36:00 Test Item Value Reference Range Interpretation Comments POC-GLUCOSE METER 145 mg/dL 70-110 H TESTED AT [facility] [address] ([facility]) (test code = DENY [place] 1538) [id number] POCT-GLUCOSE [id number] 17:44:00 Test Item Value Reference Range Interpretation Comments POC-GLUCOSE METER 178 mg/dL 70-110 H TESTED AT [facility] [address] (BEAKER) (test code = SHANNAWY Meg[place] 1538) [id number] POCT-GLUCOSE [id number] 13:00:00 Test Item Value Reference Range Interpretation Comments POC-GLUCOSE METER 162 mg/dL 70-110 H TESTED AT [place] [address] ([facility]) (test code = DENY [place] 1538) [id number] URINE [id number] 12:41:00 Test Item Value Reference Range Interpretation Comments CULTURE ([facility]) (test code = 1095) Amikacin (test code = 1) S Ampicillin + Sulbactam S (test code = 6) Aztreonam (test code = 32) S Cefepime (test code = 51) S Cefoxitin (test code = 68) S Ceftazidime (test code = S 27) Ceftriaxone (test code = S 52) Ertapenem (test code = 38) S Gentamicin (test code = 18) S Levofloxacin (test code = R 22) Meropenem (test code = 34) S Nitrofurantoin (test code = S 23) Piperacillin + Tazobactam S (test code = 29) Tetracycline (test code = S 2) Tobramycin (test code = 25) S Trimethoprim + S Sulfamethoxazole (test code = 47) CULTURE ([facility]) (test code A <10,000 col/mL = 1095) Escherichia col i POCT-GLUCOSE [id number] 11:08:00 Test Item Value Reference Range Interpretation Comments POC-GLUCOSE METER 236 mg/dL 70-110 H TESTED AT [place] [address] ([facility]) (test code = [place] [facility] 1538) [address] BASIC METABOLIC [id number] 05:55:00 Test Item Value Reference Range Interpretation Comments SODIUM (BEAKER) 139 meq/L 136-145 (test code = 381) POTASSIUM (BEAKER) 3.6 meq/L 3.5-5.1 (test code = 379) CHLORIDE (BEAKER) 111 meq/L 98-107 H (test code = 382) CO2 (BEAKER) (test 20 meq/L 22-29 L code = 355) BLOOD UREA NITROGEN 8 mg/dL 7-21 (BEAKER) (test code = 354) CREATININE (BEAKER) 0.74 mg/dL 0.57-1.25 (test code = 358) GLUCOSE RANDOM 114 mg/dL 70-105 H (BEAKER) (test code = 652) CALCIUM (BEAKER) 7.9 mg/dL 8.4-10.2 L (test code = 697) EGFR (BEAKER) (test 81 mL/min/1.73 ESTIMA JULY GFR IS code = 1092) sq m NOT ACCURATE CREATININE CLEARANCE IN PREDICTING GLOMERULAR FILTRATION RATE . ESTIMATED GFR I S NOT APPLICABLE FOR DIALYSIS PATIEN TS. CBC W/PLT COUNT & AUTO [id number] 05:04:00 Test Item Value Reference Range Interpretation Comments WHITE BLOOD CELL COUNT (BEAKER) 3.3 K/ L 3.5-10.5 L (test code = 775) RED BLOOD CELL COUNT (BEAKER) 3.60 M/ L 3.93-5.22 L (test code = 761) HEMOGLOBIN (BEAKER) (test code = 10.2 GM/DL 11.2-15.7 L 410) HEMATOCRIT (BEAKER) (test code = 32.3 % 34.1-44.9 L 411) MEAN CORPUSCULAR VOLUME (BEAKER) 89.7 fL 79.4-94.8 (test code = 753) MEAN CORPUSCULAR HEMOGLOBIN 28.3 pg 25.6-32.2 (BEAKER) (test code = 751) MEAN CORPUSCULAR HEMOGLOBIN CONC 31.6 GM/DL 32.2-35.5 L (BEAKER) (test code = 752) RED CELL DISTRIBUTION WIDTH 14.1 % 11.7-14.4 (BEAKER) (test code = 412) PLATELET COUNT (BEAKER) (test code 58 K/CU MM 150-450 L = 756) MEAN PLATELET VOLUME (BEAKER) 11.5 fL 9.4-12.3 (test code = 754) NUCLEATED RED BLOOD CELLS (BEAKER) 0 /100 WBC 0-0 (test code = 413) NEUTROPHILS RELATIVE PERCENT 61 % (BEAKER) (test code = 429) LYMPHOCYTES RELATIVE PERCENT 26 % (BEAKER) (test code = 430) MONOCYTES RELATIVE PERCENT 11 % (BEAKER) (test code = 431) EOSINOPHILS RELATIVE PERCENT 1 % (BEAKER) (test code = 432) BASOPHILS RELATIVE PERCENT 1 % (BEAKER) (test code = 437) NEUTROPHILS ABSOLUTE COUNT 2.03 K/ L 1.56-6.13 (BEAKER) (test code = 670) LYMPHOCYTES ABSOLUTE COUNT 0.86 K/ L 1.18-3.74 L (BEAKER) (test code = 414) MONOCYTES ABSOLUTE COUNT (BEAKER) 0.35 K/ L 0.24-0.36 (test code = 415) EOSINOPHILS ABSOLUTE COUNT 0.04 K/ L 0.04-0.36 (BEAKER) (test code = 416) BASOPHILS ABSOLUTE COUNT (BEAKER) 0.02 K/ L 0.01-0.08 (test code = 417) IMMATURE GRANULOCYTES-RELATIVE 1 % 0-1 PERCENT (BEAKER) (test code = 2801) SPIN/CONCENTRATION [id number] 03:55:00 Test Item Value Reference Range Interpretation Comments CONCENTRATION CHARGED (BEAKER) (test Done code = 2657) POCT-GLUCOSE [id number] 21:28:00 Test Item Value Reference Range Interpretation Comments POC-GLUCOSE METER 166 mg/dL 70-110 H TESTED AT [place] [address] ([facility]) (test code = [facility] 1538) [address] POCT-GLUCOSE [id number] 17:58:00 Test Item Value Reference Range Interpretation Comments POC-GLUCOSE METER 108 mg/dL 70-110 TESTED AT [place] [address] ([facility]) (test code = [facility] 1538) [address] CBC W/PLT COUNT & AUTO [id number] 13:59:00 Test Item Value Reference Range Interpretation Comments WHITE BLOOD CELL COUNT (BEAKER) 4.8 K/ L 3.5-10.5 (test code = 775) RED BLOOD CELL COUNT (BEAKER) 3.90 M/ L 3.93-5.22 L (test code = 761) HEMOGLOBIN (BEAKER) (test code = 10.9 GM/DL 11.2-15.7 L 410) HEMATOCRIT (BEAKER) (test code = 34.9 % 34.1-44.9 411) MEAN CORPUSCULAR VOLUME (BEAKER) 89.5 fL 79.4-94.8 (test code = 753) MEAN CORPUSCULAR HEMOGLOBIN 27.9 pg 25.6-32.2 (BEAKER) (test code = 751) MEAN CORPUSCULAR HEMOGLOBIN CONC 31.2 GM/DL 32.2-35.5 L (BEAKER) (test code = 752) RED CELL DISTRIBUTION WIDTH 14.3 % 11.7-14.4 (BEAKER) (test code = 412) PLATELET COUNT (BEAKER) (test code 61 K/CU MM 150-450 L = 756) MEAN PLATELET VOLUME (BEAKER) 11.5 fL 9.4-12.3 (test code = 754) NUCLEATED RED BLOOD CELLS (BEAKER) 0 /100 WBC 0-0 (test code = 413) NEUTROPHILS RELATIVE PERCENT 77 % (BEAKER) (test code = 429) LYMPHOCYTES RELATIVE PERCENT 15 % (BEAKER) (test code = 430) MONOCYTES RELATIVE PERCENT 7 % (BEAKER) (test code = 431) EOSINOPHILS RELATIVE PERCENT 1 % (BEAKER) (test code = 432) BASOPHILS RELATIVE PERCENT 0 % (BEAKER) (test code = 437) NEUTROPHILS ABSOLUTE COUNT 3.69 K/ L 1.56-6.13 (BEAKER) (test code = 670) LYMPHOCYTES ABSOLUTE COUNT 0.70 K/ L 1.18-3.74 L (BEAKER) (test code = 414) MONOCYTES ABSOLUTE COUNT (BEAKER) 0.33 K/ L 0.24-0.36 (test code = 415) EOSINOPHILS ABSOLUTE COUNT 0.03 K/ L 0.04-0.36 L (BEAKER) (test code = 416) BASOPHILS ABSOLUTE COUNT (BEAKER) 0.02 K/ L 0.01-0.08 (test code = 417) IMMATURE GRANULOCYTES-RELATIVE 0 % 0-1 PERCENT (BEAKER) (test code = 2801) URINE [id number] 13:12:00 Test Item Value Reference Range Interpretation Comments CULTURE (BEAKER) (test code = See comment 1095) <10,000 col/mL YeastPOCT-GLUCOSE [id number] 12:57:00 Test Item Value Reference Range Interpretation Comments POC-GLUCOSE METER 195 mg/dL 70-110 H TESTED AT [facility] 6720 (BEAKER) (test code = [place] 1538) [address] BASIC METABOLIC [id number] 10:46:00 Test Item Value Reference Range Interpretation Comments SODIUM (BEAKER) 138 meq/L 136-145 (test code = 381) POTASSIUM (BEAKER) 3.4 meq/L 3.5-5.1 L (test code = 379) CHLORIDE (BEAKER) 109 meq/L 98-107 H (test code = 382) CO2 (BEAKER) (test 23 meq/L 22-29 code = 355) BLOOD UREA NITROGEN 10 mg/dL 7-21 ([facility]) (test code = 354) CREATININE ([facility]) 0.79 mg/dL 0.57-1.25 (test code = 358) GLUCOSE RANDOM 112 mg/dL 70-105 H ([facility]) (test code = 652) CALCIUM ([facility]) 7.9 mg/dL 8.4-10.2 L (test code = 697) EGFR ([facility]) (test 76 mL/min/1.73 ESTIMA JULY GFR IS code = 1092) sq m NOT ACCURATE CREATININE CLEARANCE IN PREDICTING GLOMERULAR FILTRATION RATE . ESTIMATED GFR I S NOT APPLICABLE FOR DIALYSIS PATIEN TS. POCT-GLUCOSE [id number] 08:09:00 Test Item Value Reference Range Interpretation Comments POC-GLUCOSE METER 122 mg/dL 70-110 H TESTED AT [place] [address] ([facility]) (test code = [employer] [place] 1538) [address] POCT-GLUCOSE [id number] 06:40:00 Test Item Value Reference Range Interpretation Comments POC-GLUCOSE METER 113 mg/dL 70-110 H TESTED AT [place] [address] ([facility]) (test code = [employer] [place] 1538) [address] POCT-GLUCOSE [id number] 22:09:00 Test Item Value Reference Range Interpretation Comments POC-GLUCOSE METER 160 mg/dL 70-110 H TESTED AT [place] [address] ([facility]) (test code = [employer] [place] 1538) [address] VANCOMYCIN LEVEL, [id number] 20:32:00 Test Item Value Reference Range Interpretation Comments VANCOMYCIN TROUGH ([facility]) (test 4.4 ug/mL 10.0-20.0 L code = 522) POCT-GLUCOSE [id number] 16:55:00 Test Item Value Reference Range Interpretation Comments POC-GLUCOSE METER 231 mg/dL 70-110 H TESTED AT [place] [address] ([facility]) (test code = [employer] [place] 1538) [address] POCT-GLUCOSE [id number] 12:09:00 Test Item Value Reference Range Interpretation Comments POC-GLUCOSE METER 251 mg/dL 70-110 H TESTED AT [place] [address] ([facility]) (test code = [employer] [place] 1538) [address] POCT-GLUCOSE [id number] 09:09:00 Test Item Value Reference Range Interpretation Comments POC-GLUCOSE METER 256 mg/dL 70-110 H TESTED AT [facility] 6720 (BEAKER) (test code = [place] 1538) [address] BASIC METABOLIC [id number] 04:41:00 Test Item Value Reference Range Interpretation Comments SODIUM (BEAKER) 136 meq/L 136-145 (test code = 381) POTASSIUM (BEAKER) 3.7 meq/L 3.5-5.1 (test code = 379) CHLORIDE (BEAKER) 108 meq/L 98-107 H (test code = 382) CO2 (BEAKER) (test 19 meq/L 22-29 L code = 355) BLOOD UREA NITROGEN 17 mg/dL 7-21 (BEAKER) (test code = 354) CREATININE (BEAKER) 0.97 mg/dL 0.57-1.25 (test code = 358) GLUCOSE RANDOM 244 mg/dL 70-105 H (BEAKER) (test code = 652) CALCIUM (BEAKER) 7.7 mg/dL 8.4-10.2 L (test code = 697) EGFR (BEAKER) (test 60 mL/min/1.73 ESTIMA JULY GFR IS code = 1092) sq m NOT ACCURATE CREATININE CLEARANCE IN PREDICTING GLOMERULAR FILTRATION RATE . ESTIMATED GFR I S NOT APPLICABLE FOR DIALYSIS PATIEN TS. URINALYSIS W/ [id number] 04:25:00 Test Item Value Reference Range Interpretation Comments COLOR (BEAKER) (test code = Yellow 470) CLARITY (BEAKER) (test code = Hazy 469) SPECIFIC GRAVITY UA (BEAKER) 1.014 1.001-1.035 (test code = 468) PH UA (BEAKER) (test code = 6.0 5.0-8.0 467) PROTEIN UA (BEAKER) (test code 70 mg/dL Negative A = 464) GLUCOSE UA (BEAKER) (test code 300 mg/dL Negative A = 365) KETONES UA (BEAKER) (test code Negative Negative = 371) BILIRUBIN UA (BEAKER) (test Negative Negative code = 462) BLOOD UA (BEAKER) (test code = Moderate Negative A 461) NITRITE UA (BEAKER) (test code Negative Negative = 465) LEUKOCYTE ESTERASE UA (BEAKER) Large Negative A (test code = 466) UROBILINOGEN UA (BEAKER) (test 0.2 mg/dL 0.2-1.0 code = 463) RBC UA (BEAKER) (test code = 45 /HPF 519) WBC UA (BEAKER) (test code = > /HPF 520) BACTERIA (BEAKER) (test code = Occasional 517) MUCUS (BEAKER) (test code = Rare 1574) SQUAMOUS EPITHELIAL (BEAKER) < /HPF (test code = 516) HYALINE CASTS (BEAKER) (test 1 /LPF code = 514) AMORPHOUS CRYSTALS (BEAKER) Rare (test code = 1584) SOURCE(BEAKER) (test code = Urine, Voided 0932) POCT-GLUCOSE [id number] 21:15:00 Test Item Value Reference Range Interpretation Comments POC-GLUCOSE METER 322 mg/dL 70-110 H TESTED AT [place] [address] ([facility]) (test code = [place] [facility] 1538) [address] LACTIC ACID, VENOUS, WHOLE [id number] 19:10:00 Test Item Value Reference Range Interpretation Comments LACTATE BLOOD VENOUS 3.5 mmol/L 0.5-2.2 H Specime n slightly (2) ([facility]) (test hemolyzed code = 2872) Effective 01/04/2016: Units/Reference Range ChangeNew: 0.5-2.2 mmol/L Previous: 5-20 mg/dLPOCT-GLUCOSE [id number] 18:55:00 Test Item Value Reference Range Interpretation Comments POC-GLUCOSE METER 364 mg/dL 70-110 H TESTED AT [place] [address] ([facility]) (test code = [place] [facility] 1538) [address] POCT-GLUCOSE [id number] 17:34:00 Test Item Value Reference Range Interpretation Comments POC-GLUCOSE METER 395 mg/dL 70-110 H Notified Meghna Hdz MD/VAUGHN ([facility]) (test code = AT [address] 1538) [facility] [address] [place], MEDICAL GENETICS DIRECTOR IN OR/30 MINUTE [id number] 17:18:00Reason for exam:- >cysto with stent placementFINAL REPORT C-ARM FLUOROSCOPY HISTORY: Cystoscopy with stent placement COMPARISON: None FINDINGS: C-arm fluoroscopy was provided in the operating room. No radiologist was present . Fluoroscopy time was reported as 0.28 minutes. [...] not imaged. Signed: Marcella Brooks MDReport Verified Date/Time: 09/07/2017 17:18:12 Reading Location: [facility] C013X Ortho Consult Reading Room HEMOGLOBIN [id number] 16:38:00 Test Item Value Reference Range Interpretation Comments HEMOGLOBIN A1C (BEAKER) (test code = 13.7 % 4.3-6.1 H 368) POCT-GLUCOSE [id number] 16:25:00 Test Item Value Reference Range Interpretation Comments POC-GLUCOSE METER 438 mg/dL 70-110 Notified R Andreina KHALIL/TESTED (BEAKER) (test code = AT [facility] [address] [facility] 1538) [facility] [address] 0 CBC W/PLT COUNT & AUTO [id number] 16:06:00 Test Item Value Reference Range Interpretation Comments WHITE BLOOD CELL COUNT (BEAKER) 10.7 K/ L 3.5-10.5 H (test code = 775) RED BLOOD CELL COUNT (BEAKER) 4.96 M/ L 3.93-5.22 (test code = 761) HEMOGLOBIN (BEAKER) (test code = 13.9 GM/DL 11.2-15.7 410) HEMATOCRIT (BEAKER) (test code = 43.5 % 34.1-44.9 411) MEAN CORPUSCULAR VOLUME (BEAKER) 87.7 fL 79.4-94.8 (test code = 753) MEAN CORPUSCULAR HEMOGLOBIN 28.0 pg 25.6-32.2 (BEAKER) (test code = 751) MEAN CORPUSCULAR HEMOGLOBIN CONC 32.0 GM/DL 32.2-35.5 L (BEAKER) (test code = 752) RED CELL DISTRIBUTION WIDTH 14.1 % 11.7-14.4 (BEAKER) (test code = 412) PLATELET COUNT (BEAKER) (test code 80 K/CU MM 150-450 L = 756) MEAN PLATELET VOLUME (BEAKER) 12.3 fL 9.4-12.3 (test code = 754) NUCLEATED RED BLOOD CELLS (BEAKER) 0 /100 WBC 0-0 (test code = 413) NEUTROPHILS RELATIVE PERCENT 84 % (BEAKER) (test code = 429) LYMPHOCYTES RELATIVE PERCENT 9 % (BEAKER) (test code = 430) MONOCYTES RELATIVE PERCENT 6 % (BEAKER) (test code = 431) EOSINOPHILS RELATIVE PERCENT 0 % (BEAKER) (test code = 432) BASOPHILS RELATIVE PERCENT 0 % (BEAKER) (test code = 437) NEUTROPHILS ABSOLUTE COUNT 8.98 K/ L 1.56-6.13 H (BEAKER) (test code = 670) LYMPHOCYTES ABSOLUTE COUNT 0.96 K/ L 1.18-3.74 L (BEAKER) (test code = 414) MONOCYTES ABSOLUTE COUNT (BEAKER) 0.66 K/ L 0.24-0.36 H (test code = 415) EOSINOPHILS ABSOLUTE COUNT 0.00 K/ L 0.04-0.36 L (BEAKER) (test code = 416) BASOPHILS ABSOLUTE COUNT (BEAKER) 0.02 K/ L 0.01-0.08 (test code = 417) IMMATURE GRANULOCYTES-RELATIVE 1 % 0-1 PERCENT (BEAKER) (test code = 2801) (MANUAL DIFFERENTIAL)2017-09-07 16:06:00 Test Item Value Reference Range Interpretation Comments NEUTROPHILS - REL (DIFF) (BEAKER) 75 % (test code = 1359) LYMPHOCYTES - REL (DIFF) (BEAKER) 7 % (test code = 1360) MONOCYTES - REL (DIFF) (BEAKER) 6 % (test code = 1361) BANDS - REL (DIFF) (BEAKER) (test 12 % 0-10 H code = 1348) NEUTROPHILS - ABS (DIFF) (BEAKER) 8.03 K/ L 1.80-8.00 H (test code = 1365) LYMPHOCYTES - ABS (DIFF) (BEAKER) 0.75 K/ L 1.48-4.50 L (test code = 1366) MONOCYTES - ABS (DIFF) (BEAKER) 0.64 K/ L 0.00-1.30 (test code = 1367) BANDS-ABS (DIFF) (BEAKER) (test 1.3 K/ L 0.0-0.8 H code = 1349) TOTAL COUNTED (BEAKER) (test code = 100 1351) BANDS + SEGMENTED NEUTROPHILS 9.31 (BEAKER) (test code = 1352) VACUOLATED NEUTROPHILS (BEAKER) Present (test code = 483) GIANT PLATELETS (BEAKER) (test code Present = 313) POLYCHROMATOPHILLIC RBCS(BEAKER) 1+ few (test code = 478) BASIC METABOLIC [id number] 15:59:00 Test Item Value Reference Range Interpretation Comments SODIUM (BEAKER) 135 meq/L 136-145 L (test code = 381) POTASSIUM (BEAKER) 4.1 meq/L 3.5-5.1 (test code = 379) CHLORIDE (BEAKER) 104 meq/L 98-107 (test code = 382) CO2 (BEAKER) (test 20 meq/L 22-29 L code = 355) BLOOD UREA NITROGEN 20 mg/dL 7-21 (BEAKER) (test code = 354) CREATININE (BEAKER) 1.20 mg/dL 0.57-1.25 (test code = 358) GLUCOSE RANDOM 403 mg/dL 70-105 HH (BEAKER) (test code = 652) CALCIUM (BEAKER) 8.0 mg/dL 8.4-10.2 L (test code = 697) EGFR (BEAKER) (test 47 mL/min/1.73 ESTIMA JULY GFR IS code = 1092) sq m NOT ACCURATE CREATININE CLEARANCE IN PREDICTING GLOMERULAR FILTRATION RATE . ESTIMATED GFR I S NOT APPLICABLE FOR DIALYSIS PATIEN TS. LACTIC ACID, VENOUS, WHOLE [id number] 15:53:00 Test Item Value Reference Range Interpretation Comments LACTATE BLOOD VENOUS 2.1 mmol/L 0.5-2.2 Specime n moderately (2) (BEAKER) (test hemolyzed code = 2872) Effective 01/04/2016: Units/Reference Range ChangeNew: 0.5-2.2 mmol/L Previous: 5-20 mg/dL
[2022-02-23] MEDS ORDERED: DIPHENHYDRAMINE 50 MG/ML VIAL ONE (15:05)
[2022-02-23] MEDS ORDERED: METOCLOPRAMIDE 10 MG/2mL INJ ONE (15:05)
[2022-02-23] MEDS ORDERED: NA CHLORIDE 0.9% 1,000 ML ONE (15:06)
[2022-02-23] MEDS ORDERED: KETOROLAC 30 MG/ML INJ ONE (15:06)
[2022-02-23 15:16] LABS: Absolute Lymphocytes (CBC) 0.7 K/uL (0.7-4.9); Hematocrit 42.1 % (36.0-45.0)
[2022-02-23 15:21] LABS: Lymphocytes % 14.5 % (15.3-44.8); MPV 9.9 fL (7.6-11.3); RBC Red Blood Cell Count 4.71 M/uL (3.86-4.86)
[2022-02-23 15:23] LABS: Albumin 3.4 g/dL (3.4-5.0); Bilirubin Total 0.8 mg/dL (0.2-1.0); Potassium 3.9 mmol/L (3.5-5.1); Protein, Total 8.3 g/dL (6.4-8.2)
--- NOTE | 2022-02-23 16:16 | ER ---
Nurse's Notes [facility] Name: Pricila Franklin Age: 61 yrs Sex: Female : 1960 Arrival Date: 02/23/2022 Time: 13:08 Bed DIS4 Private MD: Mack Root T Diagnosis: Migraine without aura, not intractable Presentation: 02/23 13:53 Chief complaint: Patient states: MARI, N/V x 2-3 days, BGL in triage 347. Coronavirus jl7 screen: At this time, the client does not indicate any symptoms associated with coronavirus-19. Ebola Screen: No symptoms or risks identified at this time. Initial Sepsis Screen: Does the patient meet any 2 criteria? No. Patient's initial sepsis screen is negative. Does the patient have a suspected source of infection? No. Patient's initial sepsis screen is negative. Risk Assessment: Do you want to hurt yourself or someone else? Patient reports no desire to harm self or others. Onset of symptoms was February 20, 2022. 13:53 Method Of Arrival: Ambulatory jl7 13:53 Acuity: GABBY 3 jl7 Triage Assessment: 13:55 Headache History: The patient has had previous headaches and this one is similar to jl7 previous episodes. General: Appears in no apparent distress. uncomfortable, Behavior is calm, cooperative, appropriate for age. Pain: Complains of pain in MARI Pain currently is 10 out of 10 on a pain scale. Pain began 2-3 days ago. Also complains of nausea. Neuro: Level of Consciousness is awake, alert, obeys commands, Oriented to person, place, time, situation. Historical: - Allergies: 13:55 No Known Allergies; jl7 - PMHx: 13:55 Diabetes - NIDDM; Cirrhosis of liver; stage 3; jl7 - Immunization history:: Client reports receiving the 2nd dose of the Covid vaccine. - Social history:: Smoking status: Patient denies any tobacco usage or history of. Screenin:00 Abuse screen: Denies threats or abuse. Denies injuries from another. Nutritional jl7 screening: No deficits noted. Tuberculosis screening: No symptoms or risk factors identified. Fall Risk IV access (20 points). Total Rose Fall Scale indicates No Risk (0-24 pts). Assessment: 13:56 Reassessment: STACIE Desouza in triage assessing pt. jl7 Vital Signs: 13:53 BP 157 / 94; Pulse 103; Resp 22; Temp 98.2; Pulse Ox 98% ; Weight 79.38 kg; Height 5 jl7 ft. 1 in. (154.94 cm); 13:53 Body Mass Index 33.07 (79.38 kg, 154.94 cm) jl7 Elk Coma Score: 02/24 00:10 Eye Response: spontaneous(4). Verbal Response: oriented(5). Motor Response: obeys kb commands(6). Total: 15. ED Course: 02/23 13:08 Patient arrived in ED. am2 13:08 Mack Root MD is Private Physician. am2 13:44 Lyly Frances FNP-C [facility]. kb 13:44 Darío Paz MD is Attending Physician. kb 13:55 Triage completed. jl7 13:55 Arm band placed on right wrist. Patient placed in waiting room, Patient notified of jl7 wait time. 15:00 Patient has correct armband on for positive identification. jl7 15:00 Initial lab(s) drawn, by ED staff, sent to lab. Inserted saline lock: 22 gauge in right jl7 antecubital area, using aseptic technique. Blood collected. 16:20 Vielka Rajan, RN is Primary Nurse. jl7 16:33 No provider procedures requiring assistance completed. IV discontinued, intact, jl7 bleeding controlled, No redness/swelling at site. Pressure dressing applied. Administered Medications: 05:07 Drug: Reglan (metoCLOPramide) 10 mg Route: IVP; Site: right antecubital; jl7 14:55 Drug: NS 0.9% 1000 ml Route: IV; Rate: 1000 ml; Site: right antecubital; jl7 14:55 Drug: Ketorolac 15 mg Route: IVP; Site: right antecubital; jl7 15:00 Drug: Benadryl (diphenhydrAMINE) 12.5 mg Route: IVP; Site: right antecubital; jl7 Medication: 15:00 VIS not applicable for this client. jl7 Outcome: 16:16 Discharge ordered by . kb 16:33 Discharged to home ambulatory. jl7 16:33 Condition: stable 16:33 Discharge instructions given to patient, Instructed on discharge instructions, follow up and referral plans. Demonstrated understanding of instructions, follow-up care. 16:35 Patient left the ED. jl7 Signatures: Lyly Frances FNP-C FNP-Vielka Simms RN RN jl7 Marguerite Belcher
--- NOTE | 2022-02-23 16:16 | EDPHYS ---
Physician Documentation [facility] Name: Pricila Franklin Age: 61 yrs Sex: Female : 1960 Arrival Date: 02/23/2022 Time: 13:08 Bed DIS4 Private MD: Mack Root T ED Physician Darío Paz HPI: 02/24 00:10 This 61 yrs old Female presents to ER via Ambulatory with complaints of Headache, kb Nausea/Vomiting. 00:10 The patient complains of pain to the top of head. The patient describes the headache as kb constant. Onset: The symptoms/episode began/occurred 3 day(s) ago. Associated signs and symptoms: Pertinent positives: nausea, vomiting. Severity of symptoms: At its worst the pain was moderate, in the emergency department the pain is unchanged. Headache History: The patient has had previous headaches and this one is similar to previous episodes. the symptoms are aggravated by lights, noise. The patient has experienced similar episodes in the past. The patient has not recently seen a physician. Pt reports migraine that started 3 days ago with nausea and vomiting that started 2 days ago. Reports similar headaches in the past, but they have never lasted this long. Also reports history of cirrhosis with mild abd pain. Historical: - Allergies: 02/23 13:55 No Known Allergies; jl7 - PMHx: 13:55 Diabetes - NIDDM; Cirrhosis of liver; stage 3; jl7 - Immunization history:: Client reports receiving the 2nd dose of the Covid vaccine. - Social history:: Smoking status: Patient denies any tobacco usage or history of. ROS: 02/24 00:09 Constitutional: Negative for fever, chills, and weight loss. kb Abdomen/GI: Positive for abdominal pain, nausea and vomiting, Negative for diarrhea, constipation. Neuro: Positive for headache. All other systems are negative. Exam: 00:09 Constitutional: This is a well developed, well nourished patient who is awake, alert, kb and in no acute distress. Head/Face: Normocephalic, atraumatic. Eyes: Pupils equal round and reactive to light, extra-ocular motions intact. Lids and lashes normal. Conjunctiva and sclera are non-icteric and not injected. Cornea within normal limits. Periorbital areas with no swelling, redness, or edema. ENT: Moist Mucous membranes Cardiovascular: Regular rate and rhythm with a normal S1 and S2. No gallops, murmurs, or rubs. No pulse deficits. Respiratory: Respirations even and unlabored. No increased work of breathing. Talking in full sentences Skin: Warm, dry with normal turgor. Normal color. MS/ Extremity: Pulses equal, no cyanosis. Neurovascular intact. Full, normal range of motion. Neuro: Awake and alert, GCS 15, oriented to person, place, time, and situation. Moves all extremities. Normal gait. Psych: Awake, alert, with orientation to person, place and time. Behavior, mood, and affect are within normal limits. 00:09 Abdomen/GI: Inspection: abdomen appears normal, Bowel sounds: normal, Palpation: soft, in all quadrants, mild abdominal tenderness, in the right upper quadrant. Vital Signs: 02/23 13:53 BP 157 / 94; Pulse 103; Resp 22; Temp 98.2; Pulse Ox 98% ; Weight 79.38 kg; Height 5 jl7 ft. 1 in. (154.94 cm); 13:53 Body Mass Index 33.07 (79.38 kg, 154.94 cm) jl7 [place] Score: 02/24 00:10 Eye Response: spontaneous(4). Verbal Response: oriented(5). Motor Response: obeys kb commands(6). Total: 15. MDM: 02/23 13:50 Patient medically screened. kb 02/24 00:10 Data reviewed: vital signs, nurses notes. Data interpreted: Pulse oximetry: on room air kb is 98 %. Interpretation: normal. Counseling: I had a detailed discussion with the patient and/or guardian regarding: the historical points, exam findings, and any diagnostic results supporting the discharge/admit diagnosis, lab results, the need for outpatient follow up, a family practitioner, to return to the emergency department if symptoms worsen or persist or if there are any questions or concerns that arise at home. 00:12 ED course: Migraine improved after treatment. kb 02/23 13:51 Order name: CBC with Diff; Complete Time: 15:24 kb 02/23 13:51 Order name: CMP; Complete Time: 15:43 kb 02/23 13:51 Order name: Lipase; Complete Time: 15:43 kb 02/23 15:16 Order name: Glucose, Ancillary Testing; Complete Time: 15:20 EDMS 06/24 13:51 Order name: IV Start; Complete Time: 15:37 kb 02/23 13:51 Order name: Labs collected and sent; Complete Time: 15:37 kb Administered Medications: 02/23 05:07 Drug: Reglan (metoCLOPramide) 10 mg Route: IVP; Site: right antecubital; jl7 14:55 Drug: NS 0.9% 1000 ml Route: IV; Rate: 1000 ml; Site: right antecubital; jl7 14:55 Drug: Ketorolac 15 mg Route: IVP; Site: right antecubital; jl7 15:00 Drug: Benadryl (diphenhydrAMINE) 12.5 mg Route: IVP; Site: right antecubital; jl7 Disposition Summary: 02/23/22 16:16 Discharge Ordered Location: Home kb Condition: Stable kb Diagnosis - Migraine without aura, not intractable kb Followup: kb - With: Emergency Department - When: As needed - Reason: Worsening of condition Followup: kb - With: Private Physician - When: 2 - 3 days - Reason: Recheck today's complaints, Continuance of care, Re-evaluation by your physician Discharge Instructions: - Discharge Summary Sheet kb - Migraine Headache, [id number] kb Forms: - Medication Reconciliation Form kb - Thank You Letter kb - Antibiotic Education kb - Prescription Opioid Use kb Addendum: 02/26/2022 10:25 Co-signature as Attending Physician, Darío Paz MD. r n Signatures: Dispatcher [employer] EDIN Lyly Frances, ANIMAL CYTOLOGIST-C ANIMAL CYTOLOGIST-Darío Smart MD MD rn Leal, Jahala, RN RN jl7
[2022-02-23] MEDS ORDERED: ACETAMIN/CAFFEINE/BUTALB TAB PO ONE (16:27)
[2022-02-23 16:39] VITALS: BP 157/94; TEMP 98.2; O2SAT 98
== END 2022-02-23 16:35 | disposition home or self-care (01) ==
LOC: ER 13:07
DX: G43.009 Migraine without aura, not intractable, without status migrainosus (principal); E11.9 Type 2 diabetes mellitus without complications
CPT/HCPCS: 85025; 36415; 82947; 83690; 80053; 96375; 96374; 99283; J2765; J1200; J7030

== ENCOUNTER 2022-08-10 16:19 | Emergency (ER) | payer BC, OTHER ==
--- OUTSIDE RECORDS SUMMARY | 2022-08-10 16:24 | XMS REPORT | Continuity of Care Document ---
:1960 Author Organization [facility] t Address [address] [place] [address] Dr. Becker. [address] [place] [address] Care Team Providers Name Role Phone Nuris Primary Care Physician Rachael Attending Clinician Unavailable RUSS YAÑEZ Attending Clinician Unavailable FLASH BREEN Attending Clinician Unavailable Rachael Admitting Clinician Unavailable RUSS YAÑEZ Admitting Clinician Unavailable FLASH BREEN Admitting Clinician Unavailable Payers Payer Name Policy Type Policy Number Effective Date Expiration Date S dmitry [place] [id number] 2020 00:00:00 Problems Condition Condition Condition Status Onset Resolution Last Treating Co mments Source Name Details Category Date Date Treatment Clinician Date Thrombocyt Thrombocyt Disease Active [facility] Anemia Anemia Disease [facility] E coli E coli Disease Active [facility] bacteremia bacteremia 09-12 [facility] Type 2 Type [address] [facility] diabetes diabetes 09-08kes mellitus mellitus 00:00: Medica l without without 00 Center complicati complicati on, on, without without long-term long-term current current use of use of insulin insulin Pyelonephr Pyelonephr Disease Active [facility]is itis [facility] Hydronephr Hydronephr Disease Active [facility] osis with osis with 1-07 [facility] ureteropel ureteropel 00:00: Me dical riley riley 00 Center junction junction (UPJ) (UPJ) obstructio obstructio n n Allergies, Adverse Reactions, Alerts This patient has no known allergies or adverse reactions. Social History Social Habit Start Date Stop Date Quantity Comments Source Alcohol intake 2017-10-02 2017-10-[address] [facility] Nina es 00:00:00 00:00:00 non-drinker of Medical Ce nter alcohol (finding) Tobacco use and 2017-09-07 2017-09-[address] [facility] kes exposure 00:00:00 00:00:00 [facility] Sex Assigned At [address] [facility] 00:00:00 00:[facility]:00 [facility] Center Smoking Status Start Date Stop Date Source Never [facility] Medications Ordered Filled Start Stop Current Ordering Indication Dosage Frequency Signature Comments Components Source Medication Medication Date Date Medication? Clinician (SIG) Name Name estradiol Yes .5mg QD Take 0.[address] (ESTRACE) 1-31 mg by [facility] 0.5 MG 15:20: mouth Medical tablet 29 daily. Center HYDROcodone Yes 1{tbl} Take [address] -acetaminop 1-31 tablet by Nina oquendo (NORCO 15:20: mouth Medica l 5-325) 29 every 6 Center 5-325 mg (six) per tablet hours as needed for Pain. tamsulosin Yes .4mg QD Take 1 [facility] (FLOMAX) 1-13 capsule [facility] 0.4 mg Cp24 00:00: (0.4 mg Med ical 24 hr 00 total) by Center capsule mouth daily. Procedures This patient has no known procedures. Encounters Start End Encounter Admission Attending Care Care Encounter Source Date/Time Date/Time Type Type Clinicians Facility Department ID 2022-01-24 2022-01-24 Outpatient _[facility]_ PRIV PRIV [id number] [facility] 09:16:00 09:16:00 Charan [id number] Medic al 2022-01-24 2022-01-24 Outpatient _[facility] PRIV PRIV [id number] [facility] 09:16:00 09:16:00 Charan [id number] Medic al 2022-01-24 2022-01-24 Outpatient _[facility]_ PRIV PRIV [id number] [facility] 09:16:00 09:16:00 Charan [id number] Medic al Results Test Description Test Time Test Comments Results Result Comments Source AFB CULTURE + SMEAR 2017-10-24 04:25:00 Test Item Value Reference Range Interpretation Comme nts CULTURE (BEAKER) (test code = 1095) No acid-fast bacilli isolated i n 42 days AFB SMEAR (BEAKER) (test code = 994) No acid fast bacilli seen FUNGUS CULTURE + [id number] 13:36:00 Test Item Value Reference Range Interpretation Comments CULTURE (BEAKER) (test No fungus isolated in code = 1095) 28 days FUNGUS SMEAR (BEAKER) No fungi seen (test code = 1406) [place], DAIRY SCIENTIST IN OR/30 MINUTE [id number] 15:53:00Reason for exam:- >NephrolithiasIs the patient ?->NoWhen was patient's last menstrual cycle?->10/02/INAL REPORT TECHNIQUE: Fluoroscopic images from urologic procedure were submitted for interpretation. INDICATION: 57-year-old woman with nephrolithiasis. COMPARISON: None. FINDINGS :Single frontal image shows unilateral ureteral stent in place. Fluoroscopy time: 52 secondsNumber of images: 1 IMPRESSION:Fluoroscopic images from urologic procedure as detailed above, not obtained bythe undersigned. Please refer to operative note for more details of the procedure and findings. Signed: Fay Irwin MDReport Verified Date/Time: 10/02/2017 15:53:40 Reading Location: [address] Radiology Reading Room POCT-GLUCOSE [id number] 10:54:00 Test Item Value Reference Range Interpretation Comments POC-GLUCOSE METER 145 mg/dL 70-110 H TESTED AT [facility] 6720 (BEAKER) (test code = [place] 1538) [address] URINE [id number] 10:33:00 Test Item Value Reference Range Interpretation Comments CULTURE (BEAKER) (test code = 1095) Ampicillin (test code = S 26) Linezolid (test code = S 40) Nitrofurantoin (test code S = 23) Tetracycline (test code = S 2) Vancomycin (test code = S 13) CULTURE (BEAKER) (test A 10-19 ,000 col/mL code = 1095) Enterococcus sp ecies <10,000 col/mL Gram Negative rods<10,000 col/mL BETA HEMOLYTIC STREPTOCOCCUSURINALYSIS W/ [id number] 15:50:00 Test Item Value Reference Range Interpretation [...] code = 516) SOURCE(BEAKER) (test code = 3725) BASIC METABOLIC [id number] 14:43:00 Test Item Value Reference Range Interpretation [...] S NOT APPLICABLE FOR DIALYSIS PATIEN TS. [id number] 14:28:00 Test Item Value Reference Range Interpretation Comments PARTIAL THROMBOPLASTIN TIME 30.8 seconds 22.5-36.0 (BEAKER) (test code = 760) PROTHROMBIN TIME/[id number] 14:27:00 Test Item Value Reference Range Interpretation Comments PROTIME (BEAKER) (test code = 15.9 seconds 11.7-14.7 H 759) INR (BEAKER) (test code = 370) 1.3 <=5.9 RECOMMENDED COUMADIN/WARFARIN INR THERAPY RANGESSTANDARD DOSE: 2.0 - 3.0 Includes: PROPHYLAXIS for venous thrombosis, systemic embolization; TREATMENT for venous thrombosis and/or pulmonary embolus.HIGH RISK: Target INR is 2.5-3.5 for patients with mechanical heart valves.CBC W/PLT COUNT & AUTO [id number] 14:22:00 Test Item Value Reference Range Interpretation [...] (test code = 2801) RAD, CHEST, 2 [id number] 13:40:00Reason for exam:->Pre admissionIs the patient ?->NoFINAL REPORT Chest, PA and lateral. History: Preadmission testing. Nephrolithiasis. Comparison: None available. Discussion: The cardiomediastinal silhouette and pulmonary vasculature are within normal limits. The lungs are clear without evidence of consolidation or effusion. Thereare no acute osseous abnormalities. The soft tissues are unremarkable. IMPRESSION: No acute cardiopulmonary abnormality. Signed: Jia Chahal MDReport Verified Date/Time: 09/26/2017 13:40:29 ReadingLocation: [facility]th [facility] Radiology Reading Room POCT-GLUCOSE [id number] 10:17:00 Test Item Value Reference Range Interpretation Comments POC-GLUCOSE METER 237 mg/dL 70-110 H TESTED AT [facility] 6720 (BEAKER) (test code = [place] 1538) [address] CBC (HEMOGRAM ONLY)2017-09-14 06:38:00 Test Item Value [...] (BEAKER) (test code = 413) BASIC METABOLIC [id number] 06:06:00 Test Item Value Reference Range Interpretation Comments SODIUM (BEAKER) 138 meq/L 136-145 (test code = 381) POTASSIUM (BEAKER) 3.5 meq/L 3.5-5.1 (test code = 379) CHLORIDE (BEAKER) 108 meq/L 98-107 H (test code = 382) CO2 (BEAKER) (test 22 meq/L 22-29 code = 355) BLOOD UREA NITROGEN 6 mg/dL 7-21 L ([facility]) (test code = 354) CREATININE ([facility]) 0.75 mg/dL 0.57-1.25 (test code = 358) GLUCOSE RANDOM 147 mg/dL 70-105 H ([facility]) (test code = 652) CALCIUM ([facility]) 8.3 mg/dL 8.4-10.2 L (test code = 697) EGFR ([facility]) (test 80 mL/min/1.73 ESTIMA JULY GFR IS code = 1092) sq m NOT ACCURATE CREATININE CLEARANCE IN PREDICTING GLOMERULAR FILTRATION RATE . ESTIMATED GFR I S NOT APPLICABLE FOR DIALYSIS PATIEN TS. POCT-GLUCOSE [id number] 21:17:00 Test Item Value Reference Range Interpretation Comments POC-GLUCOSE METER 169 mg/dL 70-110 H TESTED AT [place] [address] ([facility]) (test code = DENY [place] [facility] 1538) [address] POCT-GLUCOSE [id number] 18:12:00 Test Item Value Reference Range Interpretation Comments POC-GLUCOSE METER 135 mg/dL 70-110 H TESTED AT [place] [address] ([facility]) (test code = DEN[place] [facility] 1538) [address] U/S, ABDOMINAL, [id number] 17:48:00Reason for exam:->evaluate for splenomegaly in patient with TCPFINAL REPORT Abdominal Ultrasound Clinical Diagnosis: Evaluate for splenomegalyComparison: No comparison at this institution Technique: Multiple transaxial and longitudinal imageswere obtained through the abdomen with real time ultrasonography. Five MHz transducer was utilized. 87 images were submitted for interpretation. Report:Liver: The liver measures 15.2 cm in the right midaxillary line. There are no focal masses. The echogenicity is heterogeneous.Spleen: The spleen measur es 13.1 cm. in the left mid axillary [...] seen segments demonstrate no abnormality. Maximum transverse dimension of aorta proximally is 2.0 cm. Impression:Mild hepatosplenomegaly.Possible lower pole nonobstructing left renal stone. Signed: Soumya Wooten MDReport Verified Date/Time: 09/13/2017 17:48:27 Reading Location: [facility] P006J Ultrasound Reading Room PERIPHERAL BLOOD SMEAR - PATHOLOGIST [id number] 14:08:00 Test Item Value Reference Range Interpretation Comments PERIPHERAL SMR Mild thrombocytopenia REVIEW ([facility]) with occasional large (test code = 2640) forms. No increase in schistocytes. No blasts detected. [id number] Penny Malone MD 2 ([facility]) (test (electronic signature) code = 2849) POCT-GLUCOSE [id number] 13:49:00 Test Item Value Reference Range Interpretation Comments POC-GLUCOSE METER 105 mg/dL 70-110 TESTED AT [facility] 6720 ([facility]) (test code = [place] 1538) [address] BLOOD [id number] 10:01:00 Test Item Value Reference Range Interpretation Comments CULTURE ([facility]) (test No growth in 5 days code = 1095) POCT-GLUCOSE [id number] 08:46:00 Test Item Value Reference Range Interpretation Comments POC-GLUCOSE METER 116 mg/dL 70-110 H TESTED AT [place] [address] ([facility]) (test code = [place] 1538) [address] CBC W/PLT COUNT & AUTO [id number] 07:54:00 Test Item Value Reference Range Interpretation Comments WHITE BLOOD CELL COUNT ([facility]) 4.7 K/ L 3.5-10.5 (test code = 775) RED BLOOD CELL COUNT ([facility]) 3.66 M/ L 3.93-5.22 L (test code [...] code = Present 1678) VITAMIN B12 AND [id number] 07:24:00 Test Item Value Reference Range Interpretation Comments VITAMIN B12 (BEAKER) (test code = 362 pg/mL 213-816 774) FOLATE (BEAKER) (test code = 362) 14.2 ng/mL >=7.0 RETICULOCYTE [id number] 06:40:00 Test Item Value Reference Range Interpretation Comments RETICULOCYTE COUNT PCT (BEAKER) (test 1.9 % 0.5-1.7 H code = 575) LACTATE DEHYDROGENASE (LDH)2017-09-13 06:27:00 Test Item Value Reference Range Interpretation Comments LACTATE DEHYDROGENASE (BEAKER) (test 201 U/L 125-220 code = 635) COMPREHENSIVE METABOLIC [id number] 06:27:00 Test Item Value Reference Range Interpretation [...] APPLICABLE FOR DIALYSIS PATIEN TS. HEPATITIS C [id number] 06:23:00 Test Item Value Reference Range Interpretation Comments HEPATITIS C ANTIBODY (BEAKER) Nonreactive Nonreactive (test code = 367) HIV-1 ANTIGEN WITH HIV-1/2 [id number] 06:23:00 Test Item Value Reference Range Interpretation Comments HIV-1 ANTIGEN WITH HIV 1\T\2 Nonreactive Nonreactive ANTIBODY (2) (BEAKER) (test code = 2586) [id number] 06:02:00 Test Item Value Reference Range Interpretation Comments HAPTOGLOBIN (BEAKER) (test code = 196 mg/dL 14-258 366) BLOOD [id number] 23:00:00 Test Item Value Reference Range Interpretation Comments CULTURE ([facility]) (test No growth in 5 days code = 1095) POCT-GLUCOSE [id number] 21:51:00 Test Item Value Reference Range Interpretation Comments POC-GLUCOSE METER 225 mg/dL 70-110 H TESTED AT [place] [address] ([facility]) (test code = [facility] 1538) [address] POCT-GLUCOSE [id number] 17:29:00 Test Item Value Reference Range Interpretation Comments POC-GLUCOSE METER 132 mg/dL 70-110 H TESTED AT [place] [address] ([facility]) (test code = [facility] 1538) [address] CBC W/PLT COUNT & AUTO [id number] 15:28:00 Test Item Value Reference Range Interpretation [...] (BEAKER) (test code = Normal 762) POCT-GLUCOSE [id number] 12:35:00 Test Item Value Reference Range Interpretation Comments POC-GLUCOSE METER 154 mg/dL 70-110 H TESTED AT [facility] 67[facility] ([facility] = [facility] [place] [facility] 1538) [address] POCT-GLUCOSE [id number] 09:43:00 Test Item Value Reference Range Interpretation Comments POC-GLUCOSE METER 108 mg/dL 70-110 TESTED AT [facility] 6720 (BEAKER) (test code = [place] [facility] 1538) [address] BASIC METABOLIC [id number] 05:11:00 Test Item Value Reference Range Interpretation [...] NOT APPLICABLE FOR DIALYSIS PATIEN TS. POCT-GLUCOSE [id number] 22:14:00 Test Item Value Reference Range Interpretation Comments POC-GLUCOSE METER 112 mg/dL 70-110 H TESTED AT [facility] 6720 (BEAKER) (test code = [place] [facility] 1538) [address] POCT-GLUCOSE [id number] 18:30:00 Test Item Value Reference Range Interpretation Comments POC-GLUCOSE METER 98 mg/dL 70-110 TESTED AT [facility] 6720 (BEAKER) (test code = [place] [facility] [address] 1538) CBC W/PLT COUNT & AUTO [id number] 14:59:00 Test Item Value Reference Range Interpretation [...] Comments TOTAL COUNTED (BEAKER) (test code = 5300) POCT-GLUCOSE [id number] 13:51:00 Test Item Value Reference Range Interpretation Comments POC-GLUCOSE METER 101 mg/dL 70-110 TESTED AT [facility] 6720 ([facility]) (test code = [place] 1538) [address] POCT-GLUCOSE [id number] 08:29:00 Test Item Value Reference Range Interpretation Comments POC-GLUCOSE METER 129 mg/dL 70-110 H TESTED AT [facility] 6720 ([facility]) (test code = [place] 1538) [address] VANCOMYCIN LEVEL, [id number] 05:47:00 Test Item Value Reference Range Interpretation Comments VANCOMYCIN TROUGH (BEAKER) (test 11.1 ug/mL 10.0-20.0 code = 522) Please draw 30 minutes prior to vancomycin due time. Do not administer if vancomycin trough is >20 mcg/mL. Thank you!BASIC METABOLIC [id number] 05:37:00 Test Item Value Reference Range Interpretation [...] NOT APPLICABLE FOR DIALYSIS PATIEN TS. POCT-GLUCOSE [id number] 21:36:00 Test Item Value Reference Range Interpretation Comments POC-GLUCOSE METER 145 mg/dL 70-110 H TESTED AT [place] [address] ([facility]) (test code = [place] 1538) [address] POCT-GLUCOSE [id number] 17:44:00 Test Item Value Reference Range Interpretation Comments POC-GLUCOSE METER 178 mg/dL 70-110 H TESTED AT [place] [address] ([facility]) (test code = [place] 1538) [address] POCT-GLUCOSE [id number] 13:00:00 Test Item Value Reference Range Interpretation Comments POC-GLUCOSE METER 162 mg/dL 70-110 H TESTED AT [place] [address] ([facility]) (test code = [place] 1538) [address] URINE [id number] 12:41:00 Test Item Value Reference Range Interpretation Comments CULTURE ([facility]) (test code = 1095) Amikacin (test [...] S Sulfamethoxazole (test code = 47) CULTURE ([facility]) (test code A <10,000 col/mL = 1095) Escherichia col i POCT-GLUCOSE [id number] 11:08:00 Test Item Value Reference Range Interpretation Comments POC-GLUCOSE METER 236 mg/dL 70-110 H TESTED AT [place] [address] ([facility]) (test code = [place] 1538) [address] BASIC METABOLIC [id number] 05:55:00 Test Item Value Reference Range Interpretation Comments SODIUM ([facility]) 139 meq/L 136-145 (test code = 381) POTASSIUM (AKER) 3.6 meq/L 3.5-5.1 (test code = 379) [...] PATIEN TS. CBC W/PLT COUNT & AUTO [id number] 05:04:00 Test Item Value Reference Range Interpretation [...] PERCENT (BEAKER) (test code = 2801) SPIN/CONCENTRATION [id number] 03:55:00 Test Item Value Reference Range Interpretation Comments CONCENTRATION CHARGED (BEAKER) (test Done code = 2657) POCT-GLUCOSE [id number] 21:28:00 Test Item Value Reference Range Interpretation Comments POC-GLUCOSE METER 166 mg/dL 70-110 H TESTED AT [place] [address] ([facility]) (test code = [facility] 1538) [address] POCT-GLUCOSE [id number] 17:58:00 Test Item Value Reference Range Interpretation Comments POC-GLUCOSE METER 108 mg/dL 70-110 TESTED AT [place] [address] ([facility]) (test code = [facility] 1538) [address] CBC W/PLT COUNT & AUTO [id number] 13:59:00 Test Item Value Reference Range Interpretation [...] PERCENT (BEAKER) (test code = 2801) URINE [id number] 13:12:00 Test Item Value Reference Range Interpretation Comments CULTURE (BEAKER) (test code = See comment 1095) <10,000 col/mL YeastPOCT-GLUCOSE [id number] 12:57:00 Test Item Value Reference Range Interpretation Comments POC-GLUCOSE METER 195 mg/dL 70-110 H TESTED AT [place] [address] ([facility]) (test code = [place] [facility] [facility] 1538) [address] BASIC METABOLIC [id number] 10:46:00 Test Item Value Reference Range Interpretation Comments SODIUM (BEAKER) 138 meq/L 136-145 (test code = 381) POTASSIUM (BEAKER) 3.4 meq/L 3.5-5.1 L (test code = 379) CHLORIDE (BEAKER) 109 meq/L 98-107 H (test code = 382) CO2 (BEAKER) (test 23 meq/L 22-29 code = 355) BLOOD UREA NITROGEN 10 mg/dL 7-21 (BEAKER) (test code = 354) CREATININE (BEAKER) 0.79 mg/dL 0.57-1.25 (test code = 358) GLUCOSE RANDOM 112 mg/dL 70-105 H ([facility]) (test code = 652) CALCIUM (BEAKER) 7.9 mg/dL 8.4-10.2 L (test code = 697) EGFR ([facility]) (test 76 mL/min/1.73 ESTIMA JULY GFR IS code = 1092) sq m NOT ACCURATE CREATININE CLEARANCE IN PREDICTING GLOMERULAR FILTRATION RATE . ESTIMATED GFR I S NOT APPLICABLE FOR DIALYSIS PATIEN TS. POCT-GLUCOSE [id number] 08:09:00 Test Item Value Reference Range Interpretation Comments POC-GLUCOSE METER 122 mg/dL 70-110 H TESTED AT [place] [address] ([facility]) (test code = [facility] 1538) [address] POCT-GLUCOSE [id number] 06:40:00 Test Item Value Reference Range Interpretation Comments POC-GLUCOSE METER 113 mg/dL 70-110 H TESTED AT [place] [address] ([facility]) (test code = [facility] 1538) [address] POCT-GLUCOSE [id number] 22:09:00 Test Item Value Reference Range Interpretation Comments POC-GLUCOSE METER 160 mg/dL 70-110 H TESTED AT [place] [address] ([facility]) (test code = [facility] 1538) [address] VANCOMYCIN LEVEL, [id number] 20:32:00 Test Item Value Reference Range Interpretation Comments VANCOMYCIN TROUGH ([facility]) (test 4.4 ug/mL 10.0-20.0 L code = 522) POCT-GLUCOSE [id number] 16:55:00 Test Item Value Reference Range Interpretation Comments POC-GLUCOSE METER 231 mg/dL 70-110 H TESTED AT [facility] 6720 (BEAKER) (test code = DEN[place] [facility] 1538) [address] POCT-GLUCOSE [id number] 12:09:00 Test Item Value Reference Range Interpretation Comments POC-GLUCOSE METER 251 mg/dL 70-110 H TESTED AT [facility] 6720 (BEAKER) (test code = [place] [facility] 1538) [address] POCT-GLUCOSE [id number] 09:09:00 Test Item Value Reference Range Interpretation Comments POC-GLUCOSE METER 256 mg/dL 70-110 H TESTED AT [facility] 67 (BEAKER) (test code = [place] [facility] 1538) [address] BASIC METABOLIC [id number] 04:41:00 Test Item Value Reference Range Interpretation [...] APPLICABLE FOR DIALYSIS PATIEN TS. URINALYSIS W/ [id number] 04:25:00 Test Item Value Reference Range Interpretation [...] 1584) SOURCE(BEAKER) (test code = Urine, Voided 1521) POCT-GLUCOSE [id number] 21:15:00 Test Item Value Reference Range Interpretation Comments POC-GLUCOSE METER 322 mg/dL 70-110 H TESTED AT [place] [address] ([facility]) (test code = [facility] 1538) [address] LACTIC ACID, VENOUS, WHOLE [id number] 19:10:00 Test Item Value Reference Range Interpretation Comments LACTATE BLOOD VENOUS 3.5 mmol/L 0.5-2.2 H Specime n slightly (2) (BEAKER) (test hemolyzed code = 2872) Effective 01/04/2016: Units/Reference Range ChangeNew: 0.5-2.2 mmol/L Previous: 5- 20 mg/dLPOCT-GLUCOSE [id number] 18:55:00 Test Item Value Reference Range Interpretation Comments POC-GLUCOSE METER 364 mg/dL 70-110 H TESTED AT [place] [address] ([facility]) (test code = [facility] 1538) [address] POCT-GLUCOSE [id number] 17:34:00 Test Item Value Reference Range Interpretation Comments POC-GLUCOSE METER 395 mg/dL 70-110 H Notified Meghna Hdz MD/VAUGHN (RICHIE) (test code = AT [place] [address]) [facility] [address] [place], DAIRY SCIENTIST IN OR/30 MINUTE [id number] 17:18:00Reason for exam:- >cysto with stent placementFINAL REPORT C-ARM FLUOROSCOPY HISTORY: Cystoscopy with stent placement COMPARISON: None FINDINGS: C-arm fluoroscopy was provided in the operating room. No radiologist was present.Fluoroscopy time was reported as 0.28 minutes. It is assumed that these are frontal images and that the side which is imaged is the left. 11 images were submitted for interpretation. Initial images show contrast in mildly dilated left ureter and renal collecting system. Subsequent images a wire in theleft upper urinary tract. The final image shows the proximal portion of the double J ureteral stent with its loop in the region of the renal pelvis. The distal portion of the stent is not imaged. Signed: Marcella Brooks MDReport Verified Date/Time: 09/07/2017 17:18:12 Reading Location: [address] OrthoConsult Reading Room GLOBIN [id number] 16:38:00 Test Item Value Reference Range Interpretation Comments HEMOGLOBIN A1C ([facility]) (test code = 13.7 % 4.3-6.1 H 368) POCT-GLUCOSE [id number] 16:25:00 Test Item Value Reference Range Interpretation Comments POC-GLUCOSE METER 438 mg/dL 70-110 HH Notified Meghna Hdz MD/VAUGHN (RICHIE) (test code = AT [facility] 6720 [facility] 1538) [facility] 7703 0 CBC W/PLT COUNT & AUTO [id number] 16:06:00 Test Item Value Reference Range Interpretation [...] few (test code = 478) BASIC METABOLIC [id number] 15:59:00 Test Item Value Reference Range Interpretation [...] DIALYSIS PATIEN TS. LACTIC ACID, VENOUS, WHOLE [id number] 15:53:00 Test Item Value Reference Range Interpretation Comments LACTATE BLOOD VENOUS 2.1 mmol/L 0.5-2.2 Specime n moderately (2) (BEAKER) (test hemolyzed code = 2872) Effective 01/04/2016: Units/Reference Range ChangeNew: 0.5-2.2 mmol/L Previous: 5- 20 mg/dL
[2022-08-10] MEDS ORDERED: ONDANSETRON 4 MG/2 ML VIAL ONE ×2 (17:06→20:41)
[2022-08-10] MEDS ORDERED: MORPHINE 4 MG/ML SYR ONE (17:06)
[2022-08-10 17:18] LABS: Absolute Lymphocytes (CBC) 0.9 K/uL (0.7-4.9); Hematocrit 41.5 % (36.0-45.0); Lymphocytes % 21.2 % (15.3-44.8); MCV 89.6 fL (80-100); RBC Red Blood Cell Count 4.63 M/uL (3.86-4.86)
--- NOTE | 2022-08-10 17:24 | RAD REPORT ---
EXAM DESCRIPTION: RAD - Chest Single View - 08/10/2022 5:13 pm CLINICAL HISTORY: syncope, trauma COMPARISON: None TECHNIQUE: AP portable chest image was obtained 08/10/2022 5:13 pm . FINDINGS: Lung volumes are low. No failure, infiltrate, edema or acute lung process suspected. Cardi omediastinal silhouette within normal range for shallow inspiration portable imaging. No measurable p leural effusion and no pneumothorax. No gross rib abnormality. Clavicles are intact with normal AC gita ints. Fracture the proximal humeral head is present and detailed in separate report. No acute aortic findings suspected. IMPRESSION: No acute cardiopulmonary process. Proximal left humerus fracture is separately detailed.
[2022-08-10 17:25] LABS: Protime INR 1.1
--- NOTE | 2022-08-10 17:25 | RAD REPORT ---
EXAM DESCRIPTION: RAD - Humerus Left - 08/10/2022 5:13 pm CLINICAL HISTORY: Left shoulder trauma, pain COMPARISON: None. FINDINGS: An oblique fracture traverses the greater tuberosity of the proximal left humerus. A trans verse fracture the cervical neck is suspected as well. No distraction or angulation deformity. There is probably minimal impaction along the surgical neck fracture line. No pathologic changes are presen t. No dislocation of the humeral head. AC joint is intact. There is no dislocation or periosteal reactio n noted. No foreign body or other soft tissue abnormality. IMPRESSION: Proximal left humerus surgical neck and greater tuberosity fractures as detailed.
[2022-08-10 17:40] LABS: Albumin 3.5 g/dL (3.4-5.0); Bilirubin Direct 0.2 mg/dL (0-0.2); Bilirubin Total 0.5 mg/dL (0.2-1.0); Magnesium 1.6 mg/dL (1.6-2.4); Potassium 3.1 mmol/L (3.5-5.1); Protein, Total 8.4 g/dL (6.4-8.2); Troponin High Sensitivity 9.4 pg/mL (<58.9)
[2022-08-10 17:52] LABS: Blood Morphology Comment NOTED (NOT SEEN); Platelet Estimate DECR; White Blood Cell Scan OK (OK)
--- NOTE | 2022-08-10 18:28 | RAD REPORT ---
EXAM DESCRIPTION: CT - Head C Spine Cap W Homar - 08/10/2022 6:01 pm CLINICAL HISTORY: syncope, fall, head, neck, chest and abdomen pain COMPARISON: No comparisons TECHNIQUE: Axial [address] head images were obtained. Axial [address] cervical spine images were obtaine d with sagittal and coronal reconstruction images reviewed. During dynamic enhancement of 100mL non-i onic contrast, axial 5 mm images of the chest, abdomen and pelvis were obtained. Biphasic technique p erformed of the abdomen and pelvis. Oral contrast: None All CT scans are performed using dose optimization technique as appropriate and may include automated exposure control or mA/KV adjustment according to patient size. FINDINGS: No intracranial hemorrhage, mass or edema. No midline shift or abnormal fluid collection. Ventricles are normal. Mastoid air cells are clear. No paranasal sinus air-fluid levels. Right-sided sphenoid sinus mucosal thickening present. No skull fracture. CT cervical spine imaging shows normal height. Normal alignment of the vertebrae. No significant disc space narrowing. Prominent right-sided uncovertebral joint hypertrophy at C4-5 causes significant marky ny foraminal stenosis. At C5-6 there is pronounced posterior endplate spurring with bridging ossifica tion in the right-side central canal extending into the exit foramen has uncovertebral joint hypertro phy. There is moderately severe left-sided and severe right-sided foraminal stenosis. The posterior b re bridging ossification spanning C5-6 causes critical central spinal stenosis down to 5-6 mm. The c orner subtly flattened through this region. No paraspinal mass or hematoma seen. Cord ends soft tissu e central canal detail is inherently limited. Concerns for traumatic disc herniation or traumatic cor d injury can be further addressed with MR imaging. CT chest shows no pneumothorax, pulmonary contusion or pleural fluid collection. No mediastinal hemat jac and the aorta and pulmonary arteries are unremarkable. No chest will mass or abnormal axillary fi nding. No displaced or nondisplaced rib fracture is identified. Cirrhotic liver changes are present with prominent left lobe and nodular capsule contour. No focal le angeli identifiable. Cholecystectomy clips are present. No abnormal biliary tree dilatation. Spleen is prominent. Several dilated veins are present in the splenic hilum. No acute pancreatic process. Kidneys have lobulated contours. Nonobstructing calyx calculi present on the right. No hydronephrosis or acute renal process. No urinary bladder abnormality seen. Very minimal hiatal hernia is present. No acute gastric finding seen. Duodenum is unremarkable. There are multiple proximal small bowel loops that are prominent, borderline for dilation. Moderately larg e stool volume fills the rectosigmoid colon. An acute colon origin process is not identified. No susp icion for appendicitis. No free air or pneumatosis. No measurable ascites. There is a mild nonspecific congestion to the mes enteric fat. Proximal superior mesenteric and celiac arteries enhance normally. No vertebral body compression fracture. Proximal left humerus fracture without dislocation of the hum eral head. Greater tuberosity is fractured and there is a transverse fracture of the surgical neck th at is minimally impacted along the lateral margin. No pathologic component. No fracture of the bony p stacey. No significant vascular finding. IMPRESSION: No intracranial abnormality. Minimal mucosal thickening in the right-side sphenoid sinus . No fracture or acute vertebral body finding. Patient has very pronounced degenerative change and bony hypertrophy at C5-6 causing critical central spinal stenosis down to 5-6 mm and certainly causing co rd flattening. No acute chest finding. Left humerus surgical neck and greater tuberosity fracture present as detaile d above and on separate left shoulder report. Cirrhotic liver changes with no acute abdominal or pelvic finding.
--- NOTE | 2022-08-10 18:30 | RAD REPORT ---
EXAM DESCRIPTION: CT - Facial Bones W/ Mpr - 08/10/2022 6:06 pm CLINICAL HISTORY: Fall, facial trauma COMPARISON: None. TECHNIQUE: Axial 2 millimeter thick images of the facial bones were obtained with sagittal and coron al reconstruction imaging. All CT scans are performed using dose optimization technique as appropriate and may include automated exposure control or mA/KV adjustment according to patient size. FINDINGS: No mandible fracture seen. Condyles of the mandible are normally positioned. Mastoid air c ells and middle ears are clear with no skullbase fracture. No facial bone fractures are identified. Left deviation of the mid nasal septum is present. Nasal bon es are within range of normal. Mucosal thickening fills the right side of the sphenoid sinus. This is probably chronic sinusitis. No air or foreign body in the soft tissues. Nasal soft tissues appear pr ominent and there could be localized edema or contusion. IMPRESSION: Soft tissue swelling of the nose is suspected without foreign body. No displaced nasal b one fracture present. No other evidence for facial bone fracture. Chronic right-sided sphenoid sinusitis.
[2022-08-10] MEDS ORDERED: NA CHLORIDE 0.9% 500 ML ONE (20:05)
[2022-08-10] MEDS ORDERED: HYDROMORPHONE HCL 1 MG/ML INJ ONE (20:05)
--- NOTE | 2022-08-10 21:03 | EDPHYS ---
Physician Documentation [facility] Name: Pricila Franklin Age: 62 yrs Sex: Female : 1960 Arrival Date: 08/10/2022 Time: 16:35 Bed 8 Private MD: ED Physician Myke Torres HPI: 08/10 16:45 This 62 yrs old Female presents to ER via EMS with complaints of Syncope. cp 16:45 The patient has experienced syncope, lost consciousness. Onset: The symptoms/episode cp began/occurred just prior to arrival. Duration: This was a single episode, that lasted an unknown period of time, now resolved. Associated injury: Left lower extremity: left shoulder. 16:45 Patient brought to ED by EMS after reported syncopal episode while standing on cp bleachers at local school gym. Patient with history of DM and reports blood sugar was low. Started having lightheartedness and lost consciousness. Patient reportedly fell about 3 ft high from bleachers. EMS reports blood glucose level of 54. Given D10 IV en route. Historical: - Allergies: 17:00 No Known Allergies; ph - Home Meds: 17:00 estradiol Oral [Active]; ph - PMHx: 17:00 cirrhosis of liver; stage 3; Diabetes - NIDDM; ph - Immunization history:: Adult Immunizations unknown. - Immunization history: Last tetanus immunization: unknown. - Social history:: Smoking status: Patient denies any tobacco usage or history of. ROS: 16:50 Constitutional: Negative for body aches, chills, fever, poor PO intake. cp 16:50 Eyes: Negative for injury, pain, redness, and discharge. cp 16:50 ENT: Negative for drainage from ear(s), ear pain, sore throat, difficulty swallowing, difficulty handling secretions. 16:50 Neck: Negative for pain with movement, pain at rest, stiffness. 16:50 Cardiovascular: Negative for chest pain, edema, palpitations. 16:50 Respiratory: Negative for cough, shortness of breath, wheezing. 16:50 Abdomen/GI: Negative for abdominal pain, nausea, vomiting, and diarrhea. 16:50 MS/extremity: Positive for decreased range of motion, pain, swelling, tenderness, of the left shoulder, Negative for paresthesias. 16:50 Neuro: Positive for syncope, Negative for altered mental status, numbness, weakness. 16:50 All other systems are negative. Exam: 16:55 Constitutional: The patient appears in no acute distress, alert, awake, cp non-diaphoretic, non-toxic, well developed, well nourished, uncomfortable. 16:55 Head/Face: Normocephalic, atraumatic. cp 16:55 Eyes: Periorbital structures: appear normal, Pupils: equal, round, and reactive to light and accomodation, Extraocular movements: intact throughout, Conjunctiva: normal, no exudate, no injection, Sclera: no appreciated abnormality, Lids and lashes: appear normal, bilaterally. 16:55 ENT: External ear(s): are unremarkable, Ear canal(s): are normal, clear, TM's: dullness, bilaterally, Nose: is normal, Mouth: Lips: moist, Oral mucosa: moist, Posterior pharynx: Airway: no evidence of obstruction, patent. 16:55 Neck: C-spine: C-collar placed ENGINE BOSS. 16:55 Chest/axilla: Inspection: normal, Palpation: is normal, no crepitus, no tenderness. 16:55 Cardiovascular: Rate: normal, Rhythm: regular, Edema: is not appreciated, JVD: is not appreciated. 16:55 Respiratory: the patient does not display signs of respiratory distress, Respirations: normal, no use of accessory muscles, no retractions, labored breathing, is not present, Breath sounds: are clear throughout, no decreased breath sounds, no stridor, no wheezing. 16:55 Abdomen/GI: Inspection: abdomen appears normal, Bowel sounds: active, all quadrants, Palpation: abdomen is soft and non-tender, in all quadrants. 16:55 Back: vertebral tenderness, is not appreciated. 16:55 Musculoskeletal/extremity: Extremities: grossly normal except: noted in the left shoulder: decreased ROM, ecchymosis, pain, swelling, tenderness, ROM: limited passive range of motion due to pain, in the left shoulder, Pulses: noted to be 2+ in the left radial artery, the left shoulder Sensation intact. left arm neurovascular intact, patient able to fully extend left thumb, hourly shift manager strength equal and symmetric. 16:55 Neuro: Orientation: to person, place \T\ time. Mentation: is normal, Sensation: no obvious gross deficits. 21:01 ECG was reviewed by the Attending Physician. cp Vital Signs: 16:35 Pulse 93; Resp 18; Temp 97.9; Pulse Ox 98% on R/A; ph 20:00 BP 166 / 87; Pulse 93; Resp 16; Pulse Ox 93% on R/A; jb4 20:47 BP 130 / 71; Pulse 88; Resp 17; Temp 98.6(O); Pulse Ox 94% on R/A; ke1 21:00 BP 138 / 78; Pulse 88; Resp 16; Pulse Ox 95% on R/A; jb4 Shereen Coma Score: 16:45 Eye Response: spontaneous(4). Verbal Response: oriented(5). Motor Response: obeys ph commands(6). Total: 15. 19:00 Eye Response: spontaneous(4). Verbal Response: oriented(5). Motor Response: obeys jb4 commands(6). Total: 15. 20:00 Eye Response: spontaneous(4). Verbal Response: oriented(5). Motor Response: obeys jb4 commands(6). Total: 15. 21:00 Eye Response: spontaneous(4). Verbal Response: oriented(5). Motor Response: obeys jb4 commands(6). Total: 15. 22:00 Eye Response: spontaneous(4). Verbal Response: oriented(5). Motor Response: obeys jb4 commands(6). Total: 15. Trauma Score (Adult): 16:45 Eye Response: spontaneous(1); Verbal Response: oriented(1); Motor Response: obeys ph commands(2); Systolic BP: > 89 mm Hg(4); Respiratory Rate: 10 to 29 per min(4); Shereen Score: 15; Trauma Score: 12 19:00 Eye Response: spontaneous(1); Verbal Response: oriented(1); Motor Response: obeys jb4 commands(2); Systolic BP: > 89 mm Hg(4); Respiratory Rate: 10 to 29 per min(4); Shereen Score: 15; Trauma Score: 12 20:00 Eye Response: spontaneous(1); Verbal Response: oriented(1); Motor Response: obeys jb4 commands(2); Systolic BP: > 89 mm Hg(4); Respiratory Rate: 10 to 29 per min(4); Shereen Score: 15; Trauma Score: 12 21:00 Eye Response: spontaneous(1); Verbal Response: oriented(1); Motor Response: obeys jb4 commands(2); Systolic BP: > 89 mm Hg(4); Respiratory Rate: 10 to 29 per min(4); [place] Score: 15; Trauma Score: 12 22:00 Eye Response: spontaneous(1); Verbal Response: oriented(1); Motor Response: obeys jb4 commands(2); Systolic BP: > 89 mm Hg(4); Respiratory Rate: 10 to 29 per min(4); Shereen Score: 15; Trauma Score: 12 Procedures: 21:00 Splinting: Splint applied to left shoulder using sling, applied by nurse. Examined by cp me, post splint application: neurovascular intact, Patient tolerated well. MDM: 16:37 Patient medically screened. cp 17:00 Differential Diagnosis: cardiac arrhythmia, cerebrovascular accident, GI bleed, cp transient ischemic attack, multiple trauma. 21:02 Data reviewed: vital signs, nurses notes, lab test result(s), radiologic studies, CT cp scan, plain films. 21:02 Test interpretation: by ED physician or midlevel provider: ECG, plain radiologic cp studies. Counseling: I had a detailed discussion with the patient and/or guardian regarding: the historical points, exam findings, and any diagnostic results supporting the discharge/admit diagnosis, lab results, radiology results, the need for outpatient follow up, a orthopedic surgeon, to return to the emergency department if symptoms worsen or persist or if there are any questions or concerns that arise at home. Response to treatment: the patient's symptoms have markedly improved after treatment, VSS. Pain markedly improved. Patient placed in sling for comfort and support. Will discharge to home for continued monitoring. 12 16:37 Order name: Basic Metabolic Panel; Complete Time: 18:42 cp 12 18:42 Interpretation: Normal except: K 3.1; GLUC 153; BUN 20; GFR 64. cp 08/10 16:37 Order name: CBC with Diff; Complete Time: 18:42 cp 12 18:57 Interpretation: Normal except: WBC 4.10; PLT 71. cp 08/10 16:37 Order name: LFT's; Complete Time: 18:42 cp 08/10 20:38 Interpretation: Normal except: AST 47; TP 8.4; GLOB 4.9; A/G 0.7. cp 12/ 16:37 Order name: Magnesium; Complete Time: 18:42 cp 12/ 16:37 Order name: NT PRO-BNP; Complete Time: 18:42 cp 12/ 16:37 Order name: PT-INR; Complete Time: 18:42 cp 12/ 16:37 Order name: Troponin HS; Complete Time: 18:42 cp 12/ 16:37 Order name: XRAY Chest (1 view); Complete Time: 18:42 cp 12/ 16:37 Order name: CT Traumagram (Head C Spine CAP W Con); Complete Time: 18:42 cp 12/ 16:37 Order name: CT Facial Bones W/O Con; Complete Time: 18:42 cp 12/ 16:47 Order name: Glucose, Ancillary Testing; Complete Time: 18:42 EDMS 12/ 17:21 Order name: CBC Smear Scan; Complete Time: 18:42 EDMS 12/ 21:45 Order name: Glucose, Ancillary Testing EDMS 08/10 21:47 Order name: Glucose, Ancillary Testing EDMS 12 16:37 Order name: EKG; Complete Time: 16:37 cp 12/ 16:37 Order name: Cardiac monitoring; Complete Time: 18:08 cp 12/ 16:37 Order name: EKG - Nurse/Tech; Complete Time: 19:05 cp 12/ 16:37 Order name: IV Saline Lock; Complete Time: 17:12 cp 12/ 16:37 Order name: Labs collected and sent; Complete Time: 17:12 cp 12/ 16:37 Order name: O2 Per Protocol; Complete Time: 17:01 cp 12/ 16:37 Order name: O2 Sat Monitoring; Complete Time: 17:01 cp 12/ 16:38 Order name: XRAY Chest (1 view) cp 12/ 16:38 Order name: XRAY Humerus LEFT; Complete Time: 18:42 cp 12/ 18:58 Order name: Shoulder Immobilizer; Complete Time: 22:04 cp EC:01 Rate is 87 beats/min. Rhythm is regular. RI interval is normal. QRS interval is normal. cp QT interval is normal. T waves are Inverted in lead aVR. Interpreted by me. Reviewed by me. Administered Medications: 17:04 Not Given (Physician Discretion): fentaNYL (PF) 25 mcg IVP once cp 17:15 Drug: morphine 4 mg Route: IVP; Infused Over: 4 mins; Site: right antecubital; ld1 18:07 Drug: Zofran (Ondansetron) 4 mg Route: IVP; Site: right antecubital; ld1 20:36 Drug: Dilaudid (HYDROmorphone) 1 mg Route: IVP; Site: right antecubital; ke1 22:03 Follow up: Response: No adverse reaction; Marked relief of symptoms jb4 20:48 Drug: NS 0.9% 500 ml Route: IV; Rate: bolus; Site: right antecubital; ke1 20:48 Drug: Zofran (Ondansetron) 4 mg Route: IVP; Site: right antecubital; ke1 22:03 Follow up: Response: No adverse reaction; Marked relief of symptoms jb4 22:02 Drug: Ketorolac 15 mg Route: IVP; Site: right antecubital; jb4 22:03 Follow up: Response: Medication administered at discharge. jb4 Disposition: 08/11 17:27 Co-signature as Attending Physician, Myke Torres MD I agree with the assessment and rt plan of care. Disposition Summary: 08/10/22 21:02 Discharge Ordered Location: Home cp Problem: new cp Symptoms: have improved cp Condition: Stable cp Diagnosis - Hypoglycemia, unspecified cp - Syncope cp - 2-part nondisplaced fracture of surgical neck of left humerus, initial encounter cp for closed fracture - Fracture of greater tuberosity of humerus - left cp Followup: cp - With: - When: 2 - 3 days - Reason: left proximal humerus fracture Discharge Instructions: - Discharge Summary Sheet cp - Humerus Fracture Treated With Immobilization cp - Hypoglycemia cp - Syncope cp - Blood Glucose Monitoring, Adult cp Forms: - Medication Reconciliation Form cp - Thank You Letter cp - Antibiotic Education cp - Prescription Opioid Use cp - Work release form eb Prescriptions: - Ibuprofen 800 mg Oral Tablet - take 1 tablet by ORAL route every 8 hours As needed take with food; 30 tablet; cp Refills: 0, Product Selection Permitted - Tylenol-Codeine #3 300 mg-30 mg Oral - take 2 tablet by ORAL route every 6-8 hours; 20 tablet; Refills: 0, Product cp Selection Permitted Signatures: [facility] Am[facility] Millan RN RN Misha Saldana PA PA cp Hussain Cooley RN RN jb4 Maddie Freed RN RN ld1 Hafsa Barnes RN RN ke1 Myke Torres MD MD rt Corrections: (The following items were deleted from the chart) 08/10 18:57 18:43 Normal except: WBC 4.10. cp cp 08/11 20:11 08/10 16:45 Patient brought to ED by EMS after reported syncopal episode while standing cp on bleachers at local school gym. Patient with history of DM and reports blood sugar was low. Started having lightheartedness and lost consciousness. Patient reportedly fell about 3 ft high from bleachers. cp
--- NOTE | 2022-08-10 21:03 | ER ---
Nurse's Notes [facility] Name: Pricila Franklin Age: 62 yrs Sex: Female : 1960 Arrival Date: 08/10/2022 Time: 16:35 Bed 8 Private MD: Diagnosis: Hypoglycemia, unspecified;Syncope;2-part nondisplaced fracture of surgical neck of left humerus, initial encounter for closed fracture;Fracture of greater tuberosity of humerus-left Presentation: 08/10 16:35 Chief complaint: EMS states: Pt was at local school on bleachers in auditorium, became ph dizzy d/t low blood sugar and fell backwards approx 3 feet, +LOC x approx 5 minutes, initial BGL 54, d10 given, pt c/o pain to L shoulder, 20 G IV to RAC, 50 mcg fentanyl given, pt awake and alert upon arrival to ED, VSS. Coronavirus screen: Vaccine status: Patient reports receiving the 2nd dose of the covid vaccine. Ebola Screen: No symptoms or risks identified at this time. 16:35 Method Of Arrival: EMS: [facility] 16:35 Care prior to arrival: Cervical collar in place. Placed on backboard. IV initiated. 20 ph GA, in the right antecubital area, Glucose check: 54. Mechanism of Injury: Fall down 3 steps. Trauma event details: Injury occurred in the [facility], Injury occurred: in a public building. Injury occurred: August 10, 2022. 17:00 Initial Sepsis Screen: Does the patient meet any 2 criteria? No. Patient's initial ph sepsis screen is negative. Does the patient have a suspected source of infection? No. Patient's initial sepsis screen is negative. Risk Assessment: Do you want to hurt yourself or someone else? Patient reports no desire to harm self or others. Onset of symptoms was August 10, 2022. 17:00 Acuity: GABBY 2 ph Historical: - Allergies: 17:00 No Known Allergies; ph - Home Meds: 17:00 estradiol Oral [Active]; ph - PMHx: 17:00 cirrhosis of liver; stage 3; Diabetes - NIDDM; ph - Immunization history:: Adult Immunizations unknown. - Immunization history: Last tetanus immunization: unknown. - Social history:: Smoking status: Patient denies any tobacco usage or history of. Screenin:01 Abuse screen: Denies threats or abuse. Denies injuries from another. Nutritional ph screening: No deficits noted. Tuberculosis screening: No symptoms or risk factors identified. Fall Risk None identified. Primary Survey: 16:45 NO uncontrolled hemorrhage observed. A: The client is awake and alert. The airway is ph patent. Breathing/Chest: Spontaneous respiratory effort, equal unlabored respirations, breath sounds clear bilaterally, regular pattern, symmetrical chest rise and fall. Circulation: No external hemorrhage present. Regular and strong central pulse, skin warm/dry/normal color. Disability Pupils are equal, round, reactive to light and accommodation. Exposure/Environment: There is no evidence of uncontrolled external bleeding. A warming method has been applied: A warm blanket has been provided to the patient. 19:00 Reassessment Alertness and Airway: Awake and alert. The airway is patent. Breathing: jb4 Spontaneous respiratory effort, equal unlabored respirations, breath sounds clear bilaterally, regular pattern with symmetrical chest rise and fall. Circulation: No external hemorrhage noted. Regular and strong central pulse, skin warm/dry/normal color. Disability: Pupils Pupils are equal, round, reactive to light and accomodation. Alert. Secondary Survey: 16:45 HEENT: Face Other dried blood noted to face, no obvious source of bleeding. ph Musculoskeletal: Reports pain in anterior aspect of left shoulder. Assessment: 16:45 General: Appears in no apparent distress. comfortable, Behavior is calm, cooperative, ph appropriate for age. Pain: Complains of pain in anterior aspect of left shoulder. Neuro: Level of Consciousness is awake, alert, obeys commands, Oriented to person, place, time, situation. Cardiovascular: Capillary refill < 3 seconds in bilateral fingers Patient's skin is warm and dry. Respiratory: Airway is patent Respiratory effort is even, unlabored. Derm: Skin is pink, warm \T\ dry. 19:00 Reassessment: Patient appears in no apparent distress at this time. Patient and/or jb4 family updated on plan of care and expected duration. Pain level reassessed. Patient is alert, oriented x 3, equal unlabored respirations, skin warm/dry/pink. 20:30 Pain: Complains of pain in left shoulder Pain currently is 10 out of 10 on a pain ke1 scale. at worst was 11 out of 10 on a pain scale. level that patient reports is acceptable is 5 out of 10 on a pain scale. 21:30 Reassessment: Patient appears in no apparent distress at this time. Patient and/or jb4 family updated on plan of care and expected duration. Pain level reassessed. Patient is alert, oriented x 3, equal unlabored respirations, skin warm/dry/pink. Vital Signs: 16:35 Pulse 93; Resp 18; Temp 97.9; Pulse Ox 98% on R/A; ph 20:00 BP 166 / 87; Pulse 93; Resp 16; Pulse Ox 93% on R/A; jb4 20:47 BP 130 / 71; Pulse 88; Resp 17; Temp 98.6(O); Pulse Ox 94% on R/A; ke1 21:00 BP 138 / 78; Pulse 88; Resp 16; Pulse Ox 95% on R/A; jb4 Shereen Coma Score: 16:45 Eye Response: spontaneous(4). Verbal Response: oriented(5). Motor Response: obeys ph commands(6). Total: 15. 19:00 Eye Response: spontaneous(4). Verbal Response: oriented(5). Motor Response: obeys jb4 commands(6). Total: 15. 20:00 Eye Response: spontaneous(4). Verbal Response: oriented(5). Motor Response: obeys jb4 commands(6). Total: 15. 21:00 Eye Response: spontaneous(4). Verbal Response: oriented(5). Motor Response: obeys jb4 commands(6). Total: 15. 22:00 Eye Response: spontaneous(4). Verbal Response: oriented(5). Motor Response: obeys jb4 commands(6). Total: 15. Trauma Score (Adult): 16:45 Eye Response: spontaneous(1); Verbal Response: oriented(1); Motor Response: obeys ph commands(2); Systolic BP: > 89 mm Hg(4); Respiratory Rate: 10 to 29 per min(4); [place] Score: 15; Trauma Score: 12 19:00 Eye Response: spontaneous(1); Verbal Response: oriented(1); Motor Response: obeys jb4 commands(2); Systolic BP: > 89 mm Hg(4); Respiratory Rate: 10 to 29 per min(4); [place] Score: 15; Trauma Score: 12 20:00 Eye Response: spontaneous(1); Verbal Response: oriented(1); Motor Response: obeys jb4 commands(2); Systolic BP: > 89 mm Hg(4); Respiratory Rate: 10 to 29 per min(4); [place] Score: 15; Trauma Score: 12 21:00 Eye Response: spontaneous(1); Verbal Response: oriented(1); Motor Response: obeys jb4 commands(2); Systolic BP: > 89 mm Hg(4); Respiratory Rate: 10 to 29 per min(4); [place] Score: 15; Trauma Score: 12 22:00 Eye Response: spontaneous(1); Verbal Response: oriented(1); Motor Response: obeys jb4 commands(2); Systolic BP: > 89 mm Hg(4); Respiratory Rate: 10 to 29 per min(4); [place] Score: 15; Trauma Score: 12 ED Course: 16:35 Patient arrived in ED. ph 16:35 Misha Burleson PA is PHCP. cp 16:35 Myke Torres MD is Attending Physician. cp 17:00 Triage completed. ph 17:01 Arm band placed on Patient placed in an exam room, on a stretcher, on nuclear monitoring technician, ph on pulse oximetry. 17:01 Patient has correct armband on for positive identification. Bed in low position. Call ph light in reach. Side rails up X 1. Client placed on continuous cardiac and pulse oximetry monitoring. NIBP monitoring applied. Door closed. Noise minimized. Warm blanket given. 17:12 Basic Metabolic Panel Sent. zm 17:12 CBC with Diff Sent. zm 17:12 LFT's Sent. zm 17:12 Magnesium Sent. zm 17:12 NT PRO-BNP Sent. zm 17:12 PT-INR Sent. zm 17:12 Troponin HS Sent. zm 17:15 XRAY Chest (1 view) In Process Unspecified. EDMS 17:15 XRAY Humerus LEFT In Process Unspecified. EDMS 18:02 CT Traumagram (Head C Spine CAP W Con) In Process Unspecified. EDMS 18:07 CT Facial Bones W/O Con In Process Unspecified. EDMS 19:42 Patient maintains SpO2 saturation greater than 95% on room air. ph 20:33 Hafsa Barnes, [place] is Primary Nurse. ke1 21:01 Yuval Sandoval MD is Referral Physician. cp 22:00 No provider procedures requiring assistance completed. IV discontinued, intact, jb4 bleeding controlled, No redness/swelling at site. Pressure dressing applied. Administered Medications: 17:04 Not Given (Physician Discretion): fentaNYL (PF) 25 mcg IVP once cp 17:15 Drug: morphine 4 mg Route: IVP; Infused Over: 4 mins; Site: right antecubital; ld1 18:07 Drug: Zofran (Ondansetron) 4 mg Route: IVP; Site: right antecubital; ld1 20:36 Drug: Dilaudid (HYDROmorphone) 1 mg Route: IVP; Site: right antecubital; ke1 22:03 Follow up: Response: No adverse reaction; Marked relief of symptoms jb4 20:48 Drug: NS 0.9% 500 ml Route: IV; Rate: bolus; Site: right antecubital; ke1 20:48 Drug: Zofran (Ondansetron) 4 mg Route: IVP; Site: right antecubital; ke1 22:03 Follow up: Response: No adverse reaction; Marked relief of symptoms jb4 22:02 Drug: Ketorolac 15 mg Route: IVP; Site: right antecubital; jb4 22:03 Follow up: Response: Medication administered at discharge. jb4 Medication: 17:01 VIS not applicable for this client. ph Outcome: 21:02 Discharge ordered by . cp 22:00 Discharged to home ambulatory. jb4 22:00 Condition: stable 22:00 Discharge instructions given to patient, family, Instructed on discharge instructions, follow up and referral plans. medication usage, Demonstrated understanding of instructions, follow-up care, medications, Prescriptions given X 2. 22:14 Patient left the ED. jb4 Signatures: Dispatcher [employer] EDMS Amada Harris RN RN ph Page, Corey, PA PA cp Hussain Cooley RN RN jb4 Maddie Freed RN RN ld1 Ebrottie, Kouassi, RN RN ke1 Honey Teixeira
[2022-08-10] MEDS ORDERED: KETOROLAC 30 MG/ML INJ ONE (21:51)
[2022-08-10] MEDS ORDERED: LIDOCAINE VISCOUS 2% SOLN 15 ML UDC ONE (22:19)
[2022-08-11 14:51] VITALS: TEMP 98.6
[2022-08-11 14:52] VITALS: BP 138/78; O2SAT 95
--- NOTE | 2022-08-13 15:04 | EKG ---
Test Date: 2022-08-10 Test Time: 20:56:49 Cost Estimator: ASHUTOSH MEASUREMENT RESULTS: Intervals: Rate: 87 CT: 144 QRSD: 76 QT: 392 QTc: 471 [place]: P: 54 CT: 144 QRS: 10 T: 63 INTERPRETIVE STATEMENTS: Normal sinus rhythm Anterior infarct, age undetermined Abnormal ECG No previous ECG available for comparison Electronically Signed On 08-13-22 14:57:47 ENAMEL SHADER by Genaro Jaramillo
== END 2022-08-10 22:14 | disposition home or self-care (01) ==
LOC: ER 16:19
DX: E11.649 Type 2 diabetes mellitus with hypoglycemia without coma (principal); S42.225A 2-part nondisplaced fracture of surgical neck of left humerus, initial encounter for closed fracture; S42.252A Displaced fracture of greater tuberosity of left humerus, initial encounter for closed fracture; W17.89XA Other fall from one level to another, initial encounter
CPT/HCPCS: 93005; 85025; 80048; 36415; 83735; 85610; 82947 ×2; 80076; 84484; 83880; 70450; 72125; 71260; 70486; 76377; 74177; 71045; 73060; 96375; 96374; 99284; Q9967; J1170; J7040; J2405 ×2

== ENCOUNTER 2022-08-27 13:15 | Observation (INO) | payer OTHER ==
--- OUTSIDE RECORDS SUMMARY | 2022-08-27 13:19 | XMS REPORT | Continuity of Care Document ---
:1960 Author Organization [facility] t Address [address] [place] [address] Dr. Becker. [address] [place] [address] Care Team Providers Name Role Phone Nuris Primary Care Physician FOG_A_Provider Attending Clinician Unavailable GC_SMITH_Cooper_J Attending Clinician Unavailable RUSS YAÑEZ Attending Clinician Unavailable FLASH BREEN Attending Clinician Unavailable FOG_A_Provider Admitting Clinician Unavailable GC_SMITH_Cooper_Fawad Admitting Clinician Unavailable RUSS YAÑEZ Admitting Clinician Unavailable FLASH BREEN Admitting Clinician Unavailable Payers Payer Name Policy Type Policy Number Effective Date Expiration Date S dmitry [place] [id number] 2020 00:00:00 Problems Condition Condition Condition Status Onset Resolution Last Treating Co mments Source Name Details Category Date Date Treatment Clinician Date Closed Closed Problem Active 2021-09 [facility] fracture Fracture 2-19 Orthop e of of 00:00: dic proximal Proximal 00 Sports left Left Medicin humerus Humerus e Shoulder Shoulder Problem Active 2021-09 Azale a pain Pain 2-16 Orthope 00:00: dic 00 Sports Medicin e Thrombocyt Thrombocyt Disease [facility] Anemia Anemia Disease [facility] E coli E coli Disease Active [facility] bacteremia bacteremia 09-12 [facility] Pyelonephr Pyelonephr Disease Active [facility] itis itis 1- [facility] Hydronephr Hydronephr Disease Active [facility] osis with osis with 09-08 [facility] ureteropel ureteropel 00:00: Me dical riley riley 00 Center junction junction (UPJ) (UPJ) obstructio obstructio n n Type 2 Type [address] [facility] diabetes diabetes 09-08 [facility] mellitus mellitus 00:00: Medica l without without 00 Center complicati complicati on, on, without without long-term long-term current current use of use of insulin insulin Allergies, Adverse Reactions, Alerts This patient has no known allergies or adverse reactions. Social History Social Habit Start Date Stop Date Quantity Comments Source Alcohol intake 2017-10-02 2017-10-[address] [facility] [address] Nina es 00:00:00 00:00:00 non-drinker of Medical nter alcohol (finding) Tobacco use and 2017-09-07 2017-09-[address] [facility] Lorin kes exposure 00:00:00 00:00:00 [facility] Sex Assigned At [address] [facility] Lorin kes 00:00:00 00:00:00 [facility] Smoking Status Start Date Stop Date Source Never Smoker [facility] Medications Ordered Filled Start Stop Current Ordering Indication Dosage Frequency Signature Comments Components Source Medication Medication Date Date Medication? Clinician (SIG) Name Name estradiol Yes .5mg QD Take 0.[address] [facility] [address] (ESTRACE) 1-31 mg by [facility] 0.5 MG 15:20: mouth Medical tablet 29 daily. [place] HYDROcodone Yes 1{tbl} Take [address] -acetaminop 1-31 tablet by Nina es hen (NORCO 15:20: mouth Medica l 5-325) 29 every 6 Center 5-325 mg (six) per tablet hours as needed for Pain. estradiol Yes .5mg QD Take 0.[address] (ESTRACE) 1-31 mg by [facility] 0.5 MG 15:20: mouth Medical tablet 29 daily. [place] HYDROcodone Yes 1{tbl} Take [address] -acetaminop 1-31 tablet by Nina es hen (NORCO 15:20: mouth Medica l 5-325) 29 every 6 Center 5-325 mg (six) per tablet hours as needed for Pain. tamsulosin 2018-0 Yes .4mg QD Take 1 [facility] (FLOMAX) 1-13 capsule [facility] 0.4 mg Cp24 00:00: (0.4 mg Med ical 24 hr 00 total) by Center capsule mouth daily. tamsulosin 2018-0 Yes .4mg QD Take 1 [facility] (FLOMAX) 1-13 capsule [facility] 0.4 mg Cp24 00:00: (0.4 mg Med ical 24 hr 00 total) by Center capsule mouth daily. acetaminoph acetaminoph No acetaminop [facility] en 300 en 300 hen 300 Orthope mg-codeine mg-codeine mg-codeine dic 30 mg 30 mg 30 mg Sports tablet TAKE tablet TAKE tablet Medicin 2 TABLETS 2 TABLETS TAKE 2 e BY MOUTH BY MOUTH TABLETS BY EVERY 6-8 EVERY 6-8 MOUTH HOURS HOURS EVERY 6-8 HOURS amoxicillin amoxicillin No amoxicilli [facility] [phone] n 875 Orthope mg-potassiu mg-potassiu mg-potassi dic m m um Sports clavulanate clavulanate clavulanat Medicin 125 mg 125 mg e 125 mg e tablet TAKE tablet TAKE tablet 1 TABLET BY 1 TABLET BY TAKE 1 MOUTH TWICE MOUTH TWICE TABLET BY A DAY A DAY MOUTH TWICE A DAY BD Carly 2nd BD Carly 2nd No BD Carly [facility] Gen Pen Gen Pen 2nd Gen Orthop e Needle 32 Needle 32 Pen Needle dic gauge x gauge x 32 gauge x Spo rts " 1 " 1 " 1 Medici n EVERY TWO EVERY TWO EVERY TWO e WEEKS WEEKS WEEKS cyclobenzap cyclobenzap No 1 TID cyclobenza [facility] rine 10 mg rine 10 mg kevyn 10 Orthope tablet Take tablet Take mg tablet dic 1 tablet 3 1 tablet 3 Take 1 S ports times a day times a day tablet 3 Medicin by oral by oral times a e route. route. day by oral route. escitalopra escitalopra No escitalopr [facility] m 20 mg m 20 mg am 20 mg Ortho pe tablet TAKE tablet TAKE tablet dic 1 TABLET BY 1 TABLET BY TAKE 1 Sports MOUTH EVERY MOUTH EVERY TABLET BY Medicin DAY DAY MOUTH e EVERY DAY estradiol estradiol No estradiol [facility] 0.5 mg 0.5 mg 0.5 mg Orthope tablet TAKE tablet TAKE tablet dic ONE (1) ONE (1) TAKE ONE Sport s TABLET(S) TABLET(S) (1) Medic in BY MOUTH BY MOUTH TABLET(S) e ONCE A DAY. ONCE A DAY. BY MOUTH ONCE A DAY. gabapentin gabapentin No gabapentin [facility] 600 mg 600 mg 600 mg Orthope tablet TAKE tablet TAKE tablet dic ONE (1) ONE (1) TAKE ONE Sport s TABLET(S) TABLET(S) (1) Medic in BY MOUTH BY MOUTH TABLET(S) e THREE TIMES THREE TIMES BY MOUTH A DAY. A DAY. THREE TIMES A DAY. ibuprofen ibuprofen No ibuprofen [facility] 800 mg 800 mg 800 mg [facility] tablet TAKE tablet TAKE tablet dic 1 TABLET BY 1 TABLET BY TAKE 1 Sports MOUTH EVERY MOUTH EVERY TABLET BY Medicin 8 HOURS 8 HOURS MOUTH e NEEDED. NEEDED. EVERY 8 TAKE WITH TAKE WITH HOURS FOOD FOOD NEEDED. TAKE WITH FOOD meloxicam meloxicam No 1 Q1D meloxicam [facility] 7.5 mg 7.5 mg 7.5 mg Orthope tablet Take tablet Take tablet dic 1 tablet 1 tablet Take 1 Sport s every day every day tablet Med icin by oral by oral every day e route. route. by oral route. mirtazapine mirtazapine No mirtazapin [facility] 30 mg 30 mg e 30 mg Orthope tablet TAKE tablet TAKE tablet dic 1 TABLET BY 1 TABLET BY TAKE 1 Sports MOUTH MOUTH TABLET BY Medicin EVERYDAY AT EVERYDAY AT MOUTH e BEDTIME BEDTIME EVERYDAY AT BEDTIME pantoprazol pantoprazol No pantoprazo [facility] e 40 mg e 40 mg le 40 mg Ortho pe tablet,wenceslao tablet,wenceslao tablet,del dic yed release yed release ayed S ports TAKE 1 TAKE 1 release Medicin TABLET BY TABLET BY TAKE 1 e MOUTH TWICE MOUTH TWICE TABLET BY A DAY A DAY MOUTH TWICE A DAY rosuvastati rosuvastati No rosuvastat [facility] n 5 mg n 5 mg in 5 mg Orthope tablet TAKE tablet TAKE tablet dic 1 TABLET BY 1 TABLET BY TAKE 1 Sports MOUTH EVERY MOUTH EVERY TABLET BY Medicin DAY IN THE DAY IN THE MOUTH e EVENING EVENING EVERY DAY IN THE EVENING sertraline sertraline No sertraline [facility] 50 mg 50 mg 50 mg Orthope tablet TAKE tablet TAKE tablet dic 1 TABLET BY 1 TABLET BY TAKE 1 Sports MOUTH EVERY MOUTH EVERY TABLET BY Medicin DAY IN THE DAY IN THE MOUTH e MORNING MORNING EVERY DAY IN THE MORNING tramadol 50 tramadol 50 No tramadol [facility] mg tablet mg tablet 50 mg Orth ope TAKE ONE TAKE ONE tablet dic (1) (1) TAKE ONE Sports TABLET(S) TABLET(S) (1) Medic in BY MOUTH BY MOUTH TABLET(S) e EVERY SIX EVERY SIX BY MOUTH HOURS. HOURS. EVERY SIX HOURS. zolpidem 10 zolpidem 10 No zolpidem [facility] mg tablet mg tablet 10 mg Orth ope TAKE ONE TAKE ONE tablet dic (1) (1) TAKE ONE Sports TABLET(S) TABLET(S) (1) Medic in BY MOUTH AT BY MOUTH AT TABLET(S) e BEDTIME. BEDTIME. BY MOUTH AT BEDTIME. Vital Signs Vital Name Observation Time Observation Value Comments Source Height 2022-08-20 00:00:00 61 [in_i] [facility] Medicine BMI (Body Mass 2022-08-20 00:00:00 33.1 kg/m2 [facility] Orthopedic Index) Sports Medicine Body Weight 2022-08-20 00:00:00 175 [lb_av] [facility] Procedures Procedure Date / Time Performed Performing Clinician Sourc e XR, shoulder, 2 or 2022-08-20 00:00:00 [facility] Or tyrone more view Sports Medicine Plan of Care Planned Activity Planned Date Details Comments Source Future Appointment 2022-09-10 Roby Oliva, [id number] Jennifer kilgore Orthopedic 14:30:00 [facility] Sports Medici [facility] [place] [address] Encounters Start End Encounter Admission Attending Care Care Encounter Source Date/Time Date/Time Type Type Clinicians Facility Department ID 2022-08-21 2022-08-21 Outpatient FOG_A_Provi AOSM AO [id number] [facility] 00:00:00 00:00:00 benjamín [id number] Orthop e dic Sports Medicin e 2022-08-20 2022-08-20 Outpatient FOG_A_Provi AOSM AO [id number] [facility] 00:00:00 00:00:00 benjamín [id number] Orthop e dic Sports Medicin e 2022-08-20 2022-08-20 Roby Holder AOSM [place] - Ortho [id number] [facility] 00:00:00 00:00:00 MD Pj: Renetta Beal Orthope [address] FOG_Ofc dic [place], [place] Sport [address], [place] [address] , Ph. [phone] 2022-08-17 2022-08-17 Outpatient FOG_A_Provi AOSM AOSM [id number] [facility] 00:00:00 00:00:00 benjamín [id number] Orthop e dic Sports Medicin e 2022-08-16 2022-08-16 Outpatient FOG_A_Provi AOSM AOSM [id number] [facility] 00:00:00 00:00:00 ebnjamín [id number] Orthop e dic Sports Medicin e 2022-01-24 2022-01-24 Outpatient GC_SWHAOMC_ PRIV PRIV [id number] [facility] 09:16:00 09:16:00 Cooper_J [id number] Medic al 2022-01-24 2022-01-24 Outpatient GC_SWHAOMC_ PRIV PRIV [id number] [facility] 09:16:00 09:16:00 Cooper_J [id number] Medic al 2022-01-24 2022-01-24 Outpatient GC_SWHAOMC_ PRIV PRIV 108 [id number] [facility] 09:16:00 09:16:00 Cooper_J [id number] Medic al Results Test Description Test Time Test Comments Results Result Comments Source AFB CULTURE + SMEAR 2017-10-24 04:25:00 Test Item Value Reference Range Interpretation Comme nts CULTURE (BEAKER) (test code = 1095) No acid-fast bacilli isolated i n 42 days AFB SMEAR (BEAKER) (test code = 994) No acid fast bacilli seen FUNGUS CULTURE + [id number] 13:36:00 Test Item Value Reference Range Interpretation Comments CULTURE (BEAKER) (test No fungus isolated in code = 1095) 28 days FUNGUS SMEAR (BEAKER) No fungi seen (test code = 1406) [place], CLIENT LEADER IN OR/30 MINUTE [id number] 15:53:00Reason for exam:- >NephrolithiasIs the patient ?->NoWhen was patient's last menstrual cycle?->10/02/17INAL REPORT TECHNIQUE: Fluoroscopic images from urologic procedure were submitted for interpretation. INDICATION: 57-year-old woman with nephrolithiasis. COMPARISON: None. FINDINGS :Single frontal image shows unilateral ureteral stent in place. Fluoroscopy time: 52 secondsNumber of images: 1 IMPRESSION:Fluoroscopic images from urologic procedure as detailed above, not obtained bythe undersigned. Please refer to operative note for more details of the procedure and findings. Signed: Fay Foote MDReport Verified Date/Time: 10/02/2017 15:53:40 Reading Location: [address] Radiology Reading Room POCT-GLUCOSE [id number] 10:54:00 Test Item Value Reference Range Interpretation Comments POC-GLUCOSE METER 145 mg/dL 70-110 H TESTED AT [facility] 6720 (BEAKER) (test code = [facility] 1538) [id number] URINE [id number] 10:33:00 Test Item Value Reference Range Interpretation [...] Negative rods<10,000 col/mL BETA HEMOLYTIC STREPTOCOCCUSURINALYSIS W/ [id number] 15:50:00 Test Item Value Reference Range Interpretation [...] code = 516) SOURCE(BEAKER) (test code = 2795) BASIC METABOLIC [id number] 14:43:00 Test Item Value Reference Range Interpretation [...] S NOT APPLICABLE FOR DIALYSIS PATIEN TS. [id number] 14:28:00 Test Item Value Reference Range Interpretation Comments PARTIAL THROMBOPLASTIN TIME 30.8 seconds 22.5-36.0 (BEAKER) (test code = 760) PROTHROMBIN TIME/[id number] 14:27:00 Test Item Value Reference Range Interpretation [...] mechanical heart valves.CBC W/PLT COUNT & AUTO [id number] 14:22:00 Test Item Value Reference Range Interpretation [...] (test code = 2801) RAD, CHEST, 2 [id number] 13:40:00Reason for exam:->Pre admissionIs the patient ?->NoFINAL REPORT Chest, PA and lateral. History: Preadmission testing. Nephrolithiasis. Comparison: None available. Discussion: The cardiomediastinal silhouette and pulmonary vasculature are within normal limits. The lungs are clear without evidence of consolidation or effusion. Thereare no acute osseous abnormalities. The soft tissues are unremarkable. IMPRESSION: No acute cardiopulmonary abnormality. Signed: Jia Adams MDReport Verified Date/Time: 09/26/2017 13:40:29 ReadingLocation: [address] Radiology Reading Room POCT-GLUCOSE [id number] 10:17:00 Test Item Value Reference Range Interpretation Comments POC-GLUCOSE METER 237 mg/dL 70-110 H TESTED AT [facility] 6720 (BEAKER) (test code = [facility] 1538) [id number] CBC (HEMOGRAM ONLY)2017-09-14 06:38:00 Test Item Value [...] (BEAKER) (test code = 413) BASIC METABOLIC [id number] 06:06:00 Test Item Value Reference Range Interpretation [...] NOT APPLICABLE FOR DIALYSIS PATIEN TS. POCT-GLUCOSE [id number] 21:17:00 Test Item Value Reference Range Interpretation Comments POC-GLUCOSE METER 169 mg/dL 70-110 H TESTED AT [facility] 6720 (BEAKER) (test code = [place] 1538) [address] POCT-GLUCOSE [id number] 18:12:00 Test Item Value Reference Range Interpretation Comments POC-GLUCOSE METER 135 mg/dL 70-110 H TESTED AT [facility] 6720 (RICHIE) (test code = [place] 1538) [address] U/S, ABDOMINAL, [id number] 17:48:00Reason for exam:->evaluate for splenomegaly in patient [...] pole nonobstructing left renal stone. Signed: Soumya Blackeport Verified Date/Time: 09/13/2017 17:48:27 Reading Location: [address] Ultrasound Reading Room PERIPHERAL BLOOD SMEAR - PATHOLOGIST [id number] 14:08:00 Test Item Value Reference Range Interpretation Comments PERIPHERAL SMR Mild thrombocytopenia REVIEW (RICHIE) with occasional large (test code = 2640) forms. No increase in schistocytes. No blasts detected. [id number] Penny Malone MD 2 (BEAKER) (test (electronic signature) code = 2849) POCT-GLUCOSE [id number] 13:49:00 Test Item Value Reference Range Interpretation Comments POC-GLUCOSE METER 105 mg/dL 70-110 TESTED AT [place] [address] (BANNER) (test code = [place] 1538) [address] BLOOD [id number] 10:01:00 Test Item Value Reference Range Interpretation Comments CULTURE (BEAKER) (test No growth in 5 days code = 1095) POCT-GLUCOSE [id number] 08:46:00 Test Item Value Reference Range Interpretation Comments POC-GLUCOSE METER 116 mg/dL 70-110 H TESTED AT [place] [address] (BANNER) (test code = [place] 1538) [address] CBC W/PLT COUNT & AUTO [id number] 07:54:00 Test Item Value Reference Range Interpretation Comments WHITE BLOOD CELL COUNT (BEAKER) 4.7 K/ L 3.5-10.5 (test code = 775) RED BLOOD CELL COUNT (BEAKER) 3.66 M/ L 3.93-5.22 L (test code [...] code = Present 1678) VITAMIN B12 AND [id number] 07:24:00 Test Item Value Reference Range Interpretation Comments VITAMIN B12 (BEAKER) (test code = 362 pg/mL 213-816 774) FOLATE (BEAKER) (test code = 362) 14.2 ng/mL >=7.0 RETICULOCYTE [id number] 06:40:00 Test Item Value Reference Range Interpretation Comments RETICULOCYTE COUNT PCT (BEAKER) (test 1.9 % 0.5-1.7 H code = 575) LACTATE DEHYDROGENASE (LDH)2017-09-13 06:27:00 Test Item Value Reference Range Interpretation Comments LACTATE DEHYDROGENASE (BEAKER) (test 201 U/L 125-220 code = 635) COMPREHENSIVE METABOLIC [id number] 06:27:00 Test Item Value Reference Range Interpretation [...] APPLICABLE FOR DIALYSIS PATIEN TS. HEPATITIS C [id number] 06:23:00 Test Item Value Reference Range Interpretation Comments HEPATITIS C ANTIBODY (BEAKER) Nonreactive Nonreactive (test code = 367) HIV-1 ANTIGEN WITH HIV-1/2 [id number] 06:23:00 Test Item Value Reference Range Interpretation Comments HIV-1 ANTIGEN WITH HIV 1\\T\\2 Nonreactive Nonreactive ANTIBODY (2) (BEAKER) (test code = 2586) [id number] 06:02:00 Test Item Value Reference Range Interpretation Comments HAPTOGLOBIN (BEAKER) (test code = 196 mg/dL 14-258 366) BLOOD [id number] 23:00:00 Test Item Value Reference Range Interpretation Comments CULTURE (BEAKER) (test No growth in 5 days code = 1095) POCT-GLUCOSE [id number] 21:51:00 Test Item Value Reference Range Interpretation Comments POC-GLUCOSE METER 225 mg/dL 70-110 H TESTED AT [facility] 6720 (BEAKER) (test code = [place] Co[place] [facility] 1538) [address] POCT-GLUCOSE [id number] 17:29:00 Test Item Value Reference Range Interpretation Comments POC-GLUCOSE METER 132 mg/dL 70-110 H TESTED AT [place] [address] (BEAKER) (test code = [facility] Meghna [facility] 1538) [address] CBC W/PLT COUNT & AUTO [id number] 15:28:00 Test Item Value Reference Range Interpretation [...] (BEAKER) (test code = Normal 762) POCT-GLUCOSE [id number] 12:35:00 Test Item Value Reference Range Interpretation Comments POC-GLUCOSE METER 154 mg/dL 70-110 H TESTED AT [place] [address] (BEAKER) (test code = DENY Coffman [facility] 1538) [address] POCT-GLUCOSE [id number] 09:43:00 Test Item Value Reference Range Interpretation Comments POC-GLUCOSE METER 108 mg/dL 70-110 TESTED AT [place] [address] (BEAKER) (test code = DEN[place] Co[place]man [facility] 1538) [address] BASIC METABOLIC [id number] 05:11:00 Test Item Value Reference Range Interpretation [...] NOT APPLICABLE FOR DIALYSIS PATIEN TS. POCT-GLUCOSE [id number] 22:14:00 Test Item Value Reference Range Interpretation Comments POC-GLUCOSE METER 112 mg/dL 70-110 H TESTED AT [place] [address] (BANNER) (test code = [facility] 1538) [address] POCT-GLUCOSE [id number] 18:30:00 Test Item Value Reference Range Interpretation Comments POC-GLUCOSE METER 98 mg/dL 70-110 TESTED AT [place] [address] (BANNER) (test code = [facility] [address] 1538) CBC W/PLT COUNT & AUTO [id number] 14:59:00 Test Item Value Reference Range Interpretation [...] TOTAL COUNTED (BEAKER) (test code = 1351) POCT-GLUCOSE [id number] 13:51:00 Test Item Value Reference Range Interpretation Comments POC-GLUCOSE METER 101 mg/dL 70-110 TESTED AT [place] [address] (BANNER) (test code = [facility] 1538) [address] POCT-GLUCOSE [id number] 08:29:00 Test Item Value Reference Range Interpretation Comments POC-GLUCOSE METER 129 mg/dL 70-110 H TESTED AT [place] [address] (BANNER) (test code = [facility] 1538) [address] VANCOMYCIN LEVEL, [id number] 05:47:00 Test Item Value Reference Range Interpretation Comments VANCOMYCIN TROUGH (BEAKER) (test 11.1 ug/mL 10.0-20.0 code = 522) Please draw 30 minutes prior to vancomycin due time. Do not administer if vancomycin trough is >20 mcg/mL. Thank you!BASIC METABOLIC [id number] 05:37:00 Test Item Value Reference Range Interpretation [...] NOT APPLICABLE FOR DIALYSIS PATIEN TS. POCT-GLUCOSE [id number] 21:36:00 Test Item Value Reference Range Interpretation Comments POC-GLUCOSE METER 145 mg/dL 70-110 H TESTED AT [place] [address] (BANNER) (test code = [facility] 1538) [address] POCT-GLUCOSE [id number] 17:44:00 Test Item Value Reference Range Interpretation Comments POC-GLUCOSE METER 178 mg/dL 70-110 H TESTED AT [place] [address] (BANNER) (test code = [facility] Meghna [facility] 1538) [address] POCT-GLUCOSE [id number] 13:00:00 Test Item Value Reference Range Interpretation Comments POC-GLUCOSE METER 162 mg/dL 70-110 H TESTED AT [place] [address] (BANNER) (test code = [facility] 1538) [address] URINE [id number] 12:41:00 Test Item Value Reference Range Interpretation Comments CULTURE (BANNER) (test code = 1095) Amikacin (test code [...] S Sulfamethoxazole (test code = 47) CULTURE (BEAKER) (test code A <10,000 col/mL = 1095) Escherichia col i POCT-GLUCOSE [id number] 11:08:00 Test Item Value Reference Range Interpretation Comments POC-GLUCOSE METER 236 mg/dL 70-110 H TESTED AT [facility] 6720 (BEAKER) (test code = [place] 1538) [address] BASIC METABOLIC [id number] 05:55:00 Test Item Value Reference Range Interpretation [...] PATIEN TS. CBC W/PLT COUNT & AUTO [id number] 05:04:00 Test Item Value Reference Range Interpretation [...] PERCENT (BEAKER) (test code = 2801) SPIN/CONCENTRATION [id number] 03:55:00 Test Item Value Reference Range Interpretation Comments CONCENTRATION CHARGED (BEAKER) (test Done code = 2657) POCT-GLUCOSE [id number] 21:28:00 Test Item Value Reference Range Interpretation Comments POC-GLUCOSE METER 166 mg/dL 70-110 H TESTED AT [place] [address] (BEAKER) (test code = [place] 1538) [address] POCT-GLUCOSE [id number] 17:58:00 Test Item Value Reference Range Interpretation Comments POC-GLUCOSE METER 108 mg/dL 70-110 TESTED AT [place] [address] (BEAKER) (test code = [place] 1538) [address] CBC W/PLT COUNT & AUTO [id number] 13:59:00 Test Item Value Reference Range Interpretation [...] PERCENT (BEAKER) (test code = 2801) URINE [id number] 13:12:00 Test Item Value Reference Range Interpretation Comments CULTURE (BEAKER) (test code = See comment 1095) <10,000 col/mL YeastPOCT-GLUCOSE [id number] 12:57:00 Test Item Value Reference Range Interpretation Comments POC-GLUCOSE METER 195 mg/dL 70-110 H TESTED AT [facility] 6720 (BEAKER) (test code = [place] 1538) [address] BASIC METABOLIC [id number] 10:46:00 Test Item Value Reference Range Interpretation [...] 358) GLUCOSE RANDOM 112 mg/dL 70-105 H (BEAKER) (test code = 652) CALCIUM (BEAKER) 7.9 mg/dL 8.4-10.2 L (test code = 697) EGFR (BEAKER) (test 76 mL/min/1.73 ESTIMA JULY GFR IS code = 1092) sq m NOT ACCURATE CREATININE CLEARANCE IN PREDICTING GLOMERULAR FILTRATION RATE . ESTIMATED GFR I S NOT APPLICABLE FOR DIALYSIS PATIEN TS. POCT-GLUCOSE [id number] 08:09:00 Test Item Value Reference Range Interpretation Comments POC-GLUCOSE METER 122 mg/dL 70-110 H TESTED AT [place] [address] (BANNER) (test code = [facility] [place] 1538) [address] POCT-GLUCOSE [id number] 06:40:00 Test Item Value Reference Range Interpretation Comments POC-GLUCOSE METER 113 mg/dL 70-110 H TESTED AT [place] [address] (BANNER) (test code = [facility] 1538) [address] POCT-GLUCOSE [id number] 22:09:00 Test Item Value Reference Range Interpretation Comments POC-GLUCOSE METER 160 mg/dL 70-110 H TESTED AT [place] [address] (BANNER) (test code = [facility] 1538) [address] VANCOMYCIN LEVEL, [id number] 20:32:00 Test Item Value Reference Range Interpretation Comments VANCOMYCIN TROUGH (BANNER) (test 4.4 ug/mL 10.0-20.0 L code = 522) POCT-GLUCOSE [id number] 16:55:00 Test Item Value Reference Range Interpretation Comments POC-GLUCOSE METER 231 mg/dL 70-110 H TESTED AT [place] [address] (BANNER) (test code = [facility] [place] 1538) [address] POCT-GLUCOSE [id number] 12:09:00 Test Item Value Reference Range Interpretation Comments POC-GLUCOSE METER 251 mg/dL 70-110 H TESTED AT [place] [address] (BANNER) (test code = [facility] [place] 1538) [address] POCT-GLUCOSE [id number] 09:09:00 Test Item Value Reference Range Interpretation Comments POC-GLUCOSE METER 256 mg/dL 70-110 H TESTED AT [place] [address] (BANNER) (test code = [facility] [place] 1538) [address] BASIC METABOLIC [id number] 04:41:00 Test Item Value Reference Range Interpretation Comments SODIUM (BANNER) 136 meq/L 136-145 (test code = 381) POTASSIUM (BANNER) 3.7 meq/L 3.5-5.1 (test code = 379) [...] APPLICABLE FOR DIALYSIS PATIEN TS. URINALYSIS W/ [id number] 04:25:00 Test Item Value Reference Range Interpretation [...] 1 /LPF code = 514) AMORPHOUS CRYSTALS (LOVEAKER) Rare (test code = 1584) SOURCE(RICHIE) (test code = Urine, Voided 3587) POCT-GLUCOSE [id number] 21:15:00 Test Item Value Reference Range Interpretation Comments POC-GLUCOSE METER 322 mg/dL 70-110 H TESTED AT [facility] 6720 (BANNER) (test code = DENY Coffman [facility] 1538) [address] LACTIC ACID, VENOUS, WHOLE [id number] 19:10:00 Test Item Value Reference Range Interpretation Comments LACTATE BLOOD VENOUS 3.5 mmol/L 0.5-2.2 H Specime n slightly (2) (BANNER) (test hemolyzed code = 2872) Effective 01/04/2016: Units/Reference Range ChangeNew: 0.5-2.2 mmol/L Previous: 5- 20 mg/dLPOCT-GLUCOSE [id number] 18:55:00 Test Item Value Reference Range Interpretation Comments POC-GLUCOSE METER 364 mg/dL 70-110 H TESTED AT [place] [address] (BANNER) (test code = DENY Coffman [facility] 1538) [address] POCT-GLUCOSE [id number] 17:34:00 Test Item Value Reference Range Interpretation Comments POC-GLUCOSE METER 395 mg/dL 70-110 H Notified Meghna Hdz MD/TESTED (RICHIE) (test code = AT [facility] [address] [place] [address] 1538) [facility] [address] [place], CLIENT LEADER IN OR/30 MINUTE [id number] 17:18:00Reason for exam:- >cysto with stent placementFINAL [...] MDReport Verified Date/Time: 09/07/2017 17:18:12 Reading Location: [facility] C013X OrthoConsult Reading Room GLOBIN [id number] 16:38:00 Test Item Value Reference Range Interpretation Comments HEMOGLOBIN A1C (BEAKER) (test code = 13.7 % 4.3-6.1 H 368) POCT-GLUCOSE [id number] 16:25:00 Test Item Value Reference Range Interpretation Comments POC-GLUCOSE METER 438 mg/dL 70-110 Notified R Andreina KHALIL/TESTED (BEAKER) (test code = AT [facility] 6720 [facility] 9495) [facility] 7703 0 CBC W/PLT COUNT & AUTO [id number] 16:06:00 Test Item Value Reference Range Interpretation [...] few (test code = 478) BASIC METABOLIC [id number] 15:59:00 Test Item Value Reference Range Interpretation [...] DIALYSIS PATIEN TS. LACTIC ACID, VENOUS, WHOLE [id number] 15:53:00 Test Item Value Reference Range Interpretation Comments LACTATE BLOOD VENOUS 2.1 mmol/L 0.5-2.2 Specime n moderately (2) (BEAKER) (test hemolyzed code = 2872) Effective 01/04/2016: Units/Reference Range ChangeNew: 0.5-2.2 mmol/L Previous: 5- 20 mg/dL
[2022-08-27] MEDS ORDERED: NA CHLORIDE 0.9% 500 ML ONE (14:18)
[2022-08-27] MEDS ORDERED: CEFTRIAXONE 1000 MG/VIAL ONE (14:18)
[2022-08-27] MEDS ORDERED: NA CHLORIDE 0.9% 1,000 ML ONE (14:18)
[2022-08-27] MEDS ORDERED: FAMOTIDINE 20 MG/2 ML VIAL IV ONE (14:18)
[2022-08-27 14:39] LABS: Absolute Lymphocytes (CBC) 0.7 K/uL (0.7-4.9); Hematocrit 35.2 % (36.0-45.0); Lymphocytes % 15.9 % (15.3-44.8); MCV 89.4 fL (80-100); MPV 9.4 fL (7.6-11.3); RBC Red Blood Cell Count 3.94 M/uL (3.86-4.86)
--- NOTE | 2022-08-27 14:57 | RAD REPORT ---
EXAM DESCRIPTION: RAD - Chest Single View - 08/27/2022 2:41 pm CLINICAL HISTORY: COUGH COMPARISON: Chest Single View dated 08/10/2022 FINDINGS: Lines: None. Lungs: No evidence of edema or pneumonia. Pleural: No significant pleural effusions or pneumothorax. Cardiac: The heart size is within normal limits. Mediastinum: Within normal limits. Bones: No acute fractures. Other: None IMPRESSION: No acute cardiopulmonary disease.
[2022-08-27 14:59] LABS: Protime INR 1.25
[2022-08-27 14:59] LABS: Albumin 3.1 g/dL (3.4-5.0); Bilirubin Direct 0.3 mg/dL (0-0.2); Bilirubin Total 0.8 mg/dL (0.2-1.0); Magnesium 1.6 mg/dL (1.6-2.4); Protein, Total 7.5 g/dL (6.4-8.2); Troponin High Sensitivity 5.9 pg/mL (<58.9)
[2022-08-27 15:09] LABS: SARS-CoV-2 Antigen Rapid Res Negative (Negative)
--- NOTE | 2022-08-27 15:29 | RAD REPORT ---
EXAM DESCRIPTION: CT - Head C Spine Cap Wo Con - 08/27/2022 3:10 pm CLINICAL HISTORY: Trauma, head and neck injury. Chest, abdomen and pelvis pain. FALL COMPARISON: Head C Spine Cap W Con dated 08/10/2022; Chest Single View dated 08/10/2022; Humerus Left dated 08/10/2022 TECHNIQUE: CT head without contrast. CT cervical spine without contrast with coronal and sagittal reformatted images. CT chest, abdomen and pelvis with coronal and sagittal reformatted images of the spine. All CT scans are performed using dose optimization technique as appropriate and may include automated exposure control or mA/KV adjustment according to patient size. FINDINGS: CT HEAD WITHOUT CONTRAST: No intracranial hemorrhage, hydrocephalus or extra-axial fluid collection. No acute large vascular te rritory infarct. The paranasal sinuses and mastoids are clear. The calvarium is intact. CT CERVICAL SPINE WITHOUT CONTRAST: No fracture or subluxation. Large posterior bridging osteophyte at C5-6 results in severe central spi nal stenosis. The prevertebral soft tissues are normal in thickness. CT CHEST, ABDOMEN, PELVIS: Thorax: Chest Wall: No abnormal mass Lungs: No acute abnormality. Pleura: No effusions or pneumothorax. [place]/Mediastinum: No lymphadenopathy. Aorta/Pulmonary Arteries: Unremarkable Heart: Normal size. Abdomen/Pelvis: Liver: Cirrhosis. Biliary: No biliary ductal dilatation. Stomach: No significant focal abnormality. Duodenum: No significant focal abnormality. Pancreas: No significant abnormality. Spleen: Splenomegaly. Adrenal: No suspicious lesions. Kidney/ureter: No hydronephrosis. Bilateral nonobstructing renal calculi. Retroperitoneum: No retroperitoneal adenopathy. Vascular: No aneurysm. Bowel: No significant focal abnormality. Peritoneum: No ascites or free air. Bladder: Grossly unremarkable. Reproductive: No adnexal masses. Bones: Subacute left proximal humerus fracture. Other: n/a IMPRESSION: 1. No acute intracranial abnormality. 2. No acute fracture traumatic malalignment cervical spine. 3. No evidence of significant acute trauma to the chest, abdomen, or pelvis. Subacute left proximal h umerus fracture again identified and similar alignment.
[2022-08-27 16:09] LABS: Urine Blood 2+ (Negative); Urine Glucose Negative (Negative); Urine Protein 1+ (Negative)
--- NOTE | 2022-08-27 16:39 | ER ---
Nurse's Notes [facility] Name: Pricila Franklin Age: 62 yrs Sex: Female : 1960 Arrival Date: 08/27/2022 Time: 13:18 Bed 16 Private MD: Diagnosis: Weakness;Repeated falls;Unspecified cirrhosis of liver;Type 2 diabetes mellitus with hyperglycemia;Fracture of upper end of humerus-SUBACUTE;UTI/ Urinary tract infection, site not specified;Dehydration Presentation: 08/27 13:18 Chief complaint: EMS states: daughter stated the patient had a fall down a set of kr3 bleachers on 08/10, at that time the patient was seen in the hospital and had a broken shoulder. Patient has been doing fine since fall until last night she became confused, slurred speech, and has fallen twice today around 1000 and 1130. patient stated her urine is brown. Coronavirus screen: Vaccine status: Patient reports receiving the 2nd dose of the covid vaccine. Ebola Screen: Patient denies travel to an Ebola-affected area in the 21 days before illness onset. Initial Sepsis Screen: Does the patient meet any 2 criteria? RR > 20 per min. No. Patient's initial sepsis screen is negative. 13:18 Method Of Arrival: EMS kr3 13:25 Initial Sepsis Screen: Does the patient have a suspected source of infection? No. kr3 Patient's initial sepsis screen is negative. Risk Assessment: Do you want to hurt yourself or someone else? Patient reports no desire to harm self or others. Onset of symptoms was August 26, 2022. 13:25 Acuity: GABBY 3 kr3 Triage Assessment: 13:30 General: Appears uncomfortable, obese, Behavior is flat. kr3 13:31 Pain: Complains of pain in left shoulder. kr3 Historical: - Allergies: 15:42 No Known Allergies; kr3 - PMHx: 13:30 cirrhosis of liver; stage 3; Diabetes - NIDDM; kr3 - Immunization history:: Adult Immunizations not up to date. - Social history:: Smoking status: Patient denies any tobacco usage or history of. - Family history:: not pertinent. Screenin:48 [facility] ED Fall Risk Assessment (Adult) History of falling in the last 3 months, aa9 including since admission. Abuse screen: Denies threats or abuse. Denies injuries from another. Nutritional screening: No deficits noted. Tuberculosis screening: No symptoms or risk factors identified. Assessment: 14:10 General: Appears uncomfortable, Behavior is cooperative, patient states she is seeing kr3 spiders, granddaughter at bedside and stated she may have taken to much medication . 14:12 Pain: Complains of pain in left shoulder. Neuro: Level of Consciousness is obeys kr3 commands, confused, lethargic. Cardiovascular: Patient's skin is warm and dry. Respiratory: Airway is patent Respiratory effort is even, unlabored, Respiratory pattern is regular, symmetrical. GI: Abdomen is round non-distended. : No signs and/or symptoms were reported regarding the genitourinary system. EENT: No signs and/or symptoms were reported regarding the EENT system. Derm: No signs and/or symptoms reported regarding the dermatologic system. Musculoskeletal: Reports pain in left shoulder. 17:43 Reassessment: No changes from previously documented assessment. Patient and/or family kr3 updated on plan of care and expected duration. Pain level reassessed. Vital Signs: 13:18 BP 115 / 63; Pulse 91; Resp 20; Temp 98.2(O); Pulse Ox 96% on R/A; kr3 ED Course: 13:18 Patient arrived in ED. kr3 13:25 Triage completed. kr3 13:31 Arm band placed on right wrist. Patient placed in an exam room, on a stretcher, on kr3 cafeteria monitor, on pulse oximetry. 14:07 Misha Chua MD is Attending Physician. lorenzo 14:09 Narcisa Calixto, [place] is Primary Nurse. kr3 14:38 Lactate w/ 2H reflex if indic. Sent. kr3 14:43 XRAY Chest (1 view) In Process Unspecified. EDMS 15:12 CT Traumagram (Head C Spine CAP wo con) In Process Unspecified. EDMS 16:10 Blood Culture Adult (2) Sent. kr3 16:37 Addy Mast MD is Hospitalizing Provider. lorenzo 19:47 Patient has correct armband on for positive identification. Bed in low position. Call aa9 light in reach. Side rails up X2. Client placed on continuous cardiac and pulse oximetry monitoring. NIBP monitoring applied. 19:48 No provider procedures requiring assistance completed. Patient admitted, IV remains in aa9 place. Administered Medications: 14:50 Drug: NS 0.9% 500 ml Route: IV; Rate: bolus; Site: right antecubital; kr3 14:51 Drug: Pepcid (famotidine) 20 mg Route: IVP; Site: right antecubital; kr3 14:51 Drug: Rocephin (cefTRIAXone) 1 grams Route: IV; Rate: per protocol; Site: right kr3 antecubital; 17:39 Drug: Aspirin Chewable Tablet 81 mg Route: PO; kr3 19:03 Not Given (Other Intervention Used): foLIC Acid 1 mg IVPB once kr3 19:03 Not Given (Other Intervention Used): Thiamine 100 mg IV at per protocol once kr3 19:03 Drug: Banana Bag - (NS 0.9% 1000 ml, foLIC Acid 1 mg, Thiamine 100 mg, Multivitamin 1 kr3 amp) Route: IV; Rate: 125 ml/hr; Site: right antecubital; 08/28 04:37 Not Given (Duplicate Order): NS 0.9% 1000 ml IV at 1 bolus Per protocol; 1000 mL bolus aa9 Medication: 08/27 19:47 VIS not applicable for this client. aa9 Outcome: 16:39 Decision to Hospitalize by Provider. lorenzo 19:47 Admitted to ER Hold. Please see [facility] for further documentation. aa9 19:47 Condition: stable 19:47 Instructed on the need for admit. 08/28 05:25 Patient left the ED. aa9 Signatures: Dispatcher [employer] Misha Cueto MD MD cha Avalos, Aylin, RN RN aa9 Narcisa Calixto RN RN kr3
--- NOTE | 2022-08-27 16:40 | EDPHYS ---
Physician Documentation [facility] Name: Pricila Franklin Age: 62 yrs Sex: Female : 1960 Arrival Date: 08/27/2022 Time: 13:18 Bed 16 Private MD: ED Physician Misha Chua HPI: 08/27 16:21 This 62 yrs old Female presents to ER via EMS with complaints of FALL, lorenzo WEAKNESS AND ALTERED X 3DAYS. 16:21 FALL AND WEAK SATURDAY , FALL ON LEFT HUMERUS FX. Details of fall: The patient fell lorenzo from an upright position, while standing, while walking. Onset: The symptoms/episode began/occurred 3 day(s) ago. Associated injuries: The patient sustained injury to the head, neck injury, upper back injury, injury to the low back. The patient presents with confusion, trouble concentrating. Possible causes: CVA or TIA, drug use, head injury, low blood sugar, sepsis, unknown. Associated signs and symptoms: Pertinent positives: ataxia, confusion, dizziness, gait abnormality, headache. Patient's baseline: Neuro: alert and fully oriented, Motor: no deficits, Ambulation: unable to walk, WEAK X 3 DAYS, Speech: normal. Historical: - Allergies: 15:42 No Known Allergies; kr3 - PMHx: 13:30 cirrhosis of liver; stage 3; Diabetes - NIDDM; kr3 - Immunization history:: Adult Immunizations not up to date. - Social history:: Smoking status: Patient denies any tobacco usage or history of. - Family history:: not pertinent. ROS: 16:21 Constitutional: Negative for fever, chills, and weight loss, Eyes: Negative for injury, lorenzo pain, redness, and discharge, ENT: Negative for injury, pain, and discharge, Neck: Negative for injury, pain, and swelling, Cardiovascular: Negative for chest pain, palpitations, and edema, Respiratory: Negative for shortness of breath, cough, wheezing, and pleuritic chest pain, Abdomen/GI: Negative for abdominal pain, nausea, vomiting, diarrhea, and constipation, Back: Negative for injury and pain, : Negative for injury, bleeding, discharge, and swelling, Skin: Negative for injury, rash, and discoloration, Psych: Negative for depression, anxiety, suicide ideation, homicidal ideation, and hallucinations, Allergy/Immunology: Negative for hives, rash, and allergies, Endocrine: Negative for neck swelling, polydipsia, polyuria, polyphagia, and marked weight changes, Hematologic/Lymphatic: Negative for swollen nodes, abnormal bleeding, and unusual bruising. 16:21 MS/extremity: Positive for decreased range of motion, pain, of the left bicep and left tricep. Exam: 16:21 Constitutional: This is a well developed, well nourished patient who is awake, alert, lorenzo and in no acute distress. Eyes: Pupils equal round and reactive to light, extra-ocular motions intact. Lids and lashes normal. Conjunctiva and sclera are non-icteric and not injected. Cornea within normal limits. Periorbital areas with no swelling, redness, or edema. ENT: Nares patent. No nasal discharge, no septal abnormalities noted. Tympanic membranes are normal and external auditory canals are clear. Oropharynx with no redness, swelling, or masses, exudates, or evidence of obstruction, uvula midline. Mucous membranes moist. Neck: Trachea midline, no thyromegaly or masses palpated, and no cervical lymphadenopathy. Supple, full range of motion without nuchal rigidity, or vertebral point tenderness. No Meningismus. Chest/axilla: Normal chest wall appearance and motion. Nontender with no deformity. No lesions are appreciated. Cardiovascular: Regular rate and rhythm with a normal S1 and S2. No gallops, murmurs, or rubs. Normal PMI, no JVD. No pulse deficits. Respiratory: Lungs have equal breath sounds bilaterally, clear to auscultation and percussion. No rales, rhonchi or wheezes noted. No increased work of breathing, no retractions or nasal flaring. Abdomen/GI: Soft, non-tender, with normal bowel sounds. No distension or tympany. No guarding or rebound. No evidence of tenderness throughout. Back: No spinal tenderness. No costovertebral tenderness. Full range of motion. Female : Normal external genitalia. Skin: Warm, dry with normal turgor. Normal color with no rashes, no lesions, and no evidence of cellulitis. MS/ Extremity: Pulses equal, no cyanosis. Neurovascular intact. Full, normal range of motion. Neuro: Awake and alert, GCS 15, oriented to person, place, time, and situation. Cranial nerves II-XII grossly intact. Motor strength 5/5 in all extremities. Sensory grossly intact. Cerebellar exam normal. Normal gait. Psych: Awake, alert, with orientation to person, place and time. Behavior, mood, and affect are within normal limits. 16:21 ENT: Mouth: Oral mucosa: dry, Gums: normal with healthy appearance, Tongue: displays fissures, abscess, is not appreciated, Posterior pharynx: no acute changes, Airway: normal, no evidence of obstruction, Tonsils: are normal in appearance, Uvula: normal, swelling, is not appreciated. 16:21 ECG was reviewed by the Attending Physician. Vital Signs: 13:18 BP 115 / 63; Pulse 91; Resp 20; Temp 98.2(O); Pulse Ox 96% on R/A; kr3 MDM: 14:11 Patient medically screened. lorenzo 16:28 Differential Diagnosis altered mental status, sepsis, flu. Differential diagnosis: lorenzo abrasion, closed head injury, contusion, fracture, laceration, multiple trauma, sprain, strain, CVA, electrolyte abnormality, alcohol intoxication, hypoglycemia, intracranial bleed, overdose, pneumonia, sepsis, UTI, volume depletion. Data reviewed: vital signs, nurses notes, lab test result(s), EKG, radiologic studies, CT scan, plain films. Data interpreted: groundwater monitoring technician: rate is 91 beats/min, rhythm is regular, Pulse oximetry: on room air is 96 %. Test interpretation: by ED physician or midlevel provider: ECG, plain radiologic studies. Counseling: I had a detailed discussion with the patient and/or guardian regarding: the historical points, exam findings, and any diagnostic results supporting the discharge/admit diagnosis, lab results, radiology results, the need for further work-up and treatment in the hospital. 08/27 14:09 Order name: Basic Metabolic Panel; Complete Time: 15:16 [facility] 08/27 14:09 Order name: CBC with Diff; Complete Time: 15:16 [facility] 08/27 14:09 Order name: LFT's; Complete Time: 15:16 [facility] 08/27 14:09 Order name: Magnesium; Complete Time: 15:16 [facility] 08/27 14:09 Order name: NT PRO-BNP; Complete Time: 15:16 [facility] 08/27 14:09 Order name: PT-INR; Complete Time: 15:16 [facility] 08/27 14:09 Order name: Troponin HS; Complete Time: 15:16 [facility] 08/27 14:09 Order name: SARS RAPID; Complete Time: 15:16 [facility] 08/27 14:09 Order name: Urine Culture [facility] 08/27 14:09 Order name: AMMONIA; Complete Time: 15:16 [facility] 08/27 14:09 Order name: Lipase; Complete Time: 15:16 [facility] 08/27 14:10 Order name: Blood Culture Adult (2) [facility] 08/27 14:10 Order name: Lactate w/ 2H reflex if indic.; Complete Time: 15:50 [facility] 08/27 16:09 Order name: Urine Dipstick-Ancillary; Complete Time: 16:20 [facility] 08/27 14:09 Order name: XRAY Chest (1 view); Complete Time: 15:16 [facility] 08/27 14:09 Order name: CT Traumagram (Head C Spine CAP wo con); Complete Time: 15:50 [facility] 08/27 16:21 Order name: CK; Complete Time: 19:40 [facility] 08/27 16:21 Order name: Ckmb; Complete Time: 19:40 [facility] 08/27 16:30 Order name: Salicylate; Complete Time: 19:40 [facility] 08/27 16:30 Order name: Tylenol Level; Complete Time: 19:40 [facility] 08/27 17:31 Order name: CBC with Automated Diff [facility] 08/27 17:31 Order name: CBC with Automated Diff [facility] 08/27 17:31 Order name: Comprehensive Metabolic Panel [facility] 08/27 17:31 Order name: Comprehensive Metabolic Panel [facility] 08/27 17:31 Order name: Thyroid Stimulating Hormone [facility] 08/28 04:32 Order name: CBC Smear Scan [facility] 08/27 14:09 Order name: EKG; Complete Time: 14:10 [facility] 08/27 14:09 Order name: Cardiac monitoring; Complete Time: 14:10 [facility] 08/27 14:09 Order name: EKG - Nurse/Tech; Complete Time: 16:11 [facility] 08/27 14:09 Order name: IV Saline Lock; Complete Time: 14:10 [facility] 08/27 14:09 Order name: Labs collected and sent; Complete Time: 14:38 [facility] 08/27 14:09 Order name: O2 Per Protocol; Complete Time: 14:38 [facility] 08/27 14:09 Order name: O2 Sat Monitoring; Complete Time: 14:38 [facility] 08/27 14:09 Order name: Urine Dipstick-Ancillary (obtain specimen); Complete Time: 16:11 lorenzo 08/27 16:30 Order name: PO challenge; Complete Time: 19:03 [facility] 08/27 17:31 Order name: NPO; Complete Time: 17:39 EDMS EC:21 Rate is 79 beats/min. Rhythm is regular. QRS Jasper is Normal. LA interval is normal. QRS lorenzo interval is normal. QT interval is normal. No Q waves. T waves are Normal. No ST changes noted. Clinical impression: NSR w/ Non-specific ST/T Changes and No evidence of ischemia. Interpreted by me. Reviewed by me. Administered Medications: 14:50 Drug: NS 0.9% 500 ml Route: IV; Rate: bolus; Site: right antecubital; kr3 14:51 Drug: Pepcid (famotidine) 20 mg Route: IVP; Site: right antecubital; kr3 14:51 Drug: Rocephin (cefTRIAXone) 1 grams Route: IV; Rate: per protocol; Site: right kr3 antecubital; 17:39 Drug: Aspirin Chewable Tablet 81 mg Route: PO; kr3 19:03 Not Given (Other Intervention Used): foLIC Acid 1 mg IVPB once kr3 19:03 Not Given (Other Intervention Used): Thiamine 100 mg IV at per protocol once kr3 19:03 Drug: Banana Bag - (NS 0.9% 1000 ml, foLIC Acid 1 mg, Thiamine 100 mg, Multivitamin 1 kr3 amp) Route: IV; Rate: 125 ml/hr; Site: right antecubital; 08/28 04:37 Not Given (Duplicate Order): NS 0.9% 1000 ml IV at 1 bolus Per protocol; 1000 mL bolus aa9 Disposition Summary: 08/27/22 16:39 Hospitalization Ordered Hospitalization Status: Observation lorenzo Provider: Addy Mast cha Condition: Fair lorenzo Problem: new lorenzo Symptoms: have improved lorenzo Bed/Room Type: Standard lorenzo Location: Telemetry/MedSurg (observation)(08/28/22 04:39) cg Room Assignment: 204(08/28/22 04:39) cg Diagnosis - Weakness lorenzo - Repeated falls lorenzo - Unspecified cirrhosis of liver lorenzo - Type 2 diabetes mellitus with hyperglycemia lorenzo - Fracture of upper end of humerus - SUBACUTE lorenzo - UTI/ Urinary tract infection, site not specified lorenzo - Dehydration lorenzo Forms: - Medication Reconciliation Form lorenzo - SBAR form lorenzo Signatures: Dispatcher [employer] EDMisha Daniel MD MD cha Mickail, Joel, PA PA jmm Nieto, Roman, MD MD rn Garcia, Cindy RN RN Vielka Larson RN RN jl7 Narcisa Calixto RN RN kr3 Mague Kearney RN aa9 Corrections: (The following items were deleted from the chart) 08/27 18:58 16:39 Telemetry/MedSurg (Inpatient) lorenzo jl7 18:58 16:39 lorenzo jl7 08/28 04:39 08/27 18:58 [facility] ER HOLD jl cg 08/28 04:39 08/27 18:58 ERHOLD- jl7
[2022-08-27] MEDS ORDERED: ASPIRIN 81 MG CHEWABLE TABLET ONE ×2 (17:11→19:57)
--- NOTE | 2022-08-27 17:34 | P.HP ---
Certification for Inpatient Patient admitted to: Observation With expected LOS: <2 Midnights Practitioner: I am a practitioner with admitting privileges, knowledge of patient current condition, hospital course, and medical plan of care. Services: Services provided to patient in accordance with Admission requirements found in Title 42 Section 412.3 of the Code of Federal Regulations Patient History Date of Service: 08/27/22 Reason for admission: Altered mental status fall History of Present Illness: Patient is 62 years of age currently on the as she had a fall she had a fracture of the humerus head as per patient was seen by orthopedic surgeon placed on a sling patient was then prescribed multiple medications including tramadol gabapentin and a muscle relaxant past 2 to 3 days LFTs stated that she is becoming even more altered confused slurred speech and worse today ended up here in the hospital no prior history of cardiopulmonary problems apparently there is a history of cirrhosis not drink alcohol Allergies No Known Allergies Allergy (Unverified 09/07/17 07:48) Home Medications: Loratadine [Claritin*] 1 tab PO DAILY 06/27/19 Metformin HCl [Metformin HCl ER] 1 tab PO BID 06/27/19 Mirtazapine 1 tab PO BEDTIME 06/27/19 metroNIDAZOLE [Flagyl] 500 mg PO Q8H #24 tablet 06/29/19 Amoxicillin [Amoxil Cap*] 500 mg PO TID #27 cap 07/03/19 Hydrocodone 7.5/APAP 325 [[place] 7.5/325 mg] 1 tab PO Q4HP PRN #30 tab 07/03/19 - Past Medical/Surgical History Diabetic: No -: Diabetes mellitus type 2 -: Cirrhosis of the liver -: Hysterectomy -: Bowel Resection -: Ovary Sx -: Kidney stone - Family History Mother -: Diabetes - Social History Alcohol use: No CD- Drugs: No Review of Systems 10-point ROS is otherwise unremarkable General: Weakness, Malaise Physical Examination - Vital Signs Temperature: 98.2 F Blood Pressure: 115/63 Pulse: 91 Respirations: 20 Pulse Ox (%): 96 - Physical Exam General: Alert, Other (Patient is drowsy but responds) HEENT: Atraumatic Neck: Supple Respiratory: Clear to auscultation bilaterally Cardiovascular: No edema, Normal pulses, Regular rate/rhythm Gastrointestinal: Normal bowel sounds, Soft and benign, Non-distended, No tenderness, No masses, No rebound Musculoskeletal: No clubbing, No swelling Neurological: Abnormal speech (Mildly slurred speech) - Studies Laboratory Data (last 24 hrs) 08/27/22 14:36: PT 13.7 H, INR 1.25 08/27/22 14:14: WBC 4.30, Hgb 11.7 L, Hct 35.2 L, Plt Count 96 L 08/27/22 14:14: Sodium 139, Potassium 4.0, BUN 19 H, Creatinine 0.95, Glucose 236 H, Magnesium 1.6, Total Bilirubin 0.8, AST 26, ALT 22, Alkaline Phosphatase 144 H, Lipase 79 Assessment and Plan - Problems (Diagnosis) (1) Altered mental status Current Visit: Yes Status: Acute Plan: Patient is 62 years of age had a fall on 20 August this year with a fracture of the head of the humerus as per patient was seen by orthopedic surgeon placed in a sling prescribed a variety of painkillers she does take gabapentin hydrocodone also on Ambien cyclobenzaprine all the bottles present at the bedside. With altered mental status only side effect of the medication prior history of cardiopulmonary problems labs reviewed minimal elevation of alkaline phosphatase plan to admit observe IV fluids Qualifiers: Altered mental status type: somnolence Qualified Code(s): R40.0 - Somnolence - Advance Directives Does patient have a Living Will: No Does patient have a Durable POA for Healthcare: No
[2022-08-27 18:00] LABS: CKMB Creatine Kinase MB 2.2 ng/mL (1.0-3.6)
[2022-08-27] MEDS: NA CHLORIDE 0.9% 1,000 ML IV SCH (18:00)
[2022-08-27] MEDS ORDERED: FOLIC ACID 1 MG, MULTIVITAMINS INJ 10 ML, THIAMINE HCL 100 MG in NA CHLORIDE 0.9% 1,000 ML IV ONE (19:00)
[2022-08-27] MEDS ORDERED: ASPIRIN 81 MG CHEWABLE TABLET PO ONE (19:00)
[2022-08-27 20:37] VITALS: BMI 32.3
[2022-08-27] MEDS ORDERED: KETOROLAC 30 MG/ML INJ IV ONE (22:06)
[2022-08-27] MEDS ORDERED: KETOROLAC 30 MG/ML INJ ONE (22:39)
[2022-08-28] MEDS ORDERED: NA CHLORIDE 0.9% 1,000 ML ONE (01:28)
[2022-08-28 03:02] LABS: Absolute Lymphocytes (CBC) 0.8 K/uL (0.7-4.9); Hematocrit 32.6 % (36.0-45.0); MCV 90.4 fL (80-100); MPV 8.9 fL (7.6-11.3); RBC Red Blood Cell Count 3.61 M/uL (3.86-4.86)
[2022-08-28 03:28] LABS: Albumin 2.7 g/dL (3.4-5.0); Bilirubin Total 0.7 mg/dL (0.2-1.0); Potassium 3.8 mmol/L (3.5-5.1); Protein, Total 6.6 g/dL (6.4-8.2); Thyroid Stimulating Hormone 1.06 uIU/mL (0.358-3.740)
[2022-08-28] MEDS: NA CHLORIDE 0.9% 1,000 ML IV SCH ×2 (04:00→06:25)
[2022-08-28 04:32] LABS: Blood Morphology Comment NOT SEEN (NOT SEEN); Platelet Estimate DECR; White Blood Cell Scan OK (OK)
[2022-08-28] MEDS ORDERED: KETOROLAC 30 MG/ML INJ IV ONE (04:48)
[2022-08-28] MEDS ORDERED: KETOROLAC 30 MG/ML INJ ONE (05:00)
[2022-08-28] MEDS ORDERED: HYDROCODONE/APAP 5/325 MG TAB PO PRN (08:51)
[2022-08-28 09:35] VITALS: O2SAT 97
--- NOTE | 2022-08-28 13:40 | EKG ---
Test Date: 2022-08-27 Test Time: 15:29:01 Welfare Visitor: DARIA MEASUREMENT RESULTS: Intervals: Rate: 79 NE: 178 QRSD: 80 QT: 420 QTc: 481 [place]: P: 28 NE: 178 QRS: 11 T: 53 INTERPRETIVE STATEMENTS: Normal sinus rhythm Possible Anterior infarct, age undetermined Abnormal ECG Compared to ECG 08/10/2022 20:56:49 No significant changes Electronically Signed On 08-28-22 13:38:10 PACKING INSPECTOR by Genaro Jaramillo
[2022-08-28] MEDS ORDERED: HYDROCODONE/APAP 5/325 MG TAB PO ONE (14:00)
--- NOTE | 2022-08-28 14:47 | P.DS ---
Admission Date: 08/27/22 Discharge Date: 08/28/22 Disposition: ROUTINE DISCHARGE Discharge Condition: FAIR Reason for Admission: Altered mental status fall - Problems (1) Acute metabolic encephalopathy Current Visit: Yes Status: Acute (2) Polypharmacy Current Visit: Yes Status: Acute (3) Left humeral fracture Current Visit: Yes Status: Acute (4) Central stenosis of spinal canal Current Visit: Yes Status: Acute (5) Diabetes mellitus type 2 in obese Current Visit: No Status: Acute (6) Liver cirrhosis Current Visit: No Status: Acute Brief History of Present Illness: 62 years old woman with past medical history of diabetes mellitus, liver cirrhosis was here on the after she had fall and fractured her humerus. She was seen by orthopedic surgeon who placed on a sling and then prescribed multiple medications psychotropic medications including tramadol, gabapentin and cyclobenzaprine. She later became confused and developed slurred speech and was therefore brought to the emergency department. CT scans showed no new fracture but demonstrated large C5-C6 osteophyte causing spinal stenosis. Patient's symptoms deemed to be related to polypharmacy. She was hospitalized for further management. Hospital Course: Patient placed on observation on the medical floor, and her home pain medications which included gabapentin, cyclobenzaprine, tramadol and zolpidem were held. Her mental status improved to baseline. Patient became alert, communicating meaningfully and ambulating. She was evaluated by PT who determined patient is independent with no needs. Patient with CT scan showing large C5-6 disc osteophyte with central canal stenosis. She has no neurologic deficit, no limb weakness, no stool or urine incontinence, just mild tenderness on palpation of the back of the neck. CT spine result discussed with Dr. Cancino who recommended to discuss the case with spine surgery Dr. Raymundo Ling. Dr. Ling recommended outpatient follow-up with a disc containing the CT images. Her pain was managed today with oral [place] and patient feels the [place] has been effective in controlling her pain. She is discharged with [place]. Patient also informed to take ibuprofen as adjunct. She has agreed to follow-up with Dr. Ling regarding the spinal central canal stenosis. Vital Signs/Physical Exam: Temp Pulse Resp BP Pulse Ox 97.0 F 84 17 140/78 97 08/28/22 12:00 08/28/22 12:00 08/28/22 13:45 08/28/22 12:00 08/28/22 13:45 General: Alert, In no apparent distress, Oriented x3 HEENT: Mucous membr. moist/pink Neck: JVD not distended Respiratory: Clear to auscultation bilaterally, Normal air movement Cardiovascular: No edema, Regular rate/rhythm, Normal S1 S2 Gastrointestinal: Normal bowel sounds, Soft and benign, Non-distended, No tenderness Musculoskeletal: No swelling Integumentary: No rashes, No cyanosis Neurological: Normal speech, Normal strength at 5/5 x4 extr, Cranial nerves 3-12 intact Laboratory Data at Discharge: WBC 3.40 K/uL (4.3-10.9) L 08/28/22 02:09 Hgb 10.8 g/dL (12.0-15.0) L 08/28/22 02:09 Hct 32.6 % (36.0-45.0) L 08/28/22 02:09 Plt Count 81 K/uL (152-406) L 08/28/22 02:09 PT 13.7 SECONDS (9.5-12.5) H 08/27/22 14:36 INR 1.25 08/27/22 14:36 Sodium 143 mmol/L (136-145) 08/28/22 02:09 Potassium 3.8 mmol/L (3.5-5.1) 08/28/22 02:09 BUN 16 mg/dL (7-18) 08/28/22 02:09 Creatinine 0.77 mg/dL (0.55-1.02) 08/28/22 02:09 Glucose 169 mg/dL (74-106) H 08/28/22 02:09 Magnesium 1.6 mg/dL (1.6-2.4) 08/27/22 14:14 Total Bilirubin 0.7 mg/dL (0.2-1.0) 08/28/22 02:09 AST 26 U/L (15-37) 08/28/22 02:09 ALT 20 U/L (13-56) 08/28/22 02:09 Alkaline Phosphatase 123 U/L (45-117) H 08/28/22 02:09 Lipase 79 U/L (73-393) 08/27/22 14:14 Home Medications: Loratadine [Claritin*] 1 tab PO DAILY 06/27/19 Mirtazapine 1 tab PO BEDTIME 06/27/19 Estradiol [Estrace] 0.5 mg PO DAILY 08/27/22 Meloxicam 7.5 tab PO DAILY 08/27/22 Ondansetron [Zofran (Odt)*] 4 mg PO Q6HR PRN 08/27/22 Hydrocodone 7.5/APAP 325 [[place] 7.5/325 mg] 1 tab PO Q6H PRN #15 tab 08/28/22 New Medications: Hydrocodone 7.5/APAP 325 [[place] 7.5/325 mg] 1 tab PO Q6H PRN #15 tab PRN Reason: Pain Diet: ADA Activity: Fall precautions Followup: Mack Root MD [Primary Care Provider] - 1-2 Weeks
[2022-08-28 16:46] VITALS: BP 135/84; TEMP 97.1
== END 2022-08-28 16:58 | disposition home or self-care (01) ==
LOC: ER 13:15 → ERHOLD 17:28 → 2ND 08-28 04:55
PROVIDERS: ADMIT Internal Medicine Sleep Medicine; ATTEND Internal Medicine
DX: G93.41 Metabolic encephalopathy (principal); R40.0 Somnolence; M48.00 Spinal stenosis, site unspecified; K74.60 Unspecified cirrhosis of liver; S42.302D Unspecified fracture of shaft of humerus, left arm, subsequent encounter for fracture with routine healing; T50.995A Adverse effect of other drugs, medicaments and biological substances, initial encounter; N39.0 Urinary tract infection, site not specified; E86.0 Dehydration; Z20.822 Contact with and (suspected) exposure to COVID-19
CPT/HCPCS: 93005; 87040 ×2; 87088; 85025 ×2; 87086; 80048; 36415; 82140; 83735; 82550; 80329 ×2; 85610; 82947 ×2; 80076; 83605; 84443; 87077; 87186; 81003; 84484; 82553; 83690; 80053; 83880; 70450; 71250; 72125; 71045; 97116; 97161; 94760; 96375; 96374; 99285; 87811; J3411; J7040; J7030 ×4; G0378 ×3